=== PATIENT | female | born 1945 | race Caucasian/White ===

== ENCOUNTER 2023-10-26 21:40 | Inpatient (IN) | payer MEDICARE, OTHER, SELFPAY ==
[2023-10-26] VITALS (22 sets, daily range): BP systolic 56–150; BP diastolic 39–108; PULSE 2–122; BMI 22.6
--- NOTE | 2023-10-26 18:19 | ED.GENMED ---
Addendum entered and electronically signed by Boom Harmon, DO 10/27/23 21:51:
Error:
In the MDM, it should read 'EKG performed immediately showing NO evidence of STEMI.'
Original Note:
History of Present Illness
General
Chief Complaint: Breathing Problem
Source: patient and ambulance crew
Exam Limitations: none
Time Seen by Provider: 10/26/23 18:14
History of Present Illness
History of Present Illness:
See MDM
Past History
Past History
ED Past Medical History: COPD and Hypothyroidism
ED Past Surgical History: Negative Cardiac
Social History
Tobacco: Former smoker
Alcohol: None
Drug: None
Personal: Single
Living: alone
Employment: Retired
Family History
Family History: Other (Noncontributory)
Phy Exam
Physical Exam
Physical Exam:
See MDM
Scores
Heart Failure Risk
Heart Failure Risk Score: Not Applicable
Course
Orders/Labs/Results
Orders:
Orders
10/26/23 Dinner
NPO
Allow oral meds: No
Allow clear liquids: No
NPO with Ice Chips: No
10/26/23 18:08
Electrocardiogram (*1) Urgent
Reason for Study: Shortness of Breath
EKG- Treatment ONCE
10/26/23 18:14
BNP [NT-proBNP] Urgent
Complete Blood Count/With Diff Urgent
Comprehensive Metabolic Panel Urgent
Lactic Acid Urgent
PTT Urgent
Troponin I Urgent
Albuterol Sulfate [Ventolin Nebules] 7.5 mg INH R NOW STA
Dexamethasone Sod Phosphate [Decadron] 10 mg IV NOW STA
Ipratropium Nebs [Atrovent Nebules] 1 mg INH R NOW STA
CR Chest Portable - 1 View Urgent
Comment:
Reason For Exam: SOB
Reason Study Needs to be Portable: Patient Unstable
10/26/23 19:01
CT Chest Pe Study Urgent
Comment:
Reason For Exam: SOB, hypoxic
10/26/23 19:07
Furosemide [Lasix] 40 mg IV NOW STA
10/26/23 19:36
Propofol 1,000,000 Mcg/100 ml [Diprivan] 1,000,000 mcg in 100 ml IV NOW
Indication:: Light Sedation
Begin Infusion:: Now
Goal:: RASS 0 to -2
Maximum dose in mcg/kg/min:: 50
Initial dose based on RASS:: Yes
If RASS is:: +1 or pt hemodynamically unstable (SBP < 90mmHg), initiate at 10 mcg/kg/min
If RASS is:: +2, initiate at 20 mcg/kg/min
If RASS is:: greater than or equal to +3, initiate at 30 mcg/kg/min
Titration Instructions:: Titrate by 5-10 mcg/kg/min every 5 minutes until RASS 0 to -2 achieved.
Taper Instructions:: If RASS is at or below goal for 4 consecutive hours decrease infusion by
Taper Instructions:: 5-10 mcg/kg/min every 2 hours to off.
Over-sedation Instructions:: If CPOT 0-2 (at goal) AND RASS -3 to -5 (below goal) decrease sedative by
Over-sedation Instructions:: 50% first. If pain score remains at goal and RASS remains below goal in
Over-sedation Instructions:: 1 hour, decrease opioid infusion by 50%.
Notify provider:: immediately if patient exhibits signs/symptoms of propofol-related
Notify provider:: infusion syndrome.
Additional Instructions:: Patient MUST be mechanically ventilated and MUST receive analgesia.
CR Chest Portable - 1 View Urgent
Comment:
Reason For Exam: intubated
Reason Study Needs to be Portable: Patient Unstable
10/26/23 19:42
Ventilator Initial Settings [RESP] Urgent
Tidal Volume: 400
Rate: 14
FIO2: 100
PEEP: 5
10/26/23 19:44
COVID-19 Antigen Urgent
Source: Nasal Swab
Triglycerides Routine
Comment: baseline levels with propofol infusion
Influenza A+B Rapid Molecular Urgent
MANUEL Source: Nasal Swab
Specimen Description:
10/26/23 20:15
ABG [Arterial Blood Gas] Urgent
%Oxygen/Room Air: 100
Comment: Intubated
10/26/23 20:47
Consult Cardiology [CARDIOLOGY CONSULT] Routine
Consulting Provider: Rohith Molina
Was physician already notified: Yes
10/26/23 20:58
Heparin 3,900 units IV NOW STA
10/26/23 20:[address] Non Medication Order As Directed
Physician Order: PTT 6 hours after initial start of Heparin infusion
Above order entered?: Yes
10/26/23 21:00
Heparin 37820 Units/250 ml 25,000 units in 250 ml IV PER PROTOCOL
Weight to be used for heparin protocol in kilograms (kg):: 65
Protocol:: Cardiac Tx/Acute Coronary
PTT Goal Range to be used:: PTT 73 to 111 seconds
Order type:: Initial
INITIAL Infusion Dose (UNITS/KG/hr) & then follow protocol:: 12 units/kg/hr
Infusion Dose in UNITS/hr & then follow protocol (UNITS/hr):: 800
INFUSION RATE in mL/hr & then follow protocol (mL/hr):: 8
PTT less than or equal to 64 seconds:: Increase rate by 200 units/hr (+ 2 mL/hr)
PTT 64.1 to 72.9 seconds:: Increase rate by 100 units/hr (+ 1 mL/hr)
PTT 73 to 111 seconds:: Target Range. No change in rate.
PTT 111.1 to 130.9 seconds:: Decrease rate by 100 units/hr (- 1 mL/hr)
PTT 131 to 199.9 seconds:: HOLD for 1 hr. Then decrease rate by 200 units/hr (- 2 mL/hr)
PTT greater than or equal to 200 seconds:: HOLD for 2 hrs & Notify Provider. Then decrease by 200 units/hr (-
2 mL/hr)
Lab follow-up:: Each change, PTT q6h until 2 consecutive are therapeutic. Then PTT
daily.
10/26/23 21:12
Heparin 15858 Units/250 ml 25,000 units in 250 ml .ROUTE .STK-MED
10/26/23 21:28
Admit/Transfer Patient As Directed
Co-Sign Provider:
Level of Care: Inpatient admission
Assign to:: ICU
Physician / Group: aditi das
Diagnosis: hypercarbic resp failure,copd exac, Nstemi
Reason for Hospitalization: hypercarbic resp failure,copd exac, Nstemi
Expected length of stay greater than two midnights?: Yes
ELOS- Estimated Length of Stay in days: 5
I certify the patient meets the requirements for IP care: Yes
Code Status As Directed
Resuscitation Status: Full Code
10/26/23 21:33
Blood Culture Q30M
MANUEL Source: Blood/Venous
Specimen Description:
Blood Culture Q30M
MANUEL Source: Blood/Venous
Specimen Description:
10/26/23 21:34
Tractor Engine Assembler Consult Routine
Consulting Provider: Sunday Mina
Was physician already notified: Yes
Reason for consult: hypercarbic resp failure, ibtuation, nstemi
10/26/23 21:[address] Non Medication Order As Directed
Physician Order: place oral gastric tube to intermittent low suction
Above order entered?: Yes
10/26/23 22:19
Dextrose 50%-Water [Dextrose 50% Syringe] 12.5 grams IV [id number] PRN
Glucagon [GlucaGen] 1 mg IM PRN PRN
10/26/23 22:19
VTE Contraindication Routine
VTE Mechanical Device Contraindication: Medical Contraindication
Pharmocologic Contraindication: Medical Contraindication
Comment: pt to bestarted on heparin gtt
Heparin Protocol- PTT Orders As Directed
PTT per Heparin protocol: -Obtain CBC and baseline PTT - if not already collected.
-Obtain PTT 6 hours from start of infusion. Then, every 6 hours until 2 consecutive
PTT's are therapeutic. Then, PTT Daily.
-With each rate change, obtain PTT every 6 hours until 2 consecutive PTT's are
therapeutic. Then, PTT Daily.
Activity As Directed
Activity Level: Bedrest
Bedside Glucose Monitoring As Directed
Frequency: AC&HS
Comment: Change to q6h if pt on TPN, tube feeding or not eating
Intake/ Output As Directed
Frequency: Per unit guidelines
Notify MD As Directed
Notify physician if: PTT is greater than or equal to 200.
Vital Signs As Directed
Frequency: Per unit guidelines
Weight As Directed
Frequency: Daily
Pulse Ox/spot Check [RESP] Routine
Quantity: 1
Ot Eval And Treat Routine
Pt Eval And Treat Routine
Activity Level: As Tolerated
10/26/23 22:33
Osmolality Serum [Serum Osmolality] Routine
Urine Osmolality Random [Osmolality, Random Urine] Routine
Date Specimen was Collected: 10/26/23
Time Specimen was Collected: 22:25
Urine Sodium Routine
Date Specimen was Collected: 10/26/23
Time Specimen was Collected: 22:25
10/27/23 01:55
Troponin I Q6H
10/27/23 02:00
Dexamethasone Sod Phosphate [Decadron] 4 mg IV Q6H
10/27/23 03:19
Cardiovascular Evaluation IN AM
Complete Blood Count/With Diff IN AM
Comprehensive Metabolic Panel IN AM
Glycohemoglobin (HgbA1c) IN AM
TSH Reflex To Free T4 IN AM
10/27/23 06:00
Echo 2D MMode Color/Doppler IN AM
Reason for Study: nstemi
Cardiology Consult: Rohith Molina
10/27/23 07:30
Insulin Aspart Corrective Low [Novolog Flexpen-Low Resistance] See Protocol SC AC
10/27/23 08:00
Ipratropium/Albuterol Sulfate [Duoneb] 3 ml INH R QID
Pantoprazole [Protonix IV] 40 mg IV DAILY
10/27/23 10:36
Troponin I Q6H
10/28/23 06:00
Complete Blood Count/No Diff Q2D
Comment: notify provider: Platelet count < 130,000 or decrease by 50% from baseline
Complete Blood Count/With Diff IN AM
Comprehensive Metabolic Panel IN AM
10/29/23 06:00
Complete Blood Count/With Diff IN AM
Comprehensive Metabolic Panel IN AM
10/30/23 06:00
Complete Blood Count/No Diff Q2D
Comment: notify provider: Platelet count < 130,000 or decrease by 50% from baseline
Complete Blood Count/With Diff IN AM
Comprehensive Metabolic Panel IN AM
11/01/23 06:00
Complete Blood Count/No Diff Q2D
Comment: notify provider: Platelet count < 130,000 or decrease by 50% from baseline
11/03/23 06:00
Complete Blood Count/No Diff Q2D
Comment: notify provider: Platelet count < 130,000 or decrease by 50% from baseline
11/05/23 06:00
Complete Blood Count/No Diff Q2D
Comment: notify provider: Platelet count < 130,000 or decrease by 50% from baseline
11/07/23 06:00
Complete Blood Count/No Diff Q2D
Comment: notify provider: Platelet count < 130,000 or decrease by 50% from baseline
11/09/23 06:00
Complete Blood Count/No Diff Q2D
Comment: notify provider: Platelet count < 130,000 or decrease by 50% from baseline
11/11/23 06:00
Complete Blood Count/No Diff Q2D
Comment: notify provider: Platelet count < 130,000 or decrease by 50% from baseline
Abnormal Lab Results
10/26/23 10/26/23
18:14 20:15
WBC 15.6 H 10^3/uL
(4.8-10.8)
Abs Immat Gran (auto) 0.1 H 10^3/uL
(0-0.05)
Absolute Neuts (auto) 11.5 H 10^3/uL
(1.4-6.5)
Absolute Monos (auto) 0.8 H 10^3/uL
(0.1-0.6)
Lymphocytes % 17.5 L %
(20.5-51.1)
pH 7.20 L
(7.35-7.45)
pCO2 70 H mmHg
(32-35)
pO2 390 H mmHg
(83-108)
ABG O2 Sat (Measured) 100.0 H %
(94-98)
Sodium 129 L mmol/L
(135-145)
Creatinine 0.5 L mg/dL
(0.6-1.0)
Glucose 253 H mg/dl
(70-99)
Lactic Acid 2.7 H mmol/L
(0.7-2.0)
AST 69 H U/L
(14-36)
ALT 53 H U/L
(0-35)
Troponin I 2.500 H* ng/ml
10/26/23 18:14
10/26/23 18:14
Vital Signs
Initial and Last Documented VS:
Initial Vital Signs
Temp Pulse Resp BP Pulse Ox
97.7 F 114 26 144/108 97
10/26/23 18:08 10/26/23 18:08 10/26/23 18:08 10/26/23 18:08 10/26/23 18:08
Last Documented Vital Signs
Temp Pulse Resp BP Pulse Ox
100.1 F 96 18 118/78 95
10/27/23 12:17 10/27/23 11:30 10/27/23 11:30 10/27/23 11:00 10/27/23 12:00
Procedures
Intubations
Procedure completed by: Boom Harmon DO
Method of Intubation: glidescope
Tube size (cm): 7.5
Placement confirmed by: auscutation, CXR, capnography and direct visualization
Breath sounds after intubation: equal
Intubation complications: no complications
MDM/Problems Addressed
Differential Diagnosis Includes:
HPI and MDM Narrative:
77-year-old female presenting with shortness of breath over the past 4 days. EMS arrived and provided aspirin and nitroglycerin. They also provided DuoNeb. EKG performed by EMS was concerning for STEMI. It was transmitted. I did appreciate the
mild ST elevations anteriorly but she has a left bundle branch block and has no reciprocal changes. On arrival, patient has significant wheezing. She has a history of COPD and states she is actively smoking
EKG performed immediately showing evidence of STEMI. Patient started on IV Decadron and hour-long nebulizer treatment
Given her respiratory distress, I did have a conversation with patient in regards to intubation. Patient states she gives consent for intubation if need
Physical exam
General: Uncomfortable, tachypneic, air hungry
HEENT: protecting airway
Neck: appears supple
CV: No evidence of cyanosis. Tachycardic
Resp: accessory muscle use. Significant wheezing throughout
Abd: Non-distended
Extremities: No deformities. No leg edema
Neuro: alert
Psych: Mildly anxious
Skin: Intact
Problems Addressed including Acute and Chronic Conditions affecting care:
1. COPD exacerbation
Acuity: acute
Prognosis: unstable
Details: patient given IV steroids and hour-long treatment nebulizer
2. CANSECO
Acuity: acute
Prognosis: unstable
Details: given the elevated trop, possible ACS. Heparin drip started
Updates
7 PM patient decompensating. Respiratory at bedside to give trial of BiPAP. This time, troponin found to be elevated. Will obtain CT to rule out PE. Chest x-ray concerning for pulmonary edema. Patient given dose of IV Lasix
7:30 PM patient decompensated even more. She is becoming more tachycardic and more lethargic. Patient is asking to go to sleep. Patient intubated without complications or difficulty
Given the respiratory distress with the elevated troponin, I am concerned she had a coronary event 4 days ago causing the symptoms.
Case discussed with cardiology. Will start heparin drip. CT neg for acute PE
ABG consistent with Respiratory acidosis. Will increase respiratory rate
Differential Diagnosis (but not limited to): COPD exacerbation, ACS, pneumonia
Testing considered: D-dimer
Drug therapy (if applicable): OTC meds, please see d/c instruction regarding Rx drugs
Amount and/or Complexity of Data Reviewed
Clinical info obtained from: Patient
External data reviewed: N/A
Labs I independently reviewed (but not limited to): Elevated troponin
Radiology: X-ray independently reviewed: Chest x-ray concerning for pulmonary edema
Pulse Ox: hypoxic
EKG independently reviewed: Sinus tachycardia, left bundle branch block, left axis, no STEMI
Shank Sorter: Sinus tachycardia
Critical Care: The high probability of a clinically significant, sudden or life threatening deterioration of the cardiopulmonary system(s) required my full and direct attention, intervention and personal management. The aggregate critical care time
was 33 minutes. This time is in addition to time spent performing reported procedures but includes the following:
[x] Data Review and interpretation
[x] Patient assessment and monitoring of vital signs
[x] Documentation
[x] Medication orders and management
Risk of Complication:
Social Determinants of health: Good social support
Discussed with other providers: Hospitalist, commissioned police officer
Escalation of Care includes Admit/Obs: Given acute respiratory failure, patient intubated and will admit
Occasional wrong word or 'sound a like' substitutions may have occurred due to the inherent limitations of voice recognition software. Read the chart carefully and recognize, using context, where substitutions have occurred.
*Critical Care Note
Total Time (30-74mins, 75-104mins- exclusive of procedures): 33 min
ED Attending Note
-
Portions of this chart may have been created with voice recognition software.� Occasional wrong word or��sound alike� substitutions may have occurred due to the inherent limitations of voice recognition software.
Discharge Plan
Departure
Patient Disposition: Admit
Date of Disposition: 10/26/23
Time of Disposition: 19:43
Admit to: ICU
Presentation/result/management discussed w/ accepting MD/DO: Hospitalist
Discharge Problem:
Acute respiratory failure, COPD with acute exacerbation
Interventions
Interventions:
*Risk Screen - Suicide Last Done: 10/26/23 18:08
*General Assessment Last Done: 10/26/23 18:08
*Neglect/Abuse Screening Last Done: 10/26/23 18:08
*ED COVID-19 Vaccine History Last Done: 10/26/23 18:08
*Nursing Disposition Last Done: 10/26/23 22:23
ED- Cardiac Assessment Last Done: 10/26/23 18:37
ED- Pulmonary Assessment Last Done: 10/26/23 18:37
Discharge Date and Time
Discharge Date/Time: 10/26/23 22:23
[2023-10-26 18:22] LABS: % Basophils 0.6 % (0-2); % Eosinophils 3.1 % (0-6); % Immature Granulocytes 0.4 % (0-0.5); % Lymphocytes 17.5 % (20.5-51.1); % Monocytes 4.9 % (1.7-9.3); % Neutrophils 73.5 % (42.2-75.2); Absolute Basophils 0.1 10^3/uL (0-0.2); Absolute Eosinophils 0.5 10^3/uL (0-0.7); Absolute Immature Granulocytes 0.1 10^3/uL (0-0.05); Absolute Lymphocytes 2.7 10^3/uL (1.2-3.4); Absolute Monocytes 0.8 10^3/uL (0.1-0.6); Absolute Neutrophils 11.5 10^3/uL (1.4-6.5); Hematocrit 42.9 % (37.0-47.0); Hemoglobin 14.8 g/dL (12.0-16.0); Mean Corp Hgb Conc. 34.5 g/dL (33.0-37.0); Mean Corpuscular Hgb 29.2 pg (27.0-31.0); Mean Corpuscular Volume 84.6 fL (81.0-99.0); Mean Platelet Volume 8.4 fL (7.4-10.4); Nucleated Red Blood Cells % 0 %; Platelet Count 361 10^3/uL (130-400); Red Blood Cell Count 5.07 10^6/uL (4.20-5.40); Red Cell Dist. Width 12.8 % (11.5-14.5); White Blood Cell Count 15.6 10^3/uL (4.8-10.8)
[2023-10-26] MEDS: DECADRON 10 MG IV (18:23)
[2023-10-26] MEDS: VENTOLIN NEBULES 7.5 MG INH (18:23)
[2023-10-26] MEDS: ATROVENT NEBULES 1 MG INH (18:24)
[2023-10-26 18:33] LABS: APTT 26.8 Sec (23.4-35.0)
[2023-10-26 18:45] LABS: ALT (SGPT) 53 U/L (0-35); AST (SGOT) 69 U/L (14-36); Albumin 4.5 g/dl (3.5-5.0); Alkaline Phosphatase 106 U/L (38-126); Blood Urea Nitrogen 11 mg/dl (7-17); Calcium 10.2 mg/dl (8.4-10.2); Carbon Dioxide 23 mmol/L (22-30); Chloride 98 mmol/L (98-107); Glucose 253 mg/dl (70-99); Lactic Acid 2.7 mmol/L (0.7-2.0); Potassium 4.4 mmol/L (3.5-5.1); Sodium 129 mmol/L (135-145); Total Bilirubin 0.4 mg/dl (0.2-1.3); Total Protein 7.2 g/dl (6.3-8.2); eGFR > 60.00
[2023-10-26 18:59] LABS: NT-proBNP 447 pg/ml
[2023-10-26] MEDS: LASIX 40 MG IV (19:13)
--- NOTE | 2023-10-26 19:22 | PHANOTE ---
10/26/2023, med rec tech, pt. placed on vent at time of interview; used recent pharmacy fill data to compile a list of pt.'s meds.; was not able to reach family on the phone; pt. has no [facility] records.
--- NOTE | 2023-10-26 19:25 | EDRN ---
20mg etomidate and 10mg vecc was given at this time. Dr. Harmon intubated patient using GlideScope, 7.5 ETT measured at 20 at the lip.
Patient started on propofol for sedation.
--- NOTE | 2023-10-26 19:34 | EDRN ---
propofol started at 7.8ml/hr (20mcg)
[2023-10-26] MEDS: DIPRIVAN 100 IV (19:39)
--- NOTE | 2023-10-26 19:48 | EDRN ---
Patient swabbed for covid and flu.
Portable xray showed ET tube was a little high. Moved from 20 at the lip to 22 at the lip per Dr. Harmon.
Patient ready for CT.
[2023-10-26 20:19] LABS: COVID-19 Antigen Negative (Negative); Triglycerides 105 mg/dl (10-149)
--- NOTE | 2023-10-26 20:22 | EDRN ---
Patient showing improvement after being intubated. Patient's heart rate has come down into the 80-90's. Patient's oxygen is at 100% with no preliminary showing of any PE on the CT. ABG being obtained by respiratory at this time. Patient has purewick
in place.
2 IV sites. Right 18g with propofol infusing still at initial rate of 20, left 20g. Patient's BP 114/81.
400/14/100/5 currently.
Currently waiting for admission orders.
[2023-10-26 20:31] LABS: B.E. -2.5 mmol/L; HCO3 27.4 mmol/L (21-28); PCO2 70 mmHg (32-35); PO2 390 mmHg (83-108)
--- NOTE | 2023-10-26 20:49 | EDRN ---
Rate changed from [address] Harmon according to AB results.
--- NOTE | 2023-10-26 20:59 | HPS.HSE ---
Addendum entered and electronically signed by Amy Woods MD 10/27/23 00:15:
Hyperglycemia - Glucose 253. No prior dgx of diabetes and now on steroids.
- check a1c, start sliding scale insulin q 6 hours for now
- lipid panel
Original Note:
Family Physician
<LIZETH Solis - Last Filed: 10/26/23 21:28>
-
Family Physician: NOT KNOW UNKNOWN - PT DOES
Chief Complaint
<LIZETH Solis - Last Filed: 10/26/23 21:28>
-
resp distress chest pain
History of Present Illness
77-year-old female by ambulance from home per ER chart complaining of shortness of breath that started a few days ago she also reports chest pain. She was given nitro sublingual and 324 mg aspirin en route by EMS prior to arrival.
On arrival to the ER she had significant wheezing according to the ER was giving IV Decadron and hour-long nebulizer treatment BiPAP was attempted at bedside patient was given IV Lasix dose due to chest x-ray concerning for pulmonary edema. The
patient then started having respiratory distress becoming more lethargic, cyanotic with decreased respiratory effort and was intubated in the ER.
She has past medical history of A-fib, HLD, COPD, active smoker hypothyroidism, depression.
Medical History
<LIZETH Solis - Last Filed: 10/26/23 21:28>
Past Medical History
Past Medical History: Reports Other
Additional Past Medical History:
A-fib, HLD, COPD, active smoker hypothyroidism, depression.
Past Surgical History: Reports Appendectomy and Other
Social History
Tobacco: Smoker
Family History
Family History: Unable to Obtain
Allergies / Home Medications
Allergies reflects when Allergies were last updated in [employer].
Home Medications with original date entered in [employer]
Allergy/Medication List:
Medications on admission are unable to be verified or confirmed at this time.
Review of Systems
<LIZETH Solis - Last Filed: 10/26/23 21:28>
-
History Source: Physician and Other (ER record, bedside nurse)
A 12 point ROS was completed and negative except as noted: Yes
Constitutional: Denies Fever
EENT: Denies Runny Nose
Respiratory: Reports Trouble Breathing (Shortness of breath, hypoxia, cyanosis)
Cardiac: Reports Chest Pain and Diaphoresis
Abdomen/GI: Denies Nausea, Vomiting or Diarrhea
Musculoskeletal: Denies Joint Swelling or Edema
Skin: Denies Rash
Neurological: Denies Headache
Physical Exam
<LIZETH Solis - Last Filed: 10/26/23 21:28>
Vital Signs
Vital Signs
Temp Pulse Resp BP Pulse Ox
97.7 F 89 14 115/82 100
10/26/23 18:08 10/26/23 20:30 10/26/23 20:30 10/26/23 20:30 10/26/23 19:45
Physical Exam
General: Intubated
HEENT: PERRLA, Palomas Conjunctivae and Oxygen (Patient orally intubated)
Respiratory: Clear; No Wheezes, Rales or Rhonchi
Cardiac: S1/S2 and Tachycardia; No Murmur, Rub, Gallop or Peripheral Edema
Breast: Deferred by me
GI: Soft, Non Tender, Non Distended, Normal Bowel Sounds and No Hepatosplenomegaly
Rectal: Deferred by Provider
Genito-urinary: Deferred by me
Musculoskeletal: No Clubbing, No Cyanosis and No Edema
Skin: Warm and Dry; No Rash
Neuro: Other (Intubated and sedated with IV propofol)
Laboratory Results
<LIZETH Solis - Last Filed: 10/26/23 21:28>
-
10/26/23 18:14
10/26/23 18:14
Laboratory Results
APTT 26.8 Sec (23.4-35.0) 10/26/23 18:14
pH 7.20 (7.35-7.45) L 10/26/23 20:15
pCO2 70 mmHg (32-35) H 10/26/23 20:15
pO2 390 mmHg (83-108) H 10/26/23 20:15
HCO3 27.4 mmol/L (21-28) 10/26/23 20:15
Lactic Acid 2.7 mmol/L (0.7-2.0) H 10/26/23 18:14
Total Bilirubin 0.4 mg/dl (0.2-1.3) 10/26/23 18:14
AST 69 U/L (14-36) H 10/26/23 18:14
ALT 53 U/L (0-35) H 10/26/23 18:14
Alkaline Phosphatase 106 U/L (38-126) 10/26/23 18:14
Troponin I 2.500 ng/ml H* 10/26/23 18:14
Data Reviewed
<LIZETH Solis - Last Filed: 10/26/23 21:28>
-
Diagnostic Radiology: Report Reviewed by me
CT Scan: Report Reviewed by me
Lab Data: Labs Reviewed by me
Impression/Plan
<LIZETH Solis - Last Filed: 10/26/23 21:28>
-
Impression/plan:
Admit to ICU
#Acute hypercarbic respiratory failure 2/2 Acute pulm edema/COPD exacerbation
#Acute leukocytosis unclear etiology likely
WBC 15.3, lactic acid 2.7.
BNP 447
COVID/flu -negative
-Blood cultures x 2
-Patient currently intubated settings 400, 16, 80%, PEEP 5
- decadron 4mg q6h
-IV Lasix 40 mg given once in Er hold further doses
-DuoNebs scheduled and as needed
-IV propofol for sedation
-Consult residential field manager
CXR: Borderline pulmonary interstitial edema slightly improved interval intubation with endotracheal tube tip tube tip terminating 4.8 cm
#NStemi
Chest pain over the past 4 days
Troponin 2.5, will trend
-Consult cardiology Dr. Molina aware
-2D echo in a.m.
-Iv heparin gtt
-CT PE study negative PE
EKG sinus tach occasional PACs 125 bpm, QTc 458 MS concern for septal infarct
#HTN emergency
140/101 > 115/82 post IV Lasix, propofol
#Acute hyperglycemia concern for DM2
Blood sugar 257
Accu-Cheks with SSI, check HgbA1c
# Acute hyponatremia
NA 129
Check TSH with free T4, urine NA, urine Osmo, serum Osmo
#Mild transaminitis likely reactive
Will follow CMP
#Paroxysmal A-fib
-EKG current sinus tach PACs
Unable to clarify if patient still on outpatient diltiazem
#Hypothyroidism
-TSH with free T4 reflex
HAND ROLLER levothyroxine prior dose was 150 mcg daily
#Depression hx
-Prior medication record was on Lexapro unable to current leg clarify
DVT prophylaxis
iv heparin gtt
Full code
<Amy Woods MD - Last Filed: 10/26/23 23:55>
-
Impression/plan:
Admit to ICU
#Acute hypercarbic respiratory failure 2/2 Acute pulm edema/COPD exacerbation
#Acute leukocytosis unclear etiology likely
WBC 15.3, lactic acid 2.7.
BNP 447
COVID/flu -negative
-Blood cultures x 2
-Patient currently intubated settings 400, 16, 80%, PEEP 5
- decadron 4mg q6h
-IV Lasix 40 mg given once in Er hold further doses
-DuoNebs scheduled and as needed
-IV propofol for sedation
-Consult residential field manager
CXR: Borderline pulmonary interstitial edema slightly improved interval intubation with endotracheal tube tip tube tip terminating 4.8 cm
#NStemi
Chest pain over the past 4 days
Troponin 2.5, will trend
-Consult cardiology Dr. Molina aware
-2D echo in a.m.
-Iv heparin gtt
-CT PE study negative PE
EKG sinus tach occasional PACs 125 bpm, QTc 458 MS concern for septal infarct
#HTN emergency
140/101 > 115/82 post IV Lasix, propofol
#Acute hyperglycemia concern for DM2
Blood sugar 257
Accu-Cheks with SSI, check HgbA1c
# Acute hyponatremia
NA 129
Check TSH with free T4, urine NA, urine Osmo, serum Osmo
#Mild transaminitis likely reactive
Will follow CMP
#Paroxysmal A-fib
-EKG current sinus tach PACs
Unable to clarify if patient still on outpatient diltiazem
#Hypothyroidism
-TSH with free T4 reflex
HAND ROLLER levothyroxine prior dose was 150 mcg daily
#Depression hx
-Prior medication record was on Lexapro unable to current leg clarify
DVT prophylaxis
iv heparin gtt
Full code
Attending Addendum:
Patient seen independently and evaluated with MUSIC SPECIALIST. Agree with her findings and assessment as indicated in the note above. Briefly, patient is a very poor historian was unresponsive, intubated and sedated at the time of my evaluation. History
obtained from chart noted that the patient has been complaining of 4 days of chest pain/no shortness of breath. Called EMS today due to progression. EMS initially read ECG is concerning for acute ischemia and given patient nitroglycerin and
aspirin en route to the ED. ECG in the ED negative for ischemia. However troponin was elevated at 2.5. He arrived with normal oxygenation on room air was marked work of breathing was found to have acute respiratory acidosis. Chest x-ray was
negative for infiltrates but did showed borderline interstitial edema. Patient decompensated further and a CT PE was started which was negative for PE and showed no acute infiltrates or edema. Patient intubated for worsening work of breathing. On
my exam she had no JVD and no peripheral edema. On the vent oxygen requirement was minimal she continued to acute CO2 retention with respiratory acidosis. Patient clearly with COPD exacerbation with unclear trigger. Possibly NSTEMI triggering a
COPD exacerbation versus CVA demand ischemia in the setting of 4 days of COPD exacerbation. On the vent wheezing was limited but airflow was also diminished.
Agree with assessment and plan as above.
COPD exacerbation- Steroid nebs azithromycin (Qtc 458, will repeat ECG in am). Negative COVID/FLu.
NSTEMI, aspirin, heparin gtt, echo, cards consult
CHF? - Normal BNP and no peripheral edema. Lasix 40mg trial in ED. Boderline hypotensive on propofol. Echo in am. With 100% sat on vent and lowering FIO2, will hold off on additional lasix for now
AFIB - ECG with sinus tach and non-specific ST changes. ? h/o afib as patient on diltiazem. S/P intubation she was rate controlled in NSR. continue diltiazem as bp tolerates for now. Already on heparin gtt
Full code
--- NOTE | 2023-10-26 21:10 | EDRN ---
Vent settings changed to 16/400/80/5
[2023-10-26] MEDS: HEPARIN 3900 UNITS IV (21:15)
[2023-10-26] MEDS: HEPARIN 25000 UNITS/250 ML IV (21:16)
--- NOTE | 2023-10-26 22:30 | PTCARENOTE ---
Pt arrived from ED, transferred to bed. Pt nonverbal, intubated, attempting to pull at ET tube. Respiratory at the bedside, vent settings as ordered. Propofol gtt @35/mcg/kg/min and heparin at 8ml/hr. Goddard and OG placed. BL soft limb restraints
applied.
[2023-10-26 22:48] LABS: Venous Blood Gas B.E. -0.7 mmol/L (-4 to +4); Venous Blood Gas HCO3 30.6 mmol/L (22-27); Venous Blood Gas O2 Sat % 81.5 %; Venous Blood Gas pO2 50 mmHg (30-50)
[2023-10-26] MEDS: SUBLIMAZE 50 MCG IV (22:48)
[2023-10-26 22:52] LABS: Venous Blood Gas pCO2 82 mmHg (35-48); Venous Blood Gas pH 7.18 (7.32-7.43)
[2023-10-26 23:02] LABS: Osmolality Urine 337 mOsm/kg (300-900)
[2023-10-26 23:08] LABS: Urine Sodium 99 mmol/L (30-90)
[2023-10-27] VITALS (30 sets, daily range): BP systolic 83–141; BP diastolic 52–87; BMI 22.7
--- NOTE | 2023-10-27 00:18 | W.PN.UPDATE ---
Update Note
Progress Note Update
Procedure Note: Arterial Line�
� Right Wrist Arrow 20 (09/15)�
Diagnosis:�COPD exacerbation �
IV Line Comments: Uneventful Procedure�
Ernesto's test completed pre-procedure: Yes�
A-Line Comments: Sterile technique as per standard protocol, Ultrasound guided insertion�
Functioning A-line in situ: Yes�
A-line Insertion Start Time:�0005�
A-line in at:�0010�
[2023-10-27] MEDS: ZITHROMAX INFUSION 250 IV (00:43)
[2023-10-27] MEDS: DIPRIVAN 100 IV (00:48)
[2023-10-27 01:07] LABS: Glucose - Point of Care 128 mg/dl (70-99)
[2023-10-27] MEDS: SUBLIMAZE 25 MCG IV ×2 (01:23→06:14)
--- NOTE | 2023-10-27 01:30 | PTCARENOTE ---
Pt appears uncomfortable, restless in bed, pulling at restraints. PRN IV fentanyl given. Propofol gtt remains at 25mcg/kg/min. heparin gtt at 8ml/hr. lion draining clear yellow urine. restraints in place.
[2023-10-27 02:23] LABS: Osmolality Serum 283 mOsm/kg (275-300)
[2023-10-27] MEDS: DECADRON 4 MG IV ×3 (03:30→20:29)
[2023-10-27 03:34] LABS: % Basophils 0.2 % (0-2); % Eosinophils 0.2 % (0-6); % Immature Granulocytes 0.9 % (0-0.5); % Lymphocytes 8.6 % (20.5-51.1); % Monocytes 2.7 % (1.7-9.3); % Neutrophils 87.4 % (42.2-75.2); Absolute Immature Granulocytes 0.1 10^3/uL (0-0.05); Absolute Monocytes 0.3 10^3/uL (0.1-0.6); Absolute Neutrophils 10.4 10^3/uL (1.4-6.5); Hematocrit 39.6 % (37.0-47.0); Mean Corp Hgb Conc. 35.4 g/dL (33.0-37.0); Mean Corpuscular Hgb 29.4 pg (27.0-31.0); Mean Corpuscular Volume 83.2 fL (81.0-99.0); Mean Platelet Volume 8.5 fL (7.4-10.4); Nucleated Red Blood Cells % 0 %; Platelet Count 277 10^3/uL (130-400); Red Blood Cell Count 4.76 10^6/uL (4.20-5.40); Red Cell Dist. Width 12.6 % (11.5-14.5); White Blood Cell Count 11.9 10^3/uL (4.8-10.8)
[2023-10-27 03:44] LABS: B.E. 1.3 mmol/L; HCO3 25.9 mmol/L (21-28); Ionized Calcium 1.23 mMOL/L (1.15-1.33); O2 Saturation % 98.7 % (94-98); PCO2 40 mmHg (32-35); PO2 88 mmHg (83-108); Potassium 4.3 mMOL/L (3.5-5.1); Sodium 131 mMOL/L (136-145); pH 7.42 (7.35-7.45)
[2023-10-27 03:45] LABS: INR 1.16; PT 14.6 Sec (11.4-14.6)
[2023-10-27 03:47] LABS: APTT 90.2 Sec (23.4-35.0)
[2023-10-27 04:17] LABS: ALT (SGPT) 69 U/L (0-35); AST (SGOT) 82 U/L (14-36); Albumin 4.4 g/dl (3.5-5.0); Alkaline Phosphatase 102 U/L (38-126); Blood Urea Nitrogen 14 mg/dl (7-17); Calcium 10.1 mg/dl (8.4-10.2); Carbon Dioxide 25 mmol/L (22-30); Chloride 97 mmol/L (98-107); Estimated Creatinine Clearance 75 ml/min; Glucose 134 mg/dl (70-99); HDL Cholesterol 72 mg/dl; LDL Cholesterol, Calculated 38 mg/dl; Potassium 4.3 mmol/L (3.5-5.1); Sodium 133 mmol/L (135-145); Total Bilirubin 0.5 mg/dl (0.2-1.3); Total Cholesterol 121 mg/dl (50-199); Total Protein 6.8 g/dl (6.3-8.2); Triglyceride 59 mg/dl (10-149); Very Low Density Lipoprotein 11 mg/dl (0-30); eGFR > 60.00
[2023-10-27 04:32] LABS: TSH Reflex To Free T4 5.42 uIU/ml (0.47-4.68)
[2023-10-27 05:09] LABS: Free T4 1.53 ng/dl (0.78-2.19)
[2023-10-27 06:29] LABS: Glucose - Point of Care 119 mg/dl (70-99)
--- NOTE | 2023-10-27 07:08 | CON.INTV ---
Consultation
Consultation Request
Date/Time Consultation Requested: 10/27/23
Date/Time Consultation Performed: 10/27/23
Reason for Consultation: critical care
Medical History
-
History of Present Illness:
History obtained from the chart, as patient is intubated and sedated at this time. Patient is a 77-year-old female with history of COPD, history of tobacco use, presents to the ED 10/25 with shortness of breath by ambulance. Records suggest
shortness of breath for 4 days. Patient was given aspirin and nitroglycerin in the field along with a nebulized treatment. EKG was worrisome for STEMI. Patient had left bundle branch block upon arrival, patient given IV steroids and nebulized
therapy. Given her respiratory distress, she was intubated without difficulty. Vitals upon arrival afebrile, pulse 114, breathing at 26, blood pressure 144/108, 97%. Of note, ABG revealed pH 7.20/pCO2 70, pO2 390. blood work showed normal
creatinine, hemoglobin, white count 15.6. We are asked to help from critical care standpoint
Attempted to contact the daughter, no answer. No other history available at this time
.
PMH: COPD, hypertension
Past Medical History
Past Medical History: None (See above)
Past Surgical History: None (See above)
Social History
Tobacco: Former Smoker
Family History
Family History: Unable to Obtain
Allergies / Home Medications
Allergies
Allergy/AdvReac Type Severity Reaction Status Date / Time
codeine Allergy Unknown Verified 05/06/23 17:33
meperidine [From Demerol] Allergy Unknown Verified 05/06/23 17:33
Home Medications
�Medication �Instructions �Recorded �Confirmed �Last Taken �Type
albuterol sulfate 90 mcg/actuation 2 puff inhalation R Q4HPRN PRN 10/26/23 Unknown History
aerosol inhaler sob/wheezing
atorvastatin 40 mg tablet 40 mg PO DAILY 10/26/23 Unknown History
diltiazem HCl 180 mg capsule,24 180 mg PO DAILY 10/26/23 Unknown History
hr,extended release
donepezil 10 mg tablet 10 mg PO HS 10/26/23 Unknown History
escitalopram oxalate 20 mg tablet 20 mg PO DAILY 10/26/23 Unknown History
levothyroxine 150 mcg tablet 150 mcg PO DAILY 10/26/23 Unknown History
umeclidinium 62.5 mcg-vilanterol 1 inh inhalation R DAILY 10/26/23 Unknown History
25 mcg/actuation powdr for
inhalation (Anoro Ellipta)
Review of Systems
-
Unable to Obtain full review of systems at this time due to: Patient Intubation
Vitals / Labs / Diagnostic Testing
Vital Signs
Temp Pulse Resp BP Pulse Ox
97.7 F 91 18 122/87 98
10/26/23 18:08 10/27/23 06:00 10/27/23 06:00 10/27/23 06:00 10/27/23 06:00
Lab Data
10/27/23 03:19
10/27/23 03:19
Laboratory Results
10/26/23 10/26/23 10/27/23
18:14 20:15 03:19
PT 14.6
INR 1.16
APTT 26.8 Cancelled
pH 7.20 L
pCO2 70 H
pO2 390 H
HCO3 27.4
O2 Delivery Level
10/27/23
03:19
PT
INR
APTT 90.2 H
pH 7.42
pCO2 40 H
pO2 88
HCO3 25.9
O2 Delivery Level
Microbiology
10/26/23 19:44 Nasal Swab Influenza Types A & B (TRISTAN) - Final
Negative for Influenza A & B, NAAT
Negative results must be combined with clinical observations
and patient history.
Nucleic Acid Amplification test (NAAT)performed on the
[employer] platform.
Diagnostic Testing:
Physical Exam
-
HEENT: Normocephalic and Anicteric
Cardiovascular: S1/S2, Regular Rhythm, Murmur (n), Rub (n), Peripheral Edema (n) and Calf Tenderness (n)
Respiratory: Wheeze (n), Rales (n), Rhonchi (n) and Non-Labored Respirations
GI: Soft, Non Distended and Non Tender
Neurology: Other (Sedated, moving all extremities)
Skin: Other (No clubbing, cyanosis)
Assessment
-
77-year-old female with history of suspected COPD, former smoker per records, presented with shortness of breath for 4 days. Patient was given aspirin nitroglycerin in the field and nebulized therapy due to significant wheezing. Upon arrival,
given IV Lasix. Patient had developed increased lethargy, hypercapnia, required intubation in the ED. We are asked to help from critical care standpoint
Acute hypercapnic/hypoxic respiratory failure
Intubated 10/26/23
Suspected pulm edema, diffuse wheezing
Unremarkable CT chest, no evidence of PE
Left bundle branch block, tachycardia
Leukocytosis
Hyponatremia
Hyperglycemia
Elevated lactate
Mild acute transaminitis
Elevated troponin
Plan/recommendations
At this time, patient remains critically ill. She has not required any pressors. No wheezing on exam at this time.
Airway pressures adequate
Peak pressure 27, plateau pressure 17
Moving forward
Given presentation and discussion with cardiology, suspect coronary disease, heart failure
Wheezing likely pulmonary edema
Given rapidity of developing hypercapnia, likely component of COPD
Continue steroids for now with low threshold to discontinue once extubated depending on how she is doing
Nebulized therapy
Presently on azithromycin which is adequate. CT chest without acute infiltrate
Remains on heparin for NSTEMI
Await formal report of CT chest negative PE per my review
Received aspirin in the field.
This will continue
Repeat EKG. Initial EKG with bundle branch block
Cardiology following
Empiric [id number]-akvzy nebulized therapy, Brenden for now
Attempted to contact daughter, no answer
Will need to obtain additional information
Possible extubation later today depending on how she does
DVT prophylaxis: Remains on heparin drip
GI prophylaxis: On pantoprazole
Reviewed with critical care nursing, respiratory care
Reviewed with cardiology
TCCT 35 min
[2023-10-27] MEDS: DUONEB 3 ML INH ×4 (07:25→19:28)
[2023-10-27] MEDS: PROTONIX IV 40 MG IV (08:21)
[2023-10-27] MEDS: NSS (PRESERVATIVE FREE) 10 ML IV (08:21)
[2023-10-27] MEDS: FLUSH (NSS) 2 FLUSH IV (08:21)
--- NOTE | 2023-10-27 08:30 | PTCARENOTE ---
Rec'd pt at 0730 resting in bed sedated on Diprivan at 30 mcg. Does open eyes to verbal and tactile stimuli but then drifts back off. RASS is a -2, CPOT a 2. LFOYD at 2mm. KIRAN. Bilateral soft wrist restraints in place as pt will reach up toward ETT.
Skin is pink and dry. Hand and feet are cool to the touch- however nailbeds while sl dusky have refill <2 seconds. Respirs are intact on the vent. #7.5 ETT at the 22 cm chadd -retaped in the center of the mouth. Vent settings AC 18, tv 400, peep 5,
Fio2 40%. BS are decreased and sl coarse throughout. Adds a little additional volume and occasional extra breath. Sats are 99%. Monitor SR. VS as documented. R radial a line in place. Site wnl. Zeroed and recalibrated-within 10-15 mm/hg higher than
cuff bp. Waveform as documented. + pulses. DP's are weak. No edema. Abd is soft with + Sl hypoactive BS. Orogastric [place] to low int suction. Placement checked. Draining brownish drainage. Thermistor lion intact for yellow urine. IV Diprivan
infusing via RAC IV site. Pt also on Heparin gtt at 800 units/hr via LAC IV site. Repositioned. CHG bath given. Lion and mouth care given. Dr. Mina in and plan is to wean pt for possible extubation. Diprivan decreased for SBT to 20 mcg at 0820.
Will monitor closely.
[2023-10-27 09:00] LABS: Glycohemoglobin (HgbA1c) 5.9 % (4.0-5.6)
--- NOTE | 2023-10-27 09:20 | PTCARENOTE ---
Ottoniel currently at 10 mcg. ECG done. Pt placed at 0915 on CPAP 5/PS 8 40% fio2 wean with sats of 98%. RR 16-22, tv 330-450. Pt is drowsy but easily wakeful and nodding head appropriately and following basic commands. Dr. Mina in to see pt and
updated.
--- NOTE | 2023-10-27 09:30 | PTCARENOTE ---
Rec'd pt at 0730 resting in bed sedated on Diprivan at 30 mcg. Does open eyes to verbal and tactile stimuli but then drifts back off. RASS is a -2, CPOT a 2. FLOYD at 2mm. KIRAN. Bilateral soft wrist restraints in place as pt will reach up toward ETT.
Skin is pink and dry. Hand and feet are cool to the touch- however nailbeds while sl dusky have refill <2 seconds. Respirs are intact on the vent. #7.5 ETT at the 22 cm chadd -retaped in the center of the mouth. Vent settings AC 18, tv 400, peep 5,
Fio2 40%. BS are decreased and sl coarse throughout. Adds a little additional volume and occasional extra breath. Sats are 99%. Monitor SR. VS as documented. R radial a line in place. Site wnl. Zeroed and recalibrated-within 10-15 mm/hg higher than
cuff bp. Waveform as documented. + pulses. DP's are weak. No edema. Abd is soft with + Sl hypoactive BS. Orogastric salem to low int suction. Placement checked. Draining brownish drainage. Thermistor lion intact for yellow urine. IV Diprivan
infusing via RAC IV site. Pt also on Heparin gtt at 800 units/hr via LAC IV site. Repositioned. Dr. Mina in and plan is to wean pt for possible extubation. Diprivan decreased for SBT to 20 mcg at 0820. Will monitor closely.
--- NOTE | 2023-10-27 09:35 | CON.CAR ---
Consultation
Consultation Request
Date/Time Consultation Requested: October 27, 2023
Date/Time Consultation Performed: October 27, 2023
Requesting Provider: Faustino
Performing Provider: Jesse
Reason for Consultation: Elevated troponin
Medical History
-
Chief Complaint: Elevated troponin
History of Present Illness:
77-year-old female with history of suspected COPD, former smoker per records, presented with shortness of breath for 4 days. History is provided from the chart, discussions with the ER physician, review of records, as she is intubated currently.
Patient was given aspirin nitroglycerin in the field and nebulized therapy due to significant wheezing. Upon arrival, given IV Lasix. Patient had developed increased lethargy, hypercapnia, required intubation in the ED. she was also noted to have
a left bundle branch block on resting ECG and troponin of 2.5 upon presentation in the setting of 4 days of dyspnea on exertion. Despite the bundle-branch block there was no findings on the ECG supportive of significant cardiac ischemia.
Past medical history notable for:
Acute hypercapnic/hypoxic respiratory failure
Suspected pulm edema, diffuse wheezing
Unremarkable CT chest, no evidence of PE
Left bundle branch block
Leukocytosis
Hyponatremia
Hyperglycemia
Elevated lactate
Mild acute transaminitis
Elevated troponin
Past Medical History
Past Medical History: COPD
Social History
Tobacco: Smoker
Alcohol: None
Drug: None
Personal: Other
Living: Other
Employment: Not Employed
Family History
Family History: Reviewed & Not Pertinent
Allergies / Home Medications
Allergy/AdvReac Type Severity Reaction Status Date / Time
codeine Allergy Unknown Verified 05/06/23 17:33
meperidine [From Demerol] Allergy Unknown Verified 05/06/23 17:33
�Medication �Instructions �Recorded �Confirmed �Type
albuterol sulfate 90 mcg/actuation 2 puff inhalation R Q4HPRN PRN 10/26/23 History
aerosol inhaler sob/wheezing
atorvastatin 40 mg tablet 40 mg PO DAILY 10/26/23 History
diltiazem HCl 180 mg capsule,24 180 mg PO DAILY 10/26/23 History
hr,extended release
donepezil 10 mg tablet 10 mg PO HS 10/26/23 History
escitalopram oxalate 20 mg tablet 20 mg PO DAILY 10/26/23 History
levothyroxine 150 mcg tablet 150 mcg PO DAILY 10/26/23 History
umeclidinium 62.5 mcg-vilanterol 1 inh inhalation R DAILY 10/26/23 History
25 mcg/actuation powdr for
inhalation (Anoro Ellipta)
Review of Systems
-
Unable to obtain full review of systems at this time due to: Patient Intubation
All other systems: Negative unless noted
Physical Exam
Vital Signs
Temp Pulse Resp BP Pulse Ox
99.9 F 79 18 122/87 98
10/27/23 07:51 10/27/23 07:33 10/27/23 07:33 10/27/23 06:00 10/27/23 07:33
Lab Results
10/27/23 03:19
10/27/23 03:19
Troponin I 2.610 ng/ml H* 10/27/23 01:55
Kqq-Q-Pwafgstbdys Pept 447 pg/ml 10/26/23 18:14
Physical Exam
General: Well Developed, Comfortable and Intubated
HEENT: Normocephalic and Anicteric
Respiratory: Wheezes and Rhonchi
Cardiac: Regular Rhythm
Breast: Deferred by me
GI: Soft, Non Tender, Non Distended and Flat
Rectal: Deferred by Provider
Genito-urinary: Clear Urine
Musculoskeletal: No Clubbing, No Cyanosis and No Edema
Skin: Warm and Dry
Neuro: Sedated
Hematologic/Lymphatic: No Lymphadenopathy
Psych: Calm
Impression / Plan
-
Impression:
Acute congestive heart failure, unspecified
Acute hypercapnic/hypoxic respiratory failure
COPD exacerbation
Unremarkable CT chest, no evidence of PE
Left bundle branch block
Leukocytosis
Hyponatremia
Hyperglycemia
Elevated lactate
Mild acute transaminitis
Elevated troponin-mechanism of her elevated troponin is likely due to demand ischemia and potentially acute congestive heart failure
Recommendations:
Agree with IV diuresis as you are
Appreciate pulmonary critical care input managing COPD and intubation
Trend troponin
Check echo Saturday
I have no objection to attempts at extubation
We will need old records
At some point she will require an ischemia evaluation but will defer until her other medical issues are stable
Daily aspirin
Can utilize diltiazem for rate control 180 mg p.o. daily once taking p.o.'s which is listed in her outpatient medications
Will follow with you
Data Reviewed
-
EKG: Tracing Personally Visualized and interpreted
Radiology: Image Personally Visualized and interpreted and Report Reviewed by me
Medical Tests (Nuc Med, Echo etc): Image Personally Visualized and interpreted and Report Reviewed by me
Labs: Labs Reviewed by me
Old Records: Requested
--- NOTE | 2023-10-27 10:40 | PTCARENOTE ---
Labs sent- abg sent. Pt tolerating CPAP/PSV remains on DIprivan at 10 mcg but pt is easiily wakeful, calm, following commands. Denies pain. RR 18-22. Tv [id number]. Sats 98%.
--- NOTE | 2023-10-27 10:45 | PTCARENOTE ---
Tolerating CPAP 5/PS 8 Fio2 40% sats are 98% and RR 16-20. ABG and Labs sent. Pt is awake but overall relaxed and following commands. Propphol on at 10 mcg and will dc if plan is to extubate. No other changes
[2023-10-27 10:54] LABS: HCO3 26.5 mmol/L (21-28); O2 Saturation % 99.4 % (94-98); PCO2 40 mmHg (32-35); PO2 121 mmHg (83-108); pH 7.43 (7.35-7.45)
[2023-10-27 11:01] LABS: APTT 64.2 Sec (23.4-35.0)
--- NOTE | 2023-10-27 11:23 | W.PN.UPDATE ---
Update Note
Progress Note Update
Patient underwent SBT
Airway pressures adequate
Chest exam is clear. Patient following commands
ABG reviewed, adequate oxygenation/ventilation
Extubated to nasal cannula without difficulty. Patient vocalizing
She is on nebulizer and inhaler as outpatient.
Sees pulmonary at [facility]
Moving forward
Nebulizer (DuoNeb 4 times daily)
Continue steroids for now
Depending on how she does in the next 24 to 48 hours, transition to inhaler regimen and off steroids
Lasix therapy per cardiology
Restart oral meds when able, calcium channel mily.
Daily aspirin
Ischemic evaluation, echocardiogram per cardiology
Reviewed with primary service and cardiology
--- NOTE | 2023-10-27 11:25 | PTCARENOTE ---
Dr. Mina aware of ABG results and at 1120 pt extubated to 4l nc with sats of 98%. Able to speak and just asking what had happened last night to her. Explanations given. Pt does have a tremor- not seen when sedated. She says always has a tremor.
PTT resulted as 64.2- Per protocol Heparin gtt increased to 900 units/hr. Denies pain or discomfort. Dr. Mina updated on limited urine output of only about 10-20 mls/hr. Restraints removed.
--- NOTE | 2023-10-27 11:30 | PTCARENOTE ---
Additional assessment- OG tube removed with extubation
[2023-10-27 12:06] LABS: Glucose - Point of Care 100 mg/dl (70-99)
--- NOTE | 2023-10-27 13:21 | W.PN.HOSP.TC ---
Addendum entered and electronically signed by Evan Snyder MD 10/27/23 15:36:
Acute hypoxic and hypercapnic respiratory failure*
Original Note:
Today's Communication/Plan
-
extubated today
wean steroids - most likely rapidly
iv lasix as per cards
ischemic work up as per cards
duonebs for now
Assessment / Plan
Assessment / Plan
Physical Exam
General: Intubated
HEENT: PERRLA, [place] Conjunctivae and Oxygen (Patient orally intubated) - awake and following commands
Respiratory: Clear; No Wheezes, Rales or Rhonchi
Cardiac: S1/S2 and Tachycardia; No Murmur, Rub, Gallop or Peripheral Edema
Breast: Deferred by me
GI: Soft, Non Tender, Non Distended, Normal Bowel Sounds and No Hepatosplenomegaly
Rectal: Deferred by Provider
Genito-urinary: Deferred by me
Musculoskeletal: No Clubbing, No Cyanosis and No Edema
Skin: Warm and Dry; No Rash
Acute hypoxic and hypercapnic respite failure
� Most likely secondary to acute pulmonary edema, mild as well as possible exacerbating COPD
� SBT today, extubated this afternoon to nasal cannula
� Continue IV Lasix as per cardiology
� Chronic steroid taper, defer to pulmonary
� Continue DuoNebs as scheduled
�Azithromycin for inflammatory control ok for now
#Troponin elevation,
� Continue IV Lasix
� Management per cardiology for possible ischemic evaluation
� Daily aspirin
� 2D echo
� Follow cardiology recommendations
#Hyponatremia
� Mostly hypervolemic hyponatremia
Monitor with diuresis
#Hypertensive emergency
� Continue IV Lasix
� Added back Cardizem
Persistent atrial fibrillation
� Start back on Cardizem
Hypothyroidism
� Continue Synthroid
#Depression
� Continue Lexapro once okay to tolerate diet
Anticipated Discharge: 24 - 48 hours
Subjective/Interval History
-
Date of Service: October 27, 2023
SBT this am - extubated this afternoon
Objective Data
-
Labs:
Laboratory Results
10/27/23 10/27/23 10/27/23
03:19 03:19 10:36
WBC 11.9 H
Hgb 14.0
Hct 39.6
Plt Count 277 D
PT 14.6
INR 1.16
APTT Cancelled 90.2 H 64.2 H
HCO3 25.9 26.5
Sodium 133 L
Potassium 4.3
Chloride 97 L
Carbon Dioxide 25
BUN 14
Creatinine 0.5 L
Glucose 134 H
Calcium 10.1
Total Bilirubin 0.5
AST 82 H
ALT 69 H
Alkaline Phosphatase 102
10/27/23
16:15
WBC
Hgb
Hct
Plt Count
PT
INR
APTT Pending
HCO3
Sodium
Potassium
Chloride
Carbon Dioxide
BUN
Creatinine
Glucose
Calcium
Total Bilirubin
AST
ALT
Alkaline Phosphatase
Vital Signs:
Vital Signs
Temp Pulse Resp BP Pulse Ox
100.1 F 96 18 118/78 100
10/27/23 12:17 10/27/23 11:30 10/27/23 11:30 10/27/23 11:00 10/27/23 11:30
I&O
10/26/23 10/27/23 10/28/23
06:59 06:59 06:59
Intake Total 399.6 / 419.3 123.1 / 123.1
Output Total 774 / 774 105 / 105
Balance -374.4 / -354.7 18.1 / 18.1
Review of Systems
-
History Source: Patient
All other systems: Not reviewed unless documented
Data Reviewed
-
Diagnostic Radiology: Image personally visualized and interpreted and Report Reviewed by me
CT Scan: Image personally visualized and interpreted and Report Reviewed by me
Labs: Labs Reviewed by me
--- NOTE | 2023-10-27 13:51 | PTCARENOTE ---
Pt awake resting. Updated Dr. Mina. OK given to Bandar lion and amisha del cid. Purewick placed. Currently on 3l nc with sats of 94%. Diet ordered. Remains overall alert and oriented- just needs reminding of things at times.
--- NOTE | 2023-10-27 13:52 | PTCARENOTE ---
Goddard catheter removed as ordered. Coreen care given. Moist non-productive cough. Breath sounds diminished posteriorly. She was informed of the plan of care regarding the use of the purwick and coughing and deep breathing.
--- NOTE | 2023-10-27 14:25 | PTCARENOTE ---
Assumed care of patient from prior RN. PAtient is AAOx3, eating first meal since being extubated this morning. She is tremulous, does state she has essential tremor.denies any complaints of swallowing. 95% on 3L Nasal cannula, SInus rhythm on
monitor. in 80s. no edema noted. Heparin gtt infusing into left AC at 900 units/hr. Patient is ordered a regular diet. Goddard was discontinued at 1330. Due to void. Skin is intact, some scattered bruises on upper extremities. Patient is able
to make needs known, call reece in reach, bed alarm on.
[2023-10-27 17:35] LABS: APTT 60.6 Sec (23.4-35.0)
[2023-10-27 17:39] LABS: Glucose - Point of Care 141 mg/dl (70-99)
--- NOTE | 2023-10-27 21:38 | PTCARENOTE ---
Pt aaox3, forgetful, tremulous. Pt states 'I have always had these tremors. You should see my handwriting.' Pt brushed her teeth and washed her face at the bedside. Nsr on monitor. Heparin gtt infusing at 11ml/hr. Pt forgetful, asks the same
questions frequently. pox 96% on 2L NC, frequent moist NPC. Pt states 'I feel stuff coming up when I cough but it just goes back down.' Pt due to void. Bladder scanned for 145ml. Pt states 'I feel like I could go.' OOB to br x1 assist, unsteady
gait. C/o mild sob with activity, HR:110s. Pt voided small amount and had a bm. Pt back into bed without issues, states 'I feel tired after that but it was good.' Call reece within reach.
[2023-10-28] VITALS (17 sets, daily range): BP systolic 68–109; BP diastolic 49–73; PULSE 80–86; O2SAT 96; BMI 23.6
[2023-10-28 00:11] LABS: Glucose - Point of Care 147 mg/dl (70-99)
[2023-10-28] MEDS: HEPARIN 25000 UNITS/250 ML IV ×2 (00:36→21:27)
[2023-10-28] MEDS: ZITHROMAX INFUSION 250 IV (00:37)
[2023-10-28 00:38] LABS: APTT 94.4 Sec (23.4-35.0)
--- NOTE | 2023-10-28 02:30 | PTCARENOTE ---
Pt sleeping, appears comfortable. nsr on monitor. pox 97% on 2L NC. Heparin at 11ml/hr. Call reece within reach.
[2023-10-28 03:49] LABS: Hematocrit 37.3 % (37.0-47.0); Mean Corp Hgb Conc. 34.9 g/dL (33.0-37.0); Mean Corpuscular Volume 83.3 fL (81.0-99.0); Mean Platelet Volume 8.8 fL (7.4-10.4); Platelet Count 264 10^3/uL (130-400); Red Blood Cell Count 4.48 10^6/uL (4.20-5.40); White Blood Cell Count 18.5 10^3/uL (4.8-10.8)
[2023-10-28 04:27] LABS: ALT (SGPT) 44 U/L (0-35); AST (SGOT) 51 U/L (14-36); Alkaline Phosphatase 86 U/L (38-126); Blood Urea Nitrogen 21 mg/dl (7-17); Calcium 9.5 mg/dl (8.4-10.2); Carbon Dioxide 25 mmol/L (22-30); Chloride 95 mmol/L (98-107); Estimated Creatinine Clearance 75 ml/min; Glucose 115 mg/dl (70-99); Potassium 4.2 mmol/L (3.5-5.1); Sodium 126 mmol/L (135-145); Total Bilirubin 0.4 mg/dl (0.2-1.3); Total Protein 6.5 g/dl (6.3-8.2); eGFR > 60.00
[2023-10-28] MEDS: SYNTHROID 150 MCG PO (06:26)
[2023-10-28 06:45] LABS: Glucose - Point of Care 112 mg/dl (70-99)
[2023-10-28 06:57] LABS: APTT 95.4 Sec (23.4-35.0)
[2023-10-28] MEDS: DUONEB 3 ML INH ×4 (07:29→19:46)
[2023-10-28] MEDS: CARDIZEM CD 180 MG PO (07:44)
[2023-10-28] MEDS: NSS (PRESERVATIVE FREE) 10 ML IV (07:45)
[2023-10-28] MEDS: PROTONIX IV 40 MG IV (07:45)
[2023-10-28] MEDS: DECADRON 4 MG IV (07:45)
--- NOTE | 2023-10-28 09:49 | W.PN.CARDCBS ---
Addendum entered and electronically signed by Leslie Reyes MD 10/28/23 10:53:
Echocardiogram performed today reviewed with normal left ventricular chamber size. Normal left ventricular wall thickness. Moderately reduced left ventricular systolic function. Mid-distal, septal, inferior, anterior wall hypokinesis and Apical
akinesis. Left ventricular ejection fraction is 43 % by biplane Corley's method of discs.
Normal right ventricular size and function.
Mild mitral regurgitation.
Mild tricuspid regurgitation. Estimated pulmonary artery pressure 34 mmHg assuming a right atrial pressure of 8 mmHg.
We will continue to try to obtain records. Patient does not recall details of cardiac issues. Given segmental wall motion abnormality once stabilizes during hospital stay will need to discuss ischemic assessment such as cardiac catheterization if
patient a candidate at that time.
Original Note:
Today's Communication / Plan
-
Treat as non-Q wave myocardial infarction. Aspirin and statin (on statin as an outpatient) added.
Await echocardiogram
Will eventually need ischemic assessment invasive versus noninvasive pending course and echo.
QT interval quite increased on azithromycin. Avoid QT prolonging medications.
Reassess EKG in the morning.
Impression / Plan
-
Impression:
Acute hypercapnic/hypoxic respiratory failure
Acute congestive heart failure, unspecified
COPD exacerbation
Unremarkable CT chest, no evidence of PE
Left bundle branch block
Leukocytosis
Hyponatremia
Hyperglycemia
Elevated lactate
Mild acute transaminitis
Elevated [id number] wave myocardial infarction mechanism of her elevated troponin is likely due to demand ischemia and potentially acute congestive heart failure
Increased QT interval.
Recommendations:
Presented with acute hypoxemic respiratory failure and was intubated now extubated. Volume status appears stable. proBNP was never elevated. Left bundle branch block Present since at least 2020.
Patient is in chair. Denies chest discomfort. Patient follows at [facility] cardiology and pulmonary. Will try to obtain cardiology records. She does not know what she sees them for or her cardiac history.
Left bundle branch block now with T wave inversions. She denies new symptoms. Significantly increased QT interval noted.
Treat as non-Q wave myocardial infarction. Aspirin and statin (on statin as an outpatient) added.
Transaminitis noted and improving. Follow with the addition of statin
Await echocardiogram
Will need ischemic assessment invasive versus noninvasive pending course and echo.
QT interval quite increased on azithromycin. Discussed with skill labor and will be discontinued/changed. Reassess EKG in the morning.
Avoid QT prolonging medications.
Appreciate pulmonary critical care input managing COPD and intubation. Likely longstanding lung disease.
Can utilize diltiazem for rate control 180 mg p.o. daily once taking p.o.'s which is listed in her outpatient medications. No atrial arrhythmias on telemetry stable overnight. Suspect this is being used secondary to sinus tachycardia. May end up
discontinuing diltiazem given heart rate has not improved pending echo results.
I spent 30 minutes critical care time
Progress Note - Drink Waiter
Subjective
Date of Service: October 28, 2023
Denies chest discomfort cannot relate much of the history. Denies palpitations.
Objective
Labs:
10/28/23 03:22
10/28/23 03:22
Labs
Hgb 13.0 g/dL (12.0-16.0) 10/28/23 03:22
Hct 37.3 % (37.0-47.0) 10/28/23 03:22
Plt Count 264 10^3/uL (130-400) 10/28/23 03:22
PT 14.6 Sec (11.4-14.6) 10/27/23 03:19
INR 1.16 10/27/23 03:19
APTT 95.4 Sec (23.4-35.0) H 10/28/23 06:28
Sodium 126 mmol/L (135-145) L 10/28/23 03:22
Potassium 4.2 mmol/L (3.5-5.1) 10/28/23 03:22
BUN 21 mg/dl (7-17) H 10/28/23 03:22
Creatinine 0.6 mg/dL (0.6-1.0) 10/28/23 03:22
Glucose 115 mg/dl (70-99) H 10/28/23 03:22
Troponins
10/26/23 10/27/23 10/27/23
18:14 01:55 10:36
Troponin I 2.500 H* 2.610 H* 2.560 H*
Vital Signs and I&O:
Vital Signs
Temp Pulse Resp BP Pulse Ox
97.9 F 77 16 98/69 98
10/28/23 07:22 10/28/23 07:31 10/28/23 07:31 10/28/23 07:00 10/28/23 08:25
Vital Signs
Temp Pulse Resp BP Pulse Ox
97.9 F 77 16 98/69 98
10/28/23 07:22 10/28/23 07:31 10/28/23 07:31 10/28/23 07:00 10/28/23 08:25
Intake & Output
10/26/23 10/27/23 10/28/23 10/29/23
06:59 06:59 06:59 06:59
Intake Total 399.6 / 419.3 1512.1 / 1523.1 513 / 513
Output Total 774 / 774 285 / 285
Balance -374.4 / -354.7 1227.1 / 1238.1 513 / 513
Physical Exam
Physical Exam
General: Tremulous frail womaNeck: Supple, no JVD, HJR, carotids +2 B/L, no bruits bilaterally.
Heart: Distant heart sounds regular,
Lungs: Increased expiratory phase wheezy
Extremities: No clubbing, cyanosis or edema bilaterally.
Neuro: Grossly nonfocal, awake, alert and oriented x3.
--- NOTE | 2023-10-28 09:50 | CARDSERVLU ---
Echocardiogram with Lumason completed after protocol screening completed. Allergies verified.
Patent IV site: _rt FA____
IV site flushed with 0.9% NaCl pre and post administration.
Diluted bolus method utilized to enhance visualization of ventricular gamez.
Total volume given: __1.0__ mL
Patient tolerated all procedures well without complications.
[2023-10-28 10:35] LABS: Magnesium 1.9 mg/dl (1.6-2.3)
--- NOTE | 2023-10-28 11:11 | PTCARENOTE ---
Pt received in bed @ 0700. AAOx3 but forgetful. Essential tremors. Pt states that they are her baseline. Assisted OOB X1 to chair for breakfast. SaO2 98% on 2L NC. Expiratory wheeze throughout. Pt states she is 1/2 PPD smoker. Harsh nonproductive
cough. Sinus rhythm on quality assurance monitor chassis with prolonged QT. Trace LE edema. Palpable pulses. Pt with ECHO completed in room. Bowel movement last night. Continent of urine. (L) AC with Heparin gtt infusing @ 1100 units/hr. PTT therapeutic, next PTT
draw in AM. (R) AC #20 flushed and capped. Pt downgraded to telemetry. Report given to Mary ZELAYA on and pt transferred from ICU.
--- NOTE | 2023-10-28 11:30 | W.PN.INTV ---
Documented by User: Darryl Vu MD, Resident 10/28/23 13:06
Today's Communication / Plan
Recommendations
Patient extubated to 2 L nasal cannula and tolerating.
Stop Zithromax due to QT prolongation, start doxycycline p.o. for 5 days for leukocytosis.
Start prednisolone 40 mg for 5 days
Patient downgraded to floor on telemetry.
Assessment
-
77-year-old female with history of suspected COPD, former smoker per records, presented with shortness of breath for 4 days. Patient was given aspirin nitroglycerin in the field and nebulized therapy due to significant wheezing. Upon arrival,
given IV Lasix. Patient had developed increased lethargy, hypercapnia, required intubation in the ED. We are asked to help from critical care standpoint
Acute hypercapnic/hypoxic respiratory failure
Intubated 10/26/23
Extubated 10/27/23 to 2 L nasal cannula
Suspected pulm edema, diffuse wheezing
Unremarkable CT chest, no evidence of PE
Elevated troponin with left bundle branch block, tachycardia
Leukocytosis
Hyponatremia
Hyperglycemia
Elevated lactate
Mild acute transaminitis
Elevated troponin
Assessment and plan
Acute hypercapnic/hypoxic respiratory failure
Intubated 10/26/23 in ER
Extubated 10/27/23 to 2 L nasal cannula in ICU.
-Chest x-ray 10/26/2023 with mild interstitial edema, repeat chest x-ray 10/27/2023 which resolved pulmonary edema and no acute mediastinal or cardiopulmonary abnormalities.
-Chest CT 10/26/2023 with no cardiopulmonary disease or pulmonary embolism.
-Echocardiogram 10/28/2023 unremarkable.
-Hypercapnia probably due to COPD exacerbation vs pulmonary edema.
-Continue DuoNebs as scheduled.
-Starts prednisolone taper 40 mg for 5 days
-Stop azithromycin due to QT prolongation.
-Start doxycycline p.o. for 5 days.
-Continue IV Lasix per cardiology.
Elevated troponin with left bundle branch block, tachycardia
-Echocardiogram 10/28/2023 unremarkable with EF 43%.
-Suspects NSTEMI although echocardiogram unremarkable. Patient may need cardiac catheterization moving forward for ischemic assessment per cardiology.
-Continue heparin.
-Stop azithromycin given QT prolongation.
-Continue IV Lasix.
-Continue aspirin and atorvastatin.
-Cardiology following
Leukocytosis.
-Patient with worsening white counts currently 18.5 however he is afebrile.
-Blood cxs 10-25 NTD
-Chest CT unremarkable for infiltrates.
-Discontinue azithromycin due to QT prolongation and starts doxycycline p.o. for 5 days.
-Monitor white count.
Hyponatremia.
-Most likely due to hypervolemia.
-Continue IV Lasix
-Monitor sodium levels while on diuresis.
DVT prophylaxis: Remains on heparin drip
GI prophylaxis: On pantoprazole
Pulmonology will continue to follow.
Subjective Dataa
Subjective Data
Date of Service:
Date of Service: October 28, 2023
Chief Complaint: Tray Server Follow Up
Subjective:
Patient is a 77-year-old female with history of COPD, A-fib, and active tobacco use who presented to the ED 10/26/2023 with shortness of breath for 4 days. Workup in the ED including troponin and EKG were consistent with STEMI and a left bundle
branch block. Patient was treated with aspirin, heparin, nitroglycerin IV steroids and nebulizer therapy. She was subsequently intubated due to respiratory distress and admitted to ICU for further management. She was extubated to nasal cannula on
10/27/2023 and is tolerating. Patient is seen this morning awake, alert and oriented x 3 but forgetful, with mild essential tremor. SaO2 98% on 2 L nasal cannula, expiratory wheezes and nonproductive cough, in no acute respiratory distress.Patient
denies headache, shortness of breath, chest pain, trouble swallowing, palpitations, or abdominal pains. Patient has been transferred to the floor.
Objective Data
Data Reviewed
Vital Signs / I&O / Oxygen:
Vital Signs
Temp Pulse Resp BP Pulse Ox
97.5 F 84 17 96/70 94
10/28/23 11:03 10/28/23 11:03 10/28/23 11:03 10/28/23 11:03 10/28/23 11:03
Intake and Output
10/27/23 10/28/23 10/29/23
06:59 06:59 06:59
Intake Total 399.6 / 419.3 1512.1 / 1523.1 51 / 513
Output Total 774 / 774 285 / 285
Balance -374.4 / -354.7 1227.1 / 1238.1 51 / 513
SaO2 [CPAP/PSV] 98
SaO2 [A/C] 99
SaO2 94
Nasal Cannula flow liters per 2
minute
Physical Exam
HEENT: Normocephalic
Cardiovascular: S1-S2, Murmur (n), Rub (n) and Other (Tachycardia)
Respiratory: Wheeze (Expiratory wheezing)
GI: Soft, Non Distended and Normal Bowel Sounds
Neurology: Awake, Oriented and Other (Mildly forgetful)
Labs/Micro/Reports
Lab Data
10/28/23 03:22
10/28/23 03:22
Laboratory Results
10/27/23 10/27/23 10/27/23
14:00 17:17 23:58
APTT Cancelled 60.6 H 94.4 H
10/28/23
06:28
APTT 95.4 H
Microbiology
10/26/23 21:33 Blood/Venous Blood Culture - Preliminary
No Growth in 24 hours- Final report to follow
10/26/23 21:33 Blood/Venous Blood Culture - Preliminary
No Growth in 24 hours- Final report to follow
10/26/23 19:44 Nasal Swab Influenza Types A & B (TRISTAN) - Final
Negative for Influenza A & B, NAAT
Negative results must be combined with clinical observations
and patient history.
Nucleic Acid Amplification test (NAAT)performed on the
[employer] platform.

Documented by User: Joseph Cruz MD 10/28/23 16:42
Today's Communication / Plan
Recommendations
Patient extubated 10-26 to 2 L nasal cannula and tolerating.
Stop Zithromax due to QT prolongation, start doxycycline
Start prednisone 40 mg qd
Patient downgraded to floor on telemetry.
Assessment
-
77-year-old female with history of suspected COPD, former smoker per records, presented with shortness of breath for 4 days. Patient was given aspirin nitroglycerin in the field and nebulized therapy due to significant wheezing. Upon arrival,
given IV Lasix. Patient had developed increased lethargy, hypercapnia, required intubation in the ED. We are asked to help from critical care standpoint
Acute hypercapnic/hypoxic respiratory failure
Intubated 10/26/23
Extubated 10/27/23 to 2 L nasal cannula
Suspected pulm edema, diffuse wheezing
Unremarkable CT chest, no evidence of PE
Elevated troponin with left bundle branch block, tachycardia
Leukocytosis
Hyponatremia
Hyperglycemia
Elevated lactate
Mild acute transaminitis
Elevated troponin
Assessment and plan
Acute hypercapnic/hypoxic respiratory failure
Intubated 10/26/23 in ER
Extubated 10/27/23 to 2 L nasal cannula in ICU.
-Chest x-ray 10/26/2023 with mild interstitial edema, repeat chest x-ray 10/27/2023 which resolved pulmonary edema and no acute mediastinal or cardiopulmonary abnormalities.
-Chest CT 10/26/2023 with no cardiopulmonary disease or pulmonary embolism.
-Echocardiogram 10/28/2023 unremarkable.
-Hypercapnia probably due to COPD exacerbation vs pulmonary edema.
-Continue DuoNebs as scheduled.
-Start prednisone taper 40 mg, to complete 5 days of systemic CS
-Stop azithromycin due to QT prolongation.
-Start doxycycline 100 mg p.o. qd, to complete 5 day of atb regimen
-Continue IV Lasix per cardiology.
Elevated troponin with left bundle branch block, tachycardia
-Echocardiogram 10/28/2023: remarkable for EF 43% with WMAs
-Suspects NSTEMI although echocardiogram unremarkable. Patient may need cardiac catheterization moving forward for ischemic assessment per cardiology.
-Continue heparin.
-Stop azithromycin given QT prolongation.
-Continue IV Lasix.
-Continue aspirin and atorvastatin.
-Cardiology following, considering ischemic w/u
Leukocytosis.
-Patient with worsening white counts currently 18.5, likely due to systemic CS. Afebrile.
-Blood cxs 10-25 NTD
-Chest CT unremarkable for infiltrates.
-Discontinue azithromycin due to QT prolongation and starts doxycycline p.o. for 5 days.
-Monitor white count.
Hyponatremia.
-Most likely due to hypervolemia.
-Continue IV Lasix
-Monitor sodium levels while on diuresis.
DVT prophylaxis: Remains on heparin drip
GI prophylaxis: On pantoprazole
Stable for transfer to telemetry today
Pulmonology will continue to follow
No critical care time today
ATTENDING PHYSICIAN ATTESTATION:
(Follow-up Visit:)
I personally saw and evaluated the patient along with the Resident Dr Vu.
Discussed with Resident and discussed in rounds with MDT.
I agree with Resident�s findings and plan as documented in the resident�s note, which was edited by myself.
Subjective Dataa
Review of Systems
Cardiopulmonary: Dyspnea and Cough
Neuro: Weakness
Objective Data
Physical Exam
HEENT: Moist Mucous Membranes and Thrush (n)
Cardiovascular: JVD (n), Peripheral Edema (n) and Calf Tenderness (n)
Respiratory: Accessory Resp Muscle Use (n) and Stridor (n)
GI: Non Tender
Neurology: No Motor Deficits
Skin: Warm
--- NOTE | 2023-10-28 11:35 | W.PN.PUL3 ---
Assessment
-
77-year-old female with history of suspected COPD, former smoker per records, presented with shortness of breath for 4 days. Patient was given aspirin nitroglycerin in the field and nebulized therapy due to significant wheezing. Upon arrival,
given IV Lasix. Patient had developed increased lethargy, hypercapnia, required intubation in the ED. We are asked to help from critical care standpoint
Acute hypercapnic/hypoxic respiratory failure likely due to acute COPD exacerbation in setting of acute HFmrEF
Intubated 10/25--> extubated 10/27/2023
Suspected pulm edema, diffuse wheezing
Acute HFmrEF
Left bundle branch block, tachycardia
Leukocytosis
Hyponatremia
Hyperglycemia
Elevated lactate
Mild acute transaminitis
Elevated troponin due to ACS (NSTEMI)
Plan/recommendations
Given initial presentation and discussion with cardiology, suspect coronary disease, heart failure
Wheezing likely pulmonary edema
Given rapidity of developing hypercapnia, likely component of COPD in setting of ADHF
Continue steroids with decadron 4mg IV q12hr and wean as tolerated
Nebulized therapy
Presently on azithromycin which is adequate. CT chest without acute infiltrate
Remains on heparin for NSTEMI (trop peaked at 2.610 on 10/27/2023)
Received aspirin MARITIME GUARD
Initial EKG with bundle branch block
Cardiology following and recommendations appreciated
Continue DuoNebs QID (on Anoro at home, reportedly)
DVT prophylaxis: heparin drip
GI prophylaxis: On pantoprazole
Pulmonary service will continue to follow.
Data:
TTE 10-28-2023:
Normal left ventricular chamber size. Normal left ventricular wall thickness.
Moderately reduced left ventricular systolic function. Mid-distal, septal,
inferior, anterior wall hypokinesis and Apical akinesis. Left ventricular
ejection fraction is 43 % by biplane Corley's method of discs. Normal
diastolic function.
Normal right ventricular size and function.
Thickened mitral valve leaflets. Mitral annular calcification. Mitral valve
opens normally. Mild mitral regurgitation.
Thickened trileaflet aortic valve. The aortic valve is structurally and
functionally normal.
Structurally normal tricuspid valve. Tricuspid valve opens normally. Mild
tricuspid regurgitation. Estimated pulmonary artery pressure 34 mmHg assuming
a right atrial pressure of 8 mmHg.
Subjective Data
-
Date of Service:
Date of Service: October 28, 2023
Objective Data
Data Reviewed
Vital Signs / I&O / Oxygen:
Vital Signs
Temp Pulse Resp BP Pulse Ox
97.5 F 84 17 96/70 94
10/28/23 11:03 10/28/23 11:03 10/28/23 11:03 10/28/23 11:03 10/28/23 11:03
Intake and Output
10/27/23 10/28/23 10/29/23
06:59 06:59 06:59
Intake Total 399.6 / 419.3 1512.1 / 1523.1 513 / 513
Output Total 774 / 774 285 / 285
Balance -374.4 / -354.7 1227.1 / 1238.1 513 / 513
SaO2 [CPAP/PSV] 98
SaO2 [A/C] 99
SaO2 94
Nasal Cannula flow liters per 2
minute
Labs/Micro/Reports
Lab Data
10/28/23 03:22
10/28/23 03:22
Laboratory Results
10/27/23 10/27/23 10/27/23
14:00 17:17 23:58
APTT Cancelled 60.6 H 94.4 H
10/28/23
06:28
APTT 95.4 H
Microbiology
10/26/23 21:33 Blood/Venous Blood Culture - Preliminary
No Growth in 24 hours- Final report to follow
10/26/23 21:33 Blood/Venous Blood Culture - Preliminary
No Growth in 24 hours- Final report to follow
10/26/23 19:44 Nasal Swab Influenza Types A & B (TRISTAN) - Final
Negative for Influenza A & B, NAAT
Negative results must be combined with clinical observations
and patient history.
Nucleic Acid Amplification test (NAAT)performed on the
[employer] platform.
[2023-10-28] MEDS: ASPIR LOW (ENTERIC COATED) 81 MG PO (11:45)
[2023-10-28 11:49] LABS: Glucose - Point of Care 111 mg/dl (70-99)
--- NOTE | 2023-10-28 15:03 | W.PN.HOSP.TC ---
Today's Communication/Plan
-
Azithromycin changed to doxycycline
Transition to oral prednisone
Wean off oxygen as possible
Heparin drip/ischemic evaluation per cardiology
Assessment / Plan
Assessment / Plan
Acute hypoxic and hypercapnic respite failure
Vent dependent resp failure - extubated on 10/26
-Currently extubated on oxygen through nasal cannula.
COPD flare up
-Follows up with pulmonology on outpatient basis
-CT chest 10/25 showing no active cardiopulmonary disease/no PE.
-Was on IV steroid, transition to oral prednisone 40 mg daily
-Azithromycin changed to doxycycline due to QTc prolongation
Troponin elevation
-No reported chest pain overnight
-Cardiology to plan for possible ischemic evaluation.
-TTE showed EF 43% and mid distal/septal/inferior/anterior wall hypokinesis and apical akinesis
-currently on heparin drip
Hyponatremia
-Urine Na of 99 and Uosm 337
-Suspected euvolemic hyponatremia
-maintain on fluid restriction
-hold SSRI
Hypertensive emergency
-back on Cardizem
Persistent atrial fibrillation
� Start back on Cardizem
Hypothyroidism
� Continue Synthroid
Depression
-hold escitalopram with hyponatremia
DVT PPX - heparin drip
Full code
Transfer to telemetry
Anticipated Discharge: 24 - 48 hours
Subjective/Interval History
-
Date of Service: October 28, 2023
Resting comfortably in chair
On oxygen through nasal cannula 2L/m
Objective Data
-
Labs:
Laboratory Results
10/28/23 10/28/23
03:22 06:28
WBC 18.5 H
Hgb 13.0
Hct 37.3
Plt Count 264
APTT 95.4 H
Sodium 126 L
Potassium 4.2
Chloride 95 L
Carbon Dioxide 25
BUN 21 H
Creatinine 0.6
Glucose 115 H
Calcium 9.5
Total Bilirubin 0.4
AST 51 H
ALT 44 H
Alkaline Phosphatase 86
Vital Signs:
Vital Signs
Temp Pulse Resp BP Pulse Ox
97.5 F 78 16 96/70 98
10/28/23 11:03 10/28/23 11:54 10/28/23 11:54 10/28/23 11:03 10/28/23 11:54
I&O
10/27/23 10/28/23 10/29/23
06:59 06:59 06:59
Intake Total 399.6 / 419.3 1512.1 / 1523.1 513 / 513
Output Total 774 / 774 285 / 285
Balance -374.4 / -354.7 1227.1 / 1238.1 51 / 513
Review of Systems
-
Respiratory: Denies Cough or Trouble Breathing
Cardiac: Reports No Symptoms
Abdomen/GI: Reports No Symptoms
Physical Exam
-
General: Comfortable and Cachectic
HEENT: Oxygen (2 L NC)
Respiratory: Clear to Auscultation
Cardiac: Regular Rhythm and S1/S2; Negative Murmur or Rub
GI: Soft, Nontender and Nondistended
Musculoskeletal: No Edema
Neuro: Awake, Alert, Oriented, No Motor Deficits and Nonfocal/Grossly Intact
Psych: Calm
--- NOTE | 2023-10-28 16:23 | CM ---
Patient seen doing breathing treatment, CM reviewed chart. Per PT note, patient resides alone in a first floor condo at the [place], patient drives and is independent with ADLS and IADLS, denies DME. Pharmacy documented [facility]. Per PT
evaluations, recommendation home health vs no PT need. CM will continue to follow for discharge planning needs.
Plan; home with VN vs no needs.
[2023-10-28 17:58] LABS: Glucose - Point of Care 160 mg/dl (70-99)
[2023-10-28] MEDS: LIPITOR 40 MG PO (18:45)
[2023-10-28] MEDS: NOVOLOG FLEXPEN-LOW RESISTANCE 1 UNITS SC (18:45)
[2023-10-28 21:54] LABS: Glucose - Point of Care 129 mg/dl (70-99)
[2023-10-29] VITALS (7 sets, daily range): BP systolic 103–130; BP diastolic 56–70
[2023-10-29] MEDS: NITROSTAT (SUBLINGUAL) 0.400000000000000022 MG SL (03:22)
--- NOTE | 2023-10-29 03:29 | PTCARENOTE ---
Pt complained of shortness of breathe and chest tightness. Pt tremulous. ECG and vital signs obtained. LIFE INSURANCE SALES AGENT made aware, new orders provided, see SEP, dose nitro provided. LIFE INSURANCE SALES AGENT at bedside. Will reassess BP. CXR and labs ordered.
--- NOTE | 2023-10-29 03:30 | PTCARENOTE ---
2L O2 placed. Respiratory tiger texted to administer treatment.
--- NOTE | 2023-10-29 03:40 | W.PN.UPDATE ---
Update Note
Progress Note Update
-Patient complained of chest pain, at the sternum area rated 10/10 of pain scale, non radiating, associated with SOB. BP 130/70, hr in 130s, spo2 96% RA. Diminished lung sounds on exam.
-Patient was placed on 2 L of o2, Ekg, Stat labs (cbc, bmp, trop, mag, BNP), and chest x-ray. Nitroglycerin SL given and was effective after one dose. breathing treatment was provided.
After treatment was provided patient was comfortably in bed and mentioned that her chest pain relieved and SOB improved.
[2023-10-29] MEDS: XOPENEX 0.63 MG INHALANT SOLUTION 0.630000000000000004 MG INH (03:42)
[2023-10-29 04:07] LABS: % Basophils 0.2 % (0-2); % Eosinophils 1.3 % (0-6); % Immature Granulocytes 0.6 % (0-0.5); % Lymphocytes 21.2 % (20.5-51.1); % Monocytes 7.5 % (1.7-9.3); % Neutrophils 69.2 % (42.2-75.2); Absolute Eosinophils 0.1 10^3/uL (0-0.7); Absolute Immature Granulocytes 0.1 10^3/uL (0-0.05); Absolute Lymphocytes 2.4 10^3/uL (1.2-3.4); Absolute Monocytes 0.8 10^3/uL (0.1-0.6); Absolute Neutrophils 7.7 10^3/uL (1.4-6.5); Hematocrit 34.5 % (37.0-47.0); Hemoglobin 12.3 g/dL (12.0-16.0); Mean Corp Hgb Conc. 35.7 g/dL (33.0-37.0); Mean Corpuscular Hgb 29.4 pg (27.0-31.0); Mean Corpuscular Volume 82.3 fL (81.0-99.0); Mean Platelet Volume 8.9 fL (7.4-10.4); Nucleated Red Blood Cells % 0 %; Platelet Count 242 10^3/uL (130-400); Red Blood Cell Count 4.19 10^6/uL (4.20-5.40); Red Cell Dist. Width 13.1 % (11.5-14.5); White Blood Cell Count 11.2 10^3/uL (4.8-10.8)
[2023-10-29 04:32] LABS: NT-proBNP 4650 pg/ml; Troponin I 0.721 ng/ml
--- NOTE | 2023-10-29 04:34 | PTCARENOTE ---
Trop result=0.721. Pt resting comfortably in bed. VEHICLE CALIBRATION ENGINEER made aware. Will continue to monitor.
[2023-10-29 04:42] LABS: ALT (SGPT) 36 U/L (0-35); AST (SGOT) 37 U/L (14-36); Albumin 3.7 g/dl (3.5-5.0); Alkaline Phosphatase 76 U/L (38-126); Blood Urea Nitrogen 16 mg/dl (7-17); Calcium 9.7 mg/dl (8.4-10.2); Carbon Dioxide 27 mmol/L (22-30); Chloride 100 mmol/L (98-107); Estimated Creatinine Clearance 75 ml/min; Glucose 96 mg/dl (70-99); Magnesium 2.2 mg/dl (1.6-2.3); Sodium 131 mmol/L (135-145); Total Bilirubin 0.4 mg/dl (0.2-1.3); Total Protein 6.2 g/dl (6.3-8.2); eGFR > 60.00
[2023-10-29] MEDS: SYNTHROID 150 MCG PO (05:15)
[2023-10-29 06:41] LABS: % Basophils 0.1 % (0-2); % Immature Granulocytes 0.6 % (0-0.5); % Lymphocytes 20.2 % (20.5-51.1); % Monocytes 8.7 % (1.7-9.3); % Neutrophils 68.4 % (42.2-75.2); Absolute Eosinophils 0.2 10^3/uL (0-0.7); Absolute Immature Granulocytes 0.1 10^3/uL (0-0.05); Absolute Lymphocytes 2.1 10^3/uL (1.2-3.4); Absolute Monocytes 0.9 10^3/uL (0.1-0.6); Absolute Neutrophils 7.1 10^3/uL (1.4-6.5); Hematocrit 35.3 % (37.0-47.0); Mean Corpuscular Hgb 29.1 pg (27.0-31.0); Mean Corpuscular Volume 85.7 fL (81.0-99.0); Mean Platelet Volume 8.7 fL (7.4-10.4); Nucleated Red Blood Cells % 0 %; Platelet Count 216 10^3/uL (130-400); Red Blood Cell Count 4.12 10^6/uL (4.20-5.40); White Blood Cell Count 10.4 10^3/uL (4.8-10.8)
[2023-10-29] MEDS: DUONEB 3 ML INH (07:20)
[2023-10-29 07:50] LABS: Glucose - Point of Care 110 mg/dl (70-99)
[2023-10-29] MEDS: VIBRAMYCIN 100 MG PO (08:15)
[2023-10-29] MEDS: PROTONIX 40 MG PO (08:15)
[2023-10-29] MEDS: DELTASONE 40 MG PO (08:15)
[2023-10-29] MEDS: ASPIR LOW (ENTERIC COATED) 81 MG PO (08:15)
[2023-10-29] MEDS: NOVOLOG FLEXPEN-LOW RESISTANCE SC ×2 (08:19→11:53)
[2023-10-29] MEDS: CARDIZEM CD PO (08:50)
--- NOTE | 2023-10-29 09:08 | W.PN.PUL3 ---
Addendum entered and electronically signed by Naren Hewitt MD 10/29/23 18:05:
Of note, she says she follows with a bean picker at [facility] (?Dr. Nelson). She will follow-up with her once she is discharged. She is more than welcome to see us at [facility] post discharge if she wishes. Of note, she is a former
smoker of 0.5 PPD X 50 years. This qualifies her for LDCT chest imaging for lung cancer screening purposes. This should be discussed with her as an outpatient. Also considering she is on 2 L/min she should obtain a walking pulse ox prior to
discharge.
Original Note:
Today's Communication / Plan
-
NPO for [facility] tomorrow AM
Step up inhaler therapy by starting pulmicort
Start mucolytics with mucinex and start flutter valve
IS ordered and encouraged
Replete K>4, Mg>2
Trend WBC
5 days prednisone + doxy
Pulmonary will continue to follow.
Assessment
-
77-year-old female with history of suspected COPD, former smoker per records, presented with shortness of breath for 4 days. Patient was given aspirin nitroglycerin in the field and nebulized therapy due to significant wheezing. Upon arrival,
given IV Lasix. Patient had developed increased lethargy, hypercapnia, required intubation in the ED. We were asked to help from critical care standpoint. Patient now extubated, downgraded to floor and pulmonary is continuing to follow.
Impression:
Acute hypercapnic/hypoxic respiratory failure due to AECOPD in setting of ADHF w/ ACS
Intubated 10/26/23 + extubated 10/27/23 to 2 L nasal cannula
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
Centrilobular emphysema/?COPD (no PFTs on file) with mucoid impaction seen in smaller airways/bronchioles
Left bundle branch block
Leukocytosis - resolved
Hyponatremia - improved
Hyperglycemia - resolved
Elevated lactate - normalized
Mild acute transaminitis - improving
Elevated troponin due to ACS (NSTEMI) - troponin peaked at 2.61 on 10/27/2023
Assessment and plan
Acute hypercapnic/hypoxic respiratory failure
Intubated 10/26/23 in ER
Extubated 10/27/23 to 2 L nasal cannula in ICU.
-Chest x-ray 10/26/2023 with mild interstitial edema, repeat chest x-ray 10/27/2023 which resolved pulmonary edema and no acute mediastinal or cardiopulmonary abnormalities.
-Chest CT 10/26/2023 with no cardiopulmonary disease or pulmonary embolism.
-Echocardiogram 10/28/2023 unremarkable.
-Hypercapnia probably due to COPD exacerbation vs pulmonary edema
-TRX from Decadron to PO prednisone today --> continue 40 mg for 5 days
-Takes Anoro at home --> will start Spiriva and Striverdi
- She still feels SOB, albeit not currently wheezing --> I will add pulmicort to her regimen and she should be DC'd home on triple inhaler therapy (i.e., Breztri vs Trelegy).
- Start mucolytics with Mucinex, and will start flutter valve
-Azithromycin was stopped due to QT prolongation (552ms today)
-Doxycycline started for 5 days.
-Diuresis as per cardiology
Elevated troponin with left bundle branch block, tachycardia
-Echocardiogram 10/28/2023 unremarkable with EF 43%.
-Suspected NSTEMI although echocardiogram unremarkable. Patient awaiting [facility] tomorrow --> NPO p MN
-Continue heparin gtt in meantime
-azithromycin DC'd given QT prolongation.
-Continue aspirin and high intensity statin with atorvastatin 40mg qPM
-Cardiology following
Leukocytosis.
-WBC now normal
-Blood cxs 10-25 NTD
-Chest CT unremarkable for infiltrates.
-azithromycin DC'd due to QT prolongation and starts doxycycline p.o. for 5 days.
-Trend white count
Hyponatremia.
-Most likely due to hypervolemia.
- IV lasix now DC'd
-trend sNa levels
DVT prophylaxis: Heparin drip
GI prophylaxis: On pantoprazole 40mg PO daily
Incentive spirometer discussed with the patient and she is amenable to using
Pulmonary service will continue to follow along.
Total time spent today was 35 minutes for this encounter. Time includes reviewing laboratory test/imaging results, reviewing pertinent medical records, obtaining and reviewing medical history, performing an appropriate exam, ordering medications,
tests and procedures. Time also includes documentation of this encounter, coordinating patient care and communicating with other healthcare professionals. Total time does not include separately billed tests performed on this date of service.
Data:
CXR 10-29-2023: No acute cardiopulmonary process.
TTE 10-28-2023:
Normal left ventricular chamber size. Normal left ventricular wall thickness.
Moderately reduced left ventricular systolic function. Mid-distal, septal,
inferior, anterior wall hypokinesis and Apical akinesis. Left ventricular
ejection fraction is 43 % by biplane Corley's method of discs. Normal
diastolic function.
Normal right ventricular size and function.
Thickened mitral valve leaflets. Mitral annular calcification. Mitral valve
opens normally. Mild mitral regurgitation.
Thickened trileaflet aortic valve. The aortic valve is structurally and
functionally normal.
Structurally normal tricuspid valve. Tricuspid valve opens normally. Mild
tricuspid regurgitation. Estimated pulmonary artery pressure 34 mmHg assuming
a right atrial pressure of 8 mmHg.
Subjective Data
-
Date of Service:
Date of Service: October 29, 2023
Chief Complaint: Pulmonary Follow Up
Subjective:
Pt seen this morning. Sitting in bed in NAD on 2L/min NC. Still endorsing SOB, donovan with movement. Has phlegm in chest that she says is worse. No chest pain currently. [facility] pending for tomorrow. She denies FERNANDEZ, abd pain, N/V/f/c.
Review of Systems
General: Other (Negative less mentioned above)
Objective Data
Data Reviewed
Vital Signs / I&O / Oxygen:
Vital Signs
Temp Pulse Resp BP Pulse Ox
97.8 F 78 16 103/65 95
10/29/23 07:00 10/29/23 08:50 10/29/23 07:25 10/29/23 08:50 10/29/23 07:25
Intake and Output
10/28/23 10/29/23 10/30/23
06:59 06:59 06:59
Intake Total 1512.1 / 1523.1 1472
Output Total 285 / 285
Balance 1227.1 / 1238.1 1472
SaO2 [CPAP/PSV] 98
SaO2 [A/C] 99
SaO2 95
Nasal Cannula flow liters per 2
minute
Physical Exam
General: Comfortable and Chills (negative)
HEENT: Normocephalic and Anicteric
Cardiovascular: S1-S2, Peripheral Edema (negative) and Other (distant heart sounds)
Respiratory: Wheeze (negative), Crackles (bilaterally), Rhonchi (negative) and Accessory Resp Muscle Use (negative)
GI: Soft, Non Distended, Non Tender and Normal Bowel Sounds
Neurology: AO x 3
Skin: Warm and Dry
Labs/Micro/Reports
Lab Data
10/29/23 06:26
10/29/23 06:00
Laboratory Results
10/29/23
06:26
APTT 83.0 H
Microbiology
10/26/23 21:33 Blood/Venous Blood Culture - Preliminary
No Growth in 48 hours- Final report to follow
10/26/23 21:33 Blood/Venous Blood Culture - Preliminary
No Growth in 48 hours- Final report to follow
10/26/23 19:44 Nasal Swab Influenza Types A & B (TRISTAN) - Final
Negative for Influenza A & B, NAAT
Negative results must be combined with clinical observations
and patient history.
Nucleic Acid Amplification test (NAAT)performed on the
[employer] platform.
--- NOTE | 2023-10-29 10:13 | W.PN.CARDCBS ---
Addendum entered and electronically signed by Cheryl Calloway PA-C 10/29/23 16:31:
Called patient's daughter and left a message asking for a call back.
Original Note:
Today's Communication / Plan
-
Cardiac catheterization tomorrow pending discussion with her daughter.
Continue heparin, aspirin and statin.
Pending catheterization consider SGLT2 inhibitor
Discontinue diltiazem in the setting of heart failure with mildly reduced EF
Impression / Plan
-
Impression:
Acute hypercapnic/hypoxic respiratory failure
Acute congestive heart failure, heart failure with mildly reduced ejection fraction.
Elevated kebqlvsk-[id number]-O wave myocardial infarction
COPD exacerbation
Unremarkable CT chest, no evidence of PE
Left bundle branch block
Leukocytosis
Hyponatremia
Hyperglycemia
Elevated lactate
Mild acute transaminitis
Increased QT interval.
Memory loss
Echocardiogram 10/28/2023: Normal LV size. Normal RV. Mid-distal, septal, inferior, anterior wall hypokinesis and Apical akinesis. LVEF is 43 %. Mild mitral regurgitation. Mild tricuspid regurgitation. Estimated pulmonary artery pressure 34
mmHg assuming a right atrial pressure of 8 mmHg.
Recommendations:
She presented with acute hypoxemic respiratory failure and was intubated now extubated. Volume status appears stable. proBNP was never elevated. Left bundle branch block Present since at least 2020.
Episode of chest discomfort last night. Was treated like it was cardiac in nature with improvement. Patient could not give a clear history of the chest pain incident but talked about coughing up phlegm.
Has been unable to obtain records from [facility] and she is still not sure who her doctor is. She seems to have some degree of memory difficulty. She however was able to have a conversation regarding likelihood of coronary artery
disease as the etiology of symptoms given positive troponin and wall motion abnormality with mildly reduced ejection fraction by echo. Currently she is without symptoms.
Plan at this time:
Treat as non-Q wave myocardial infarction. Aspirin and statin (on statin as an outpatient) added.
Continue IV heparin
EKG remains abnormal with T wave inversions
Telemetry stable.
We discussed the risks and benefits of proceeding with cardiac catheterization along with potential outcomes. She is agreeable to proceed. We will contact her daughter Dary Carpenter who she identifies as her power of filling machine operator. Her daughter is
currently in [place] [phone]. She also has a son who she identifies as power of filling machine operator in addition who lives in [place].
Heart failure with mildly reduced ejection fraction. Volume status likely euvolemic. Follow. Could consider SGLT2 inhibitor in the future. Await cardiac catheterization.
Transaminitis noted and improving. Follow with the addition of statin
QT interval quite increased on azithromycin which has been discontinued in favor of doxycycline. EKG still abnormal with long QT but improving.
Avoid QT prolonging medications.
Appreciate pulmonary critical care input managing COPD and intubation during this hospital stay. Likely longstanding lung disease.
Previously she had been on diltiazem for rate control of sinus tachycardia, 180 mg p.o. This was also listed in her outpatient medications. No atrial arrhythmias on telemetry stable overnight.
Given mildly reduced left ventricular ejection fraction will discontinue.
Progress Note - Retread Builder
Subjective
Date of Service: October 29, 2023
No chest pain currently. Episode overnight for which she cannot give clear description.
Objective
Labs:
10/29/23 06:26
10/29/23 06:00
Labs
Hgb 12.0 g/dL (12.0-16.0) 10/29/23 06:26
Hct 35.3 % (37.0-47.0) L 10/29/23 06:26
Plt Count 216 10^3/uL (130-400) 10/29/23 06:26
PT 14.6 Sec (11.4-14.6) 10/27/23 03:19
INR 1.16 10/27/23 03:19
APTT 83.0 Sec (23.4-35.0) H 04/16/24 06:26
Sodium Cancelled 10/29/23 06:00
Potassium Cancelled 10/29/23 06:00
BUN Cancelled 10/29/23 06:00
Creatinine Cancelled 10/29/23 06:00
Glucose Cancelled 10/29/23 06:00
Troponins
10/26/23 10/27/23 10/27/23
18:14 01:55 10:36
Troponin I 2.500 H* 2.610 H* 2.560 H*
10/29/23
03:50
Troponin I 0.721 H*
Vital Signs and I&O:
Vital Signs
Temp Pulse Resp BP Pulse Ox
97.8 F 78 16 103/65 95
10/29/23 07:00 10/29/23 08:50 10/29/23 07:25 10/29/23 08:50 10/29/23 07:25
Vital Signs
Temp Pulse Resp BP Pulse Ox
97.8 F 78 16 103/65 95
10/29/23 07:00 10/29/23 08:50 10/29/23 07:25 10/29/23 08:50 10/29/23 07:25
Intake & Output
10/27/23 10/28/23 10/29/23 10/30/23
06:59 06:59 06:59 06:59
Intake Total 399.6 / 419.3 1512.1 / 1523.1 1471472
Output Total 774 / 774 285 / 285
Balance -374.4 / -354.7 1227.1 / 1238.1 1472
Physical Exam
Physical Exam
General: Well developed, well nourished in NAD.
Heart: Distant heart sounds regular
Lungs: Decreased at the bases with increased expiratory phase.
Extremities: No clubbing, cyanosis or edema bilaterally.
Neuro: Grossly nonfocal, awake, alert and oriented x3. Some mild memory loss.
[2023-10-29] MEDS: STRIVERDI RESPIMAT 2 PUFF INH (11:10)
[2023-10-29] MEDS: SPIRIVA RESPIMAT 2.5 MCG 2 PUFF INH (11:10)
[2023-10-29 11:46] LABS: Glucose - Point of Care 125 mg/dl (70-99)
--- NOTE | 2023-10-29 14:14 | W.PN.HOSP.TC ---
Today's Communication/Plan
-
for [facility] tomorrow
Assessment / Plan
Assessment / Plan
Acute hypoxic and hypercapnic respite failure
Vent dependent resp failure - extubated on 10/26
-Currently extubated on oxygen through nasal cannula.
COPD flare up
-Follows up with pulmonology on outpatient basis
-CT chest 10/25 showing no active cardiopulmonary disease/no PE.
-Was on IV steroid, transition to oral prednisone 40 mg daily
-Azithromycin changed to doxycycline due to QTc prolongation
Troponin elevation
-No reported chest pain overnight
-Cardiology to plan for possible ischemic evaluation.
-TTE showed EF 43% and mid distal/septal/inferior/anterior wall hypokinesis and apical akinesis
-currently on heparin drip
-Chest pain episode in night , cardio planning to do [facility] tomorrow.
Hyponatremia - Improving
-Urine Na of 99 and Uosm 337
-Suspected euvolemic hyponatremia
-maintain on fluid restriction
-hold SSRI
Hypertensive emergency
-back on Cardizem
Persistent atrial fibrillation
� Start back on Cardizem
Hypothyroidism
� Continue Synthroid
Depression
-hold escitalopram with hyponatremia
DVT PPX - heparin drip
Full code
Transfer to telemetry
Anticipated Discharge: Within 24 hours
Subjective/Interval History
-
Date of Service: October 29, 2023
chest pain in night
o2 requirement stable
Objective Data
-
Labs:
Laboratory Results
10/29/23 10/29/23 10/29/23
03:50 06:00 06:26
WBC 11.2 H 10.4
Hgb 12.3 12.0
Hct 34.5 L 35.3 L
Plt Count 242 216
APTT 83.0 H
Sodium 131 L Cancelled
Potassium 4.0 Cancelled
Chloride 100 Cancelled
Carbon Dioxide 27 Cancelled
BUN 16 Cancelled
Creatinine 0.6 Cancelled
Glucose 96 Cancelled
Calcium 9.7 Cancelled
Total Bilirubin 0.4 Cancelled
AST 37 H Cancelled
ALT 36 H Cancelled
Alkaline Phosphatase 76 Cancelled
Vital Signs:
Vital Signs
Temp Pulse Resp BP Pulse Ox
98.3 F 72 16 120/56 96
10/29/23 11:20 10/29/23 11:32 10/29/23 11:32 10/29/23 11:20 10/29/23 11:32
I&O
10/28/23 10/29/23 10/30/23
06:59 06:59 06:59
Intake Total 1512.1 / 1523.1 1473 / 1473
Output Total 285 / 285
Balance 1227.1 / 1238.1 1473 / 1473
Review of Systems
-
Respiratory: Reports No Symptoms
Cardiac: Reports No Symptoms
Abdomen/GI: Reports No Symptoms
Physical Exam
-
General: Comfortable and Cachectic
HEENT: Oxygen (2 L NC)
Respiratory: Clear to Auscultation
Cardiac: Regular Rhythm and S1/S2; Negative Murmur or Rub
GI: Soft, Nontender and Nondistended
Musculoskeletal: No Edema
Neuro: Awake, Alert, Oriented, No Motor Deficits and Nonfocal/Grossly Intact
Psych: Calm
[2023-10-29 16:23] LABS: Glucose - Point of Care 171 mg/dl (70-99)
[2023-10-29] MEDS: NOVOLOG FLEXPEN-LOW RESISTANCE 1 UNITS SC (17:33)
[2023-10-29] MEDS: LIPITOR 40 MG PO (17:34)
[2023-10-29] MEDS: MUCINEX 1200 MG PO (20:16)
[2023-10-29] MEDS: PULMICORT 0.5 MG INH (20:54)
[2023-10-29] MEDS: VENTOLIN NEBULES 2.5 MG INH (20:55)
[2023-10-29 21:59] LABS: Glucose - Point of Care 109 mg/dl (70-99)
[2023-10-29] MEDS: HEPARIN 25000 UNITS/250 ML IV (22:56)
[2023-10-30] VITALS (11 sets, daily range): BP systolic 104–125; BP diastolic 57–89
--- NOTE | 2023-10-30 04:53 | DOWNTIME ---
There was a [employer] Client Sap Senior Developer Downtime on 10/30/2023 from 0100 to 10/30/2023 at 0439. Downtime documentation of patient's care, including medication administrations, has been reconciled in the electronic record per guidelines. Refer to the
patient's paper chart under the miscellaneous tab to see printed paper medication records and downtime forms.
[2023-10-30 05:48] LABS: Glucose - Point of Care 91 mg/dl (70-99)
[2023-10-30] MEDS: SYNTHROID 150 MCG PO (05:54)
[2023-10-30] MEDS: NOVOLOG FLEXPEN-LOW RESISTANCE SC ×2 (06:31→12:14)
[2023-10-30 06:48] LABS: % Basophils 0.2 % (0-2); % Eosinophils 2.5 % (0-6); % Immature Granulocytes 0.7 % (0-0.5); % Lymphocytes 26.9 % (20.5-51.1); % Neutrophils 62.7 % (42.2-75.2); Absolute Eosinophils 0.3 10^3/uL (0-0.7); Absolute Immature Granulocytes 0.1 10^3/uL (0-0.05); Absolute Lymphocytes 3.1 10^3/uL (1.2-3.4); Absolute Monocytes 0.8 10^3/uL (0.1-0.6); Absolute Neutrophils 7.1 10^3/uL (1.4-6.5); Hematocrit 36.9 % (37.0-47.0); Hemoglobin 12.3 g/dL (12.0-16.0); Mean Corp Hgb Conc. 33.3 g/dL (33.0-37.0); Mean Corpuscular Hgb 28.9 pg (27.0-31.0); Mean Corpuscular Volume 86.6 fL (81.0-99.0); Nucleated Red Blood Cells % 0 %; Platelet Count 215 10^3/uL (130-400); Red Blood Cell Count 4.26 10^6/uL (4.20-5.40); White Blood Cell Count 11.4 10^3/uL (4.8-10.8)
[2023-10-30 06:52] LABS: APTT 120.4 Sec (23.4-35.0)
[2023-10-30] MEDS: PULMICORT 0.5 MG INH ×2 (07:38→19:56)
[2023-10-30] MEDS: SPIRIVA RESPIMAT 2.5 MCG 2 PUFF INH (07:38)
[2023-10-30] MEDS: STRIVERDI RESPIMAT 2 PUFF INH (07:39)
[2023-10-30 07:40] LABS: ALT (SGPT) 29 U/L (0-35); AST (SGOT) 32 U/L (14-36); Albumin 3.6 g/dl (3.5-5.0); Alkaline Phosphatase 71 U/L (38-126); Blood Urea Nitrogen 16 mg/dl (7-17); Carbon Dioxide 28 mmol/L (22-30); Chloride 99 mmol/L (98-107); Estimated Creatinine Clearance 75 ml/min; Glucose 81 mg/dl (70-99); Potassium 3.9 mmol/L (3.5-5.1); Sodium 133 mmol/L (135-145); Total Bilirubin 0.4 mg/dl (0.2-1.3); Total Protein 5.9 g/dl (6.3-8.2); eGFR > 60.00
--- NOTE | 2023-10-30 07:49 | W.PN.PUL3 ---
Today's Communication / Plan
-
Start diuresis given elevated LVEDP today on [facility]
Continue triple inhaler therapy
Mucolytics with mucinex and start flutter valve
IS ordered and encouraged
Replete K>4, Mg>2
Trend WBC
5 days prednisone + doxy
Pulmonary will continue to follow -she will follow-up with her own fire control technician g, Dr. Salmeron at [place]
Assessment
-
77-year-old female with history of suspected COPD, former smoker per records, presented with shortness of breath for 4 days. Patient was given aspirin nitroglycerin in the field and nebulized therapy due to significant wheezing. Upon arrival,
given IV Lasix. Patient had developed increased lethargy, hypercapnia, required intubation in the ED. We were asked to help from critical care standpoint. Patient now extubated, downgraded to floor and pulmonary is continuing to follow.
Impression:
Acute hypercapnic/hypoxic respiratory failure due to AECOPD in setting of ADHF w/ ACS
Intubated 10/26/23 + extubated 10/27/23 to 2 L nasal cannula
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
Centrilobular emphysema/?COPD (no PFTs on file) with mucoid impaction seen in smaller airways/bronchioles
Left bundle branch block
Leukocytosis
Hyponatremia - improved
Hyperglycemia - resolved
Elevated lactate - normalized
Mild acute transaminitis - resolved
Elevated troponin due to ACS (NSTEMI) - troponin peaked at 2.61 on 10/27/2023
Assessment and plan
Acute hypercapnic/hypoxic respiratory failure
Intubated 10/26/23 in ER
Extubated 10/27/23 to 2 L nasal cannula in ICU.
-Chest x-ray 10/26/2023 with mild interstitial edema, repeat chest x-ray 10/27/2023 which resolved pulmonary edema and no acute mediastinal or cardiopulmonary abnormalities.
-Chest CT 10/26/2023 with no cardiopulmonary disease or pulmonary embolism.
-Echocardiogram 10/28/2023 unremarkable.
-Hypercapnia probably due to COPD exacerbation vs pulmonary edema
-TRX from Decadron to PO prednisone today --> continue 40 mg for 5 days
-Takes Anoro at home --> will continue Spiriva and Striverdi
-Yesterday she was still feeling short of breath, and Pulmicort was added. She feels improved with this regimen. She should be DC'd home on triple inhaler therapy (i.e., Breztri vs Trelegy).
- Continue mucolytics with Mucinex + flutter valve
-Azithromycin was stopped due to QT prolongation (552ms today)
-Doxycycline started for 5 days.
-Diuresis as per cardiology
Elevated troponin with left bundle branch block, tachycardia
-Echocardiogram 10/28/2023 unremarkable with EF 43%.
-Suspected NSTEMI although echocardiogram unremarkable. Patient underwent left heart cath today showing nonobstructive CAD and elevated LVEDP
- Hep gtt DC'd
-azithromycin DC'd given QT prolongation.
-Continue aspirin and high intensity statin with atorvastatin 40mg qPM
-Cardiology following
Leukocytosis.
-WBC now normal
-Blood cxs 10-25 NTD
-Chest CT unremarkable for infiltrates.
-azithromycin DC'd due to QT prolongation and started doxycycline p.o. for 5 days.
-Trend white count
Hyponatremia.
-Most likely due to hypervolemia.
-IV Lasix resumed today at 20 mg daily
-trend sNa levels
DVT prophylaxis: Now that she is off hep gtt, would start HSQ vs LMWH
GI prophylaxis: On pantoprazole 40mg PO daily
Incentive spirometer discussed with the patient and she is amenable to using
Pulmonary service will continue to follow along.
Total time spent today was 35 minutes for this encounter. Time includes reviewing laboratory test/imaging results, reviewing pertinent medical records, obtaining and reviewing medical history, performing an appropriate exam, ordering medications,
tests and procedures. Time also includes documentation of this encounter, coordinating patient care and communicating with other healthcare professionals. Total time does not include separately billed tests performed on this date of service.
Data:
CXR 10-29-2023: No acute cardiopulmonary process.
TTE 10-28-2023:
Normal left ventricular chamber size. Normal left ventricular wall thickness.
Moderately reduced left ventricular systolic function. Mid-distal, septal,
inferior, anterior wall hypokinesis and Apical akinesis. Left ventricular
ejection fraction is 43 % by biplane Corley's method of discs. Normal
diastolic function.
Normal right ventricular size and function.
Thickened mitral valve leaflets. Mitral annular calcification. Mitral valve
opens normally. Mild mitral regurgitation.
Thickened trileaflet aortic valve. The aortic valve is structurally and
functionally normal.
Structurally normal tricuspid valve. Tricuspid valve opens normally. Mild
tricuspid regurgitation. Estimated pulmonary artery pressure 34 mmHg assuming
a right atrial pressure of 8 mmHg.
Subjective Data
-
Date of Service:
Date of Service: October 30, 2023
Chief Complaint: Pulmonary Follow Up
Subjective:
Patient seen at bedside. Daughter at bedside and all questions were answered. Left heart cath performed today showing elevated LVEDP at 24 mmHg. Patient feels and looks much better today. Patient denies chest pain, headache, shortness of breath,
fevers or chills.
Review of Systems
General: Other (Negative unless mentioned above)
Objective Data
Data Reviewed
Vital Signs / I&O / Oxygen:
Vital Signs
Temp Pulse Resp BP Pulse Ox
98 F 78 16 122/70 94
10/30/23 03:55 10/30/23 07:43 10/30/23 07:43 10/30/23 03:55 10/30/23 07:43
Intake and Output
10/29/23 10/30/23 10/31/23
06:59 06:59 06:59
Intake Total 1473 / 1473 360 / 360
Balance 1472 360 / 360
SaO2 [CPAP/PSV] 98
SaO2 [A/C] 99
SaO2 94
Nasal Cannula flow liters per 2
minute
Physical Exam
General: Comfortable and Chills (negative)
HEENT: Normocephalic and Anicteric
Cardiovascular: S1-S2, Peripheral Edema (negative) and Other (distant heart sounds)
Respiratory: Wheeze (negative), Crackles (bilaterally), Rhonchi (negative) and Accessory Resp Muscle Use (negative)
GI: Soft, Non Distended, Non Tender and Normal Bowel Sounds
Neurology: AO x 3
Skin: Warm and Dry
Labs/Micro/Reports
Lab Data
10/30/23 06:29
10/30/23 06:29
Laboratory Results
10/30/23
06:29
APTT 120.4 H
Microbiology
10/26/23 21:33 Blood/Venous Blood Culture - Preliminary
No Growth in 72 hours- Final report to follow
10/26/23 21:33 Blood/Venous Blood Culture - Preliminary
No Growth in 72 hours- Final report to follow
--- NOTE | 2023-10-30 07:52 | ITS.CL.CATH ---
[facility] - Catheterization
Cardiac Catheterization
Procedure Report:
LEFT HEART CATHETERIZATION
Date of Procedure: October 30, 2023
Referring: Leslie Reyes
PROCEDURES:
1. Left heart catheterization, coronary angiogram.
2. Ultrasound-guided access
INDICATION: Ms Benoit is a 77-year-old female with past medical history of chronic left bundle branch block, COPD, early dementia/memory loss, hypertension who presents this admission with acute hypercapnic/hypoxic respiratory failure needing
mechanical ventilation now extubated and in this interim was found to have an elevated troponin level with some complaints of chest discomfort and peak troponin of 2 an echocardiogram on October 28, 2023 showing mid to distal, septal, inferior,
anterior wall hypokinesis and Apical akinesis, LVEF is 43% she is now being referred for a left heart catheterization to rule out obstructive CAD.
ACCESS: Right radial artery, 5 Vietnamese sheath, under ultrasound guidance
HEMODYNAMICS : (mmHg)
AO (s/d) : 124/73
LV (s/d) : 128/11
LVEDP : 24
CORONARY FINDINGS
DOMINANCE: Right
LEFT MAIN: The left main artery is a large-caliber vessel which gives rise to the left anterior descending artery and the left circumflex artery. There is minimal luminal irregularities.
LEFT ANTERIOR DESCENDING: The left anterior descending artery is a large-caliber vessel which gives rise to 1 major diagonal branch as it courses through the anterior interventricular groove and wraps around the apex. There is 20 to 30% ostial to
proximal LAD stenosis. Otherwise there is mild diffuse atherosclerotic plaque.
CIRCUMFLEX: The circumflex artery is a small to medium caliber vessel which gives rise to 2 major obtuse marginal branches. There is mild diffuse atherosclerotic plaque.
RIGHT CORONARY ARTERY: The right coronary artery is a large-caliber, dominant vessel which gives rise to the right posterior descending artery and the right posterolateral system. There is moderate to severe degree of tortuosity. There is mild
diffuse atherosclerotic plaque in the proximal to mid RCA and otherwise luminal irregularities are present
SEDATION: 30 minutes of procedural sedation was utilized. An independent medical physicist was present to assist with and help manage the patient's level of consciousness and physiologic status.
RADIATION SUMMARY: Fluoro Time (min): 1.9, Dose (mGy): 181.25, DAP (Gy.cm2) : 15.86
Closure Device: Vascular band over right radial artery, 11 cc of air.
CONCLUSIONS
1. Non-obstructive coronary artery disease.
2. Elevated LVEDP
RECOMMENDATIONS
1. Goal-directed medical therapy for nonischemic cardiomyopathy and optimization of filling pressures.
2. Aggressive management of cardiovascular risk factors.
3. Wean radial band per protocol.
4. Referral for outpatient cardiac rehab.
Copy to: Leslie Reyes
Grisel Noyola MD, FACC, [facility]
[2023-10-30] MEDS: ASPIR LOW (ENTERIC COATED) 81 MG PO (07:54)
[2023-10-30] MEDS: MUCINEX 1200 MG PO ×2 (07:54→20:18)
[2023-10-30] MEDS: VIBRAMYCIN 100 MG PO (07:54)
[2023-10-30] MEDS: PROTONIX 40 MG PO (07:55)
[2023-10-30] MEDS: DELTASONE 40 MG PO (07:55)
[2023-10-30 12:12] LABS: Glucose - Point of Care 118 mg/dl (70-99)
[2023-10-30 13:20] LABS: APTT 86.5 Sec (23.4-35.0)
--- NOTE | 2023-10-30 13:30 | CM ---
Reviewed chart, patient progressing well in Pt/Ot, per notes on previous level of functioning she is close to baseline.
Plan: Case management will continue to follow and assist with discharge planning. Home when stable. Will watch for VN needs.
--- NOTE | 2023-10-30 13:42 | W.PN.HOSP.TC ---
Today's Communication/Plan
-
for LHC today
continue heparin drip
on oral steroids
Assessment / Plan
Assessment / Plan
Acute hypoxic and hypercapnic respite failure - improved
Vent dependent resp failure - extubated on 10/26
-Currently extubated on oxygen through nasal cannula.
COPD flare up
-Follows up with pulmonology on outpatient basis
-CT chest 10/25 showing no active cardiopulmonary disease/no PE.
-Was on IV steroid, transition to oral prednisone 40 mg daily
-Azithromycin changed to doxycycline due to QTc prolongation
Troponin elevation
-No reported chest pain overnight
-Cardiology to plan for possible ischemic evaluation.
-TTE showed EF 43% and mid distal/septal/inferior/anterior wall hypokinesis and apical akinesis
-currently on heparin drip
-Planning to undergo LHC today.
Hyponatremia - Improving
-Urine Na of 99 and Uosm 337
-Suspected euvolemic hyponatremia
-maintain on fluid restriction
-hold SSRI
Hypertensive emergency
-back on Cardizem
Persistent atrial fibrillation
� Start back on Cardizem
Hypothyroidism
� Continue Synthroid
Depression
-hold escitalopram with hyponatremia
DVT PPX - heparin drip
Full code
Anticipated Discharge: Within 24 hours
Subjective/Interval History
-
Date of Service: October 30, 2023
Resting comfortably in bed
Off of oxygen
Objective Data
-
Labs:
Laboratory Results
10/30/23 10/30/23
06:29 12:55
WBC 11.4 H
Hgb 12.3
Hct 36.9 L
Plt Count 215
APTT 120.4 H 86.5 H
Sodium 133 L
Potassium 3.9
Chloride 99
Carbon Dioxide 28
BUN 16
Creatinine 0.6
Glucose 81
Calcium 10.0
Total Bilirubin 0.4
AST 32
ALT 29
Alkaline Phosphatase 71
Vital Signs:
Vital Signs
Temp Pulse Resp BP Pulse Ox
98.2 F 67 18 116/67 96
10/30/23 11:00 10/30/23 11:00 10/30/23 11:00 10/30/23 11:00 10/30/23 11:00
I&O
10/29/23 10/30/23 10/31/23
06:59 06:59 06:59
Intake Total 1473 / 1473 360 / 360
Balance 1473 / 1473 360 / 360
Review of Systems
-
Respiratory: Reports No Symptoms
Cardiac: Reports No Symptoms
Abdomen/GI: Reports No Symptoms
Physical Exam
-
General: Comfortable and Cachectic
HEENT: Oxygen (2 L NC)
Respiratory: Clear to Auscultation
Cardiac: Regular Rhythm and S1/S2; Negative Murmur or Rub
GI: Soft, Nontender and Nondistended
Musculoskeletal: No Edema
Neuro: Awake, Alert, Oriented, No Motor Deficits and Nonfocal/Grossly Intact
Psych: Calm
[2023-10-30] MEDS: LIPITOR 40 MG PO (17:29)
[2023-10-30] MEDS: LASIX 20 MG IV (17:29)
[2023-10-30] MEDS: TOPROL XL 25 MG PO (17:31)
[2023-10-30 17:55] LABS: Glucose - Point of Care 154 mg/dl (70-99)
[2023-10-30] MEDS: NOVOLOG FLEXPEN-LOW RESISTANCE 1 UNITS SC (17:57)
[2023-10-30] MEDS: TYLENOL 650 MG PO (20:18)
[2023-10-31 03:35] VITALS: BP 106/74
[2023-10-31] MEDS: SYNTHROID 150 MCG PO (05:33)
[2023-10-31 07:00] VITALS: BP 113/73
[2023-10-31] MEDS: PULMICORT 0.5 MG INH ×2 (07:45→19:22)
[2023-10-31] MEDS: STRIVERDI RESPIMAT 2 PUFF INH (07:45)
[2023-10-31] MEDS: SPIRIVA RESPIMAT 2.5 MCG 2 PUFF INH (07:45)
[2023-10-31 08:23] LABS: Glucose - Point of Care 97 mg/dl (70-99)
[2023-10-31] MEDS: TOPROL XL 25 MG PO (08:55)
[2023-10-31] MEDS: PROTONIX 40 MG PO (08:55)
[2023-10-31] MEDS: MUCINEX 1200 MG PO ×2 (08:55→21:09)
[2023-10-31] MEDS: ASPIR LOW (ENTERIC COATED) 81 MG PO (08:55)
[2023-10-31] MEDS: VIBRAMYCIN 100 MG PO (08:55)
[2023-10-31] MEDS: DELTASONE 40 MG PO (08:55)
[2023-10-31] MEDS: LASIX 20 MG IV (08:56)
--- NOTE | 2023-10-31 09:33 | W.PN.CARDCBS ---
Today's Communication / Plan
-
Reviewed her cath which did not show obstructive disease. LVEDP was 24.
Continue IV lasix and transition off lasix October 31. .
Given CM, cont Toprol. Add low dose ACEI, Lisinopril 2.5 mg daily. Cardizem stopped given CM.
Cont ASA
Cont statin. LFTs improved.
Monitor QTc which was increased on Azithromycin which has been discontinued in favor of doxycycline. Avoid QT prolonging medications.
Appreciate pulmonary input managing COPD, likely longstanding lung disease. Pt on steroids
Impression / Plan
-
.
Impression:
Acute hypercapnic/hypoxic respiratory failure
Acute congestive heart failure, heart failure with mildly reduced ejection fraction.
Elevated troponin peak 2.6, -non-Q wave myocardial infarction
COPD exacerbation
Unremarkable CT chest, no evidence of PE
Left bundle branch block
Leukocytosis
Hyponatremia
Hyperglycemia
Elevated lactate
Mild acute transaminitis
Increased QT interval.
Memory loss
Echo 10/28/2023: Normal LV size. Normal RV. Mid-distal, septal, inferior, anterior wall hypokinesis and Apical akinesis. LVEF is 43 %. Mild mitral regurgitation. Mild tricuspid regurgitation. Estimated pulmonary artery pressure 34 mmHg assuming
a right atrial pressure of 8 mmHg.
Cath October 30 2023
LEDP : 24
CORONARY FINDINGS
DOMINANCE: Right
LEFT MAIN: The left main artery is a large-caliber vessel which gives rise to the left anterior descending artery and the left circumflex artery. There is minimal luminal irregularities.
LEFT ANTERIOR DESCENDING: The left anterior descending artery is a large-caliber vessel which gives rise to 1 major diagonal branch as it courses through the anterior interventricular groove and wraps around the apex. There is 20 to 30% ostial to
proximal LAD stenosis. Otherwise there is mild diffuse atherosclerotic plaque.
CIRCUMFLEX: The circumflex artery is a small to medium caliber vessel which gives rise to 2 major obtuse marginal branches. There is mild diffuse atherosclerotic plaque.
RIGHT CORONARY ARTERY: The right coronary artery is a large-caliber, dominant vessel which gives rise to the right posterior descending artery and the right posterolateral system. There is moderate to severe degree of tortuosity. There is mild
diffuse atherosclerotic plaque in the proximal to mid RCA and otherwise luminal irregularities are present
CONCLUSIONS
1. Non-obstructive coronary artery disease.
2. Elevated LVEDP
Plan:
Reviewed her cath which did not show obstructive disease. LVEDP was 24.
Continue IV lasix and transition off lasix October 31. .
Given CM, cont Toprol. Add low dose ACEI, Lisinopril 2.5 mg daily. Cardizem stopped given CM.
Cont ASA
Cont statin. LFTs improved.
Monitor QTc which was increased on Azithromycin which has been discontinued in favor of doxycycline. Avoid QT prolonging medications.
Appreciate pulmonary input managing COPD , likely longstanding lung disease. Pt on steroids
Progress Note - Sketch Liner
Subjective
Date of Service: October 31, 2023
Pt seen and examined. No complaints. No chest pain or shortness of breath.
Objective
Labs:
10/30/23 06:29
10/30/23 06:29
Labs
Hgb 12.3 g/dL (12.0-16.0) 10/30/23 06:29
Hct 36.9 % (37.0-47.0) L 10/30/23 06:29
Plt Count 215 10^3/uL (130-400) 10/30/23 06:29
PT 14.6 Sec (11.4-14.6) 10/27/23 03:19
INR 1.16 10/27/23 03:19
APTT 86.5 Sec (23.4-35.0) H 10/30/23 12:55
Sodium 133 mmol/L (135-145) L 10/30/23 06:29
Potassium 3.9 mmol/L (3.5-5.1) 10/30/23 06:29
BUN 16 mg/dl (7-17) 10/30/23 06:29
Creatinine 0.6 mg/dL (0.6-1.0) 10/30/23 06:29
Glucose 81 mg/dl (70-99) 10/30/23 06:29
Troponins
10/29/23
03:50
Troponin I 0.721 H*
Vital Signs and I&O:
Vital Signs
Temp Pulse Resp BP Pulse Ox
98.1 F 88 16 113/73 96
10/31/23 07:00 10/31/23 08:55 10/31/23 07:51 10/31/23 08:55 10/31/23 07:51
Vital Signs
Temp Pulse Resp BP Pulse Ox
98.1 F 88 16 113/73 96
10/31/23 07:00 10/31/23 08:55 10/31/23 07:51 10/31/23 08:55 10/31/23 07:51
Intake & Output
10/29/23 10/30/23 10/31/23 11/01/23
06:59 06:59 06:59 06:59
Intake Total 1473 / 1473 360 / 360 720 / 720
Balance 1473 / 1473 360 / 360 720 / 720
Physical Exam
Physical Exam
General: No acute distress, AAOX3
Neck: Negative JVD
Heart: Regular, Negative S3 positive S1/S2, Negative S4, No murmur
Lungs: Mild rhonchi b/l, negative wheezes/rales
Abd: Positive BS, NT/ND, neg rebound/rigidity/guarding
Ext: Negative cyanosis/clubbing/edema
Neuro: nonfocal
--- NOTE | 2023-10-31 09:38 | W.PN.PUL3 ---
Today's Communication / Plan
-
Diuresis given elevated LVEDP on [facility] from 10/29
Continue triple inhaler therapy --> DC home on Breztri or Trelegy
Mucolytics with mucinex and flutter valve
IS encouraged
Replete K>4, Mg>2
Trend WBC
5 days prednisone + doxy
Pulmonary will continue to follow -she will follow-up with her own business management consultant, Dr. Salmeron at [place]
Assessment
-
77-year-old female with history of suspected COPD, former smoker per records, presented with shortness of breath for 4 days. Patient was given aspirin nitroglycerin in the field and nebulized therapy due to significant wheezing. Upon arrival,
given IV Lasix. Patient had developed increased lethargy, hypercapnia, required intubation in the ED. We were asked to help from critical care standpoint. Patient now extubated, downgraded to floor and pulmonary is continuing to follow.
Impression:
Acute hypercapnic/hypoxic respiratory failure due to AECOPD in setting of ADHF w/ ACS
Intubated 10/26/23 + extubated 10/27/23 to 2 L nasal cannula
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
Centrilobular emphysema/?COPD (no PFTs on file) with mucoid impaction seen in smaller airways/bronchioles
Left bundle branch block
Leukocytosis
Hyponatremia - improved
Hyperglycemia - resolved
Elevated lactate - normalized
Mild acute transaminitis - resolved
Elevated troponin due to ACS (NSTEMI) - troponin peaked at 2.61 on 10/27/2023
Assessment and plan
Acute hypercapnic/hypoxic respiratory failure
Intubated 10/26/23 in ER
Extubated 10/27/23 to 2 L nasal cannula in ICU.
-Chest x-ray 10/26/2023 with mild interstitial edema, repeat chest x-ray 10/27/2023 which resolved pulmonary edema and no acute mediastinal or cardiopulmonary abnormalities.
-Chest CT 10/26/2023 with no cardiopulmonary disease or pulmonary embolism.
-Echocardiogram 10/28/2023 unremarkable.
-Hypercapnia probably due to COPD exacerbation vs pulmonary edema
-TRX from Decadron to PO prednisone on 10/28--> continue 40 mg for 5 days
-Takes Anoro at home --> will continue Spiriva and Striverdi
- on 10/28 she was still feeling short of breath, and Pulmicort was added. She feels improved with this regimen. She should be DC'd home on triple inhaler therapy (i.e., Breztri vs Trelegy).
- Continue mucolytics with Mucinex + flutter valve
-Azithromycin was stopped due to QT prolongation (552ms today)
-Doxycycline started for 5 days.
-Diuresis as per cardiology
Elevated troponin with left bundle branch block, tachycardia
-Echocardiogram 10/28/2023 unremarkable with EF 43%.
-Suspected NSTEMI although echocardiogram unremarkable. Patient underwent left heart cath today showing nonobstructive CAD and elevated LVEDP
- Hep gtt DC'd
-azithromycin DC'd given QT prolongation.
-Continue aspirin and high intensity statin with atorvastatin 40mg qPM
-Cardiology following
Leukocytosis.
-WBC now normal
-Blood cxs 10-25 NTD
-Chest CT unremarkable for infiltrates.
-azithromycin DC'd due to QT prolongation and started doxycycline p.o. for 5 days.
-Trend white count
Hyponatremia.
-Most likely due to hypervolemia.
-IV Lasix resumed today at 20 mg daily
-trend sNa levels
DVT prophylaxis: start LMWH
GI prophylaxis: On pantoprazole 40mg PO daily
Incentive spirometer discussed with the patient and she is amenable to using
Pulmonary service will continue to briefly follow along. She likely can be discharged home tomorrow.
Total time spent today was 35 minutes for this encounter. Time includes reviewing laboratory test/imaging results, reviewing pertinent medical records, obtaining and reviewing medical history, performing an appropriate exam, ordering medications,
tests and procedures. Time also includes documentation of this encounter, coordinating patient care and communicating with other healthcare professionals. Total time does not include separately billed tests performed on this date of service.
Data:
CXR 10-29-2023: No acute cardiopulmonary process.
TTE 10-28-2023:
Normal left ventricular chamber size. Normal left ventricular wall thickness.
Moderately reduced left ventricular systolic function. Mid-distal, septal,
inferior, anterior wall hypokinesis and Apical akinesis. Left ventricular
ejection fraction is 43 % by biplane Corley's method of discs. Normal
diastolic function.
Normal right ventricular size and function.
Thickened mitral valve leaflets. Mitral annular calcification. Mitral valve
opens normally. Mild mitral regurgitation.
Thickened trileaflet aortic valve. The aortic valve is structurally and
functionally normal.
Structurally normal tricuspid valve. Tricuspid valve opens normally. Mild
tricuspid regurgitation. Estimated pulmonary artery pressure 34 mmHg assuming
a right atrial pressure of 8 mmHg.
Subjective Data
-
Date of Service:
Date of Service: October 31, 2023
Chief Complaint: Pulmonary Follow Up
Subjective:
Patient seen this morning. She feels better overall. On room air breathing comfortably. Pulling about 1.5 L from incentive spirometer. Still coughing but bringing up clear phlegm. Denies chest pain, headache, abdominal pain, fevers or chills.
Review of Systems
General: Other (Negative unless mentioned above)
Objective Data
Data Reviewed
Vital Signs / I&O / Oxygen:
Vital Signs
Temp Pulse Resp BP Pulse Ox
98.1 F 88 16 113/73 96
10/31/23 07:00 10/31/23 08:55 10/31/23 07:51 10/31/23 08:55 10/31/23 07:51
Intake and Output
10/30/23 10/31/23 11/01/23
06:59 06:59 06:59
Intake Total 360 / 360 720 / 720
Balance 360 / 360 720 / 720
SaO2 [CPAP/PSV] 98
SaO2 [A/C] 99
SaO2 96
Nasal Cannula flow liters per 2
minute
Physical Exam
General: Comfortable and Chills (negative)
HEENT: Normocephalic and Anicteric
Cardiovascular: S1-S2, Peripheral Edema (negative) and Other (distant heart sounds)
Respiratory: Clear, Wheeze (negative), Crackles (negative), Rhonchi (negative) and Accessory Resp Muscle Use (negative)
GI: Soft, Non Distended, Non Tender and Normal Bowel Sounds
Neurology: AO x 3
Skin: Warm and Dry
Labs/Micro/Reports
Lab Data
10/30/23 06:29
10/30/23 06:29
Laboratory Results
10/30/23
12:55
APTT 86.5 H
Microbiology
10/26/23 21:33 Blood/Venous Blood Culture - Preliminary
No Growth in 4 days- Final report to follow
10/26/23 21:33 Blood/Venous Blood Culture - Preliminary
No Growth in 4 days- Final report to follow
--- NOTE | 2023-10-31 09:43 | PN.CDI ---
CDI
- -
CDI:
Physician Documentation Request
Admit Date: 10/26/23 21:40
Dear Doctor Heladio,
Please review the following and provide your response in the progress notes.
Due to conflicting documentation, please clarify the etiology of the elevated troponins
Clinical Indicators:
H+P, 10/25
#NStemi
#...Troponin 2.5, will trend
#HTN emergency
#...140/101 > 115/82 post IV Lasix, propofol
#NSTEMI, aspirin, heparin gtt, echo, cards consult
Cardiology consult, 10/26
#Elevated troponin-mechanism of her elevated troponin is
#...likely due to demand ischemia and potentially acute congestive heart failure
PN, 10/26
#Troponin elevation,
#...� Daily aspirin
Cardiology PN, 10/27
#Treat as non-Q wave myocardial infarction.
#...Aspirin and statin (on statin as an outpatient) added.
Cardiology PN, 10/28
#Elevated clgpevud-rte-M wave myocardial infarction
#EKG remains abnormal with T wave inversions
Coronary Catheterization, 10/29
#CONCLUSIONS
#...1. Non-obstructive coronary artery disease.
#RECOMMENDATIONS
#...1. Goal-directed medical therapy for nonischemic cardiomyopathy and ...
Laboratory Tests
10/26/23 10/27/23 10/27/23
18:14 01:55 10:36
Troponin I 2.500 H* 2.610 H* 2.560 H*
10/29/23
03:50
Troponin I 0.721 H*
Please clarify the following regarding the elevated troponins...:
NSTEMI
Non Q wave myocardial infarction
Type II (due to demand ischemia)
Nonischemic cardiomyopathy
Other (please specify)
Extent of NM
STEMI - indicate the location and vessel involved
NSTEMI - subendocardial, nontransmural
Type of NM
Type I
Type II (due to demand ischemia)
Use of terms such as suspected, likely, concern for, or probable (associated with a specific diagnosis that is being evaluated, monitored, or treated as if it exists) are acceptable and can be coded in the inpatient setting, when documented at the
time of discharge.
Thank you,
Lilly Diego RN BSN CCDS
CDI Specialist
please contact via tiger text
Please use your independent medical judgment in providing your response.
[2023-10-31 11:00] VITALS: BP 101/61
[2023-10-31 12:19] LABS: Glucose - Point of Care 120 mg/dl (70-99)
[2023-10-31] MEDS: ZESTRIL PO (13:12)
[2023-10-31 13:16] LABS: Blood Urea Nitrogen 23 mg/dl (7-17); Calcium 10.2 mg/dl (8.4-10.2); Carbon Dioxide 29 mmol/L (22-30); Chloride 95 mmol/L (98-107); Estimated Creatinine Clearance 64 ml/min; Glucose 106 mg/dl (70-99); Potassium 4.1 mmol/L (3.5-5.1); Sodium 130 mmol/L (135-145); eGFR > 60.00
--- NOTE | 2023-10-31 14:53 | W.PN.HOSP.TC ---
Today's Communication/Plan
-
possible discharge tomorrow
continue lasix
Assessment / Plan
Assessment / Plan
Acute hypoxic and hypercapnic respite failure - improved
Vent dependent resp failure - extubated on 10/26
-Currently extubated on oxygen through nasal cannula.
COPD flare up
-Follows up with pulmonology on outpatient basis
-CT chest 10/25 showing no active cardiopulmonary disease/no PE.
-Was on IV steroid, transition to oral prednisone 40 mg daily
-Azithromycin changed to doxycycline due to QTc prolongation
Troponin elevation
Nonobstructive coronary artery disease
-No reported chest pain overnight
-Cardiology to plan for possible ischemic evaluation.
-TTE showed EF 43% and mid distal/septal/inferior/anterior wall hypokinesis and apical akinesis
-currently on heparin drip
-Left heart catheterization on 10/29 showing nonobstructive coronary disease. Recommended medical management with aspirin/statin/luana
Euvolemic Hyponatremia
-Urine Na of 99 and Uosm 337
-Suspected euvolemic hyponatremia
-maintain on fluid restriction
-hold SSRI
Hypertensive emergency
-back on Cardizem
Persistent atrial fibrillation
� Start back on Cardizem
Hypothyroidism
� Continue Synthroid
Depression
-hold escitalopram with hyponatremia
DVT PPX - heparin drip
Full code
Anticipated Discharge: Within 24 hours
Subjective/Interval History
-
Date of Service: October 31, 2023
Resting comfortably in bed
Having some left knee pain
no other issues reported
Objective Data
-
Labs:
Laboratory Results
10/31/23
12:37
Sodium 130 L
Potassium 4.1
Chloride 95 L
Carbon Dioxide 29
BUN 23 H
Creatinine 0.7
Glucose 106 H
Calcium 10.2
Vital Signs:
Vital Signs
Temp Pulse Resp BP Pulse Ox
97.8 F 63 18 101/61 96
10/31/23 11:00 10/31/23 13:12 10/31/23 11:00 10/31/23 13:12 10/31/23 11:00
I&O
10/30/23 10/31/23 11/01/23
06:59 06:59 06:59
Intake Total 360 / 360 720 / 720
Balance 360 / 360 720 / 720
Review of Systems
-
Respiratory: Reports No Symptoms
Cardiac: Reports No Symptoms
Abdomen/GI: Reports No Symptoms
Physical Exam
-
General: Comfortable and Cachectic
HEENT: Oxygen (2 L NC)
Respiratory: Clear to Auscultation
Cardiac: Regular Rhythm and S1/S2; Negative Murmur or Rub
GI: Soft, Nontender and Nondistended
Musculoskeletal: No Edema
Neuro: Awake, Alert, Oriented, No Motor Deficits and Nonfocal/Grossly Intact
Psych: Calm
[2023-10-31 15:00] VITALS: BP 95/57
[2023-10-31 16:51] LABS: Glucose - Point of Care 136 mg/dl (70-99)
[2023-10-31] MEDS: LIPITOR 40 MG PO (17:23)
[2023-10-31 19:25] VITALS: BP 113/63
[2023-10-31 20:56] LABS: Glucose - Point of Care 124 mg/dl (70-99)
[2023-10-31] MEDS: LOVENOX 40 MG SC (21:19)
[2023-10-31 23:25] VITALS: BP 100/55
[2023-11-01 03:25] VITALS: BP 117/70
[2023-11-01] MEDS: SYNTHROID 150 MCG PO (05:38)
[2023-11-01 06:58] LABS: Blood Urea Nitrogen 21 mg/dl (7-17); Calcium 10.3 mg/dl (8.4-10.2); Carbon Dioxide 31 mmol/L (22-30); Chloride 96 mmol/L (98-107); Estimated Creatinine Clearance 64 ml/min; Glucose 77 mg/dl (70-99); Potassium 3.7 mmol/L (3.5-5.1); Sodium 130 mmol/L (135-145); eGFR > 60.00
[2023-11-01 07:00] VITALS: BP 169/75
[2023-11-01 07:05] LABS: NT-proBNP 3460 pg/ml
[2023-11-01] MEDS: PULMICORT 0.5 MG INH (07:29)
[2023-11-01] MEDS: SPIRIVA RESPIMAT 2.5 MCG 2 PUFF INH (07:30)
[2023-11-01] MEDS: STRIVERDI RESPIMAT 2 PUFF INH (07:30)
[2023-11-01] MEDS: MUCINEX 1200 MG PO (07:44)
[2023-11-01] MEDS: LASIX 20 MG IV (07:45)
[2023-11-01] MEDS: ASPIR LOW (ENTERIC COATED) 81 MG PO (07:45)
[2023-11-01] MEDS: DELTASONE 40 MG PO (07:45)
[2023-11-01] MEDS: TOPROL XL 25 MG PO (07:45)
[2023-11-01] MEDS: PROTONIX 40 MG PO (07:45)
[2023-11-01 07:47] LABS: Glucose - Point of Care 64 mg/dl (70-99)
[2023-11-01 08:29] LABS: Glucose - Point of Care 162 mg/dl (70-99)
[2023-11-01] MEDS: ZESTRIL 2.5 MG PO (09:04)
--- NOTE | 2023-11-01 09:20 | W.PN.PUL3 ---
Today's Communication / Plan
-
Diuresis given elevated LVEDP on [facility] from 10/29
Continue triple inhaler therapy --> DC home on Breztri or Trelegy
Mucolytics with mucinex and flutter valve
IS encouraged
Replete K>4, Mg>2
Trend WBC
5 days prednisone + doxy
Patient being prepared for DC home today. Pulmonary service will now sign off. Patient will follow up with her private [employer] indian policy specialist at [employer], Dr. Salmeron. Please reconsult if respiratory issues worsen/develop.
Assessment
-
77-year-old female with history of suspected COPD, former smoker per records, presented with shortness of breath for 4 days. Patient was given aspirin nitroglycerin in the field and nebulized therapy due to significant wheezing. Upon arrival,
given IV Lasix. Patient had developed increased lethargy, hypercapnia, required intubation in the ED. We were asked to help from critical care standpoint. Patient now extubated, downgraded to floor and pulmonary is continuing to follow.
Impression:
Acute hypercapnic/hypoxic respiratory failure due to AECOPD in setting of ADHF w/ ACS
Intubated 10/26/23 + extubated 10/27/23 to 2 L nasal cannula
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
Centrilobular emphysema/?COPD (no PFTs on file) with mucoid impaction seen in smaller airways/bronchioles
Left bundle branch block
Leukocytosis
Hyponatremia - stable
Hyperglycemia - resolved
Elevated lactate - normalized
Mild acute transaminitis - resolved
Elevated troponin due to ACS (NSTEMI) - troponin peaked at 2.61 on 10/27/2023
Assessment and plan
Acute hypercapnic/hypoxic respiratory failure
Intubated 10/26/23 in ER
Extubated 10/27/23 to 2 L nasal cannula in ICU.
-Chest x-ray 10/26/2023 with mild interstitial edema, repeat chest x-ray 10/27/2023 which resolved pulmonary edema and no acute mediastinal or cardiopulmonary abnormalities.
-Chest CT 10/26/2023 with no cardiopulmonary disease or pulmonary embolism.
-Echocardiogram 10/28/2023 unremarkable.
-Hypercapnia probably due to COPD exacerbation vs pulmonary edema
-TRX from Decadron to PO prednisone on 10/28--> continue 40 mg for 5 days
-Takes Anoro at home --> will continue Spiriva and Striverdi while she remains inpatient
- on 10/28 she was still feeling short of breath, and Pulmicort was added. She feels improved with this regimen. She should be DC'd home on triple inhaler therapy (i.e., Breztri vs Trelegy).
- Continue mucolytics with Mucinex + flutter valve
-Azithromycin was stopped due to QT prolongation (552ms today)
-Doxycycline started for 5 days.
-Diuresis as per cardiology
Elevated troponin with left bundle branch block, tachycardia
-Echocardiogram 10/28/2023 unremarkable with EF 43%.
-Suspected NSTEMI although echocardiogram unremarkable. Patient underwent left heart cath today showing nonobstructive CAD and elevated LVEDP
- Hep gtt DC'd
-azithromycin DC'd given QT prolongation.
-Continue aspirin and high intensity statin with atorvastatin 40mg qPM
-Cardiology following
Leukocytosis.
-Blood cxs 10-25 NTD
-Chest CT unremarkable for infiltrates.
-azithromycin DC'd due to QT prolongation and started doxycycline p.o. for 5 days.
-Trend white count
Hyponatremia.
-Most likely due to hypervolemia.
-IV Lasix resumed at 20 mg daily
-trend sNa levels
DVT prophylaxis: LMWH
GI prophylaxis: On pantoprazole 40mg PO daily
Incentive spirometer discussed with the patient and she is amenable to using
Patient being prepared for DC home today. Pulmonary service will now sign off. Patient will follow up with her private americ[employer] indian policy specialist at [employer]. Please reconsult if respiratory issues worsen/develop.
Total time spent today was 35 minutes for this encounter. Time includes reviewing laboratory test/imaging results, reviewing pertinent medical records, obtaining and reviewing medical history, performing an appropriate exam, ordering medications,
tests and procedures. Time also includes documentation of this encounter, coordinating patient care and communicating with other healthcare professionals. Total time does not include separately billed tests performed on this date of service.
Data:
CXR 10-29-2023: No acute cardiopulmonary process.
TTE 10-28-2023:
Normal left ventricular chamber size. Normal left ventricular wall thickness.
Moderately reduced left ventricular systolic function. Mid-distal, septal,
inferior, anterior wall hypokinesis and Apical akinesis. Left ventricular
ejection fraction is 43 % by biplane Corley's method of discs. Normal
diastolic function.
Normal right ventricular size and function.
Thickened mitral valve leaflets. Mitral annular calcification. Mitral valve
opens normally. Mild mitral regurgitation.
Thickened trileaflet aortic valve. The aortic valve is structurally and
functionally normal.
Structurally normal tricuspid valve. Tricuspid valve opens normally. Mild
tricuspid regurgitation. Estimated pulmonary artery pressure 34 mmHg assuming
a right atrial pressure of 8 mmHg.
Subjective Data
-
Date of Service:
Date of Service: November 01, 2023
Chief Complaint: Pulmonary Follow Up
Subjective:
Pt seen today. No events reported from overnight. Going home today. Feels similar to yesterday. No chest pain, FERNANDEZ, SOB at rest, abd pain, N/V/f/c.
Review of Systems
General: Other (neg unless mentioned above)
Objective Data
Data Reviewed
Vital Signs / I&O / Oxygen:
Vital Signs
Temp Pulse Resp BP Pulse Ox
97.9 F 72 16 117/70 99
11/01/23 03:25 11/01/23 09:04 11/01/23 07:34 11/01/23 09:04 11/01/23 07:34
Intake and Output
10/31/23 11/01/23 11/02/23
06:59 06:59 06:59
Intake Total 720 / 720 480 / 480
Balance 720 / 720 480 / 480
SaO2 [CPAP/PSV] 98
SaO2 [A/C] 99
SaO2 99
Nasal Cannula flow liters per 2
minute
Physical Exam
General: Comfortable and Chills (negative)
HEENT: Normocephalic and Anicteric
Cardiovascular: S1-S2, Peripheral Edema (negative) and Other (distant heart sounds)
Respiratory: Clear, Wheeze (negative), Crackles (negative), Rhonchi (negative) and Accessory Resp Muscle Use (negative)
GI: Soft, Non Distended, Non Tender and Normal Bowel Sounds
Neurology: AO x 3
Skin: Warm and Dry
Labs/Micro/Reports
Lab Data
10/30/23 06:29
11/01/23 06:01
Microbiology
10/26/23 21:33 Blood/Venous Blood Culture - Final
No Growth - Final Report
10/26/23 21:33 Blood/Venous Blood Culture - Final
No Growth - Final Report
[2023-11-01 11:00] VITALS: BP 109/67
[2023-11-01 12:17] LABS: Glucose - Point of Care 130 mg/dl (70-99)
--- NOTE | 2023-11-01 12:32 | W.PN.CARDCBS ---
Addendum entered and electronically signed by Elizabeth Chow DO 11/01/23 18:03:
Patient was discharged without being personally seen or examined.
The Executive Kitchen Manager's note was reviewed and I agree with the note.
EKG is stable; continue to monitor QTc on antibiotics
Transition to oral Lasix starting tomorrow
Patient will follow-up with her usual counter intelligence agent at time of discharge
Original Note:
Today's Communication / Plan
-
EKG stable with QTc 486 ms
Transition to oral Lasix on 11/02/2023
Continue Toprol, lisinopril, aspirin and statin
Call made to Dr. Rosmery Holguin outpatient counter intelligence agent to schedule follow-up at discharge. Awaiting callback
Impression / Plan
-
.
PCP: Dr. Usha Alicia
Staff Toxicologist: Dr. Rosmery Holguin, [facility],
Impression:
Presented w/ SOB 10/26/23
Acute hypercapnic/hypoxic respiratory failure
Acute congestive heart failure, heart failure with mildly reduced ejection fraction, proBNP 4650 .
Elevated troponin peak 2.6,Type 2 SC
COPD exacerbation
Unremarkable CT chest, no evidence of PE
Left bundle branch block
Leukocytosis
Hyponatremia
Hyperglycemia
Elevated lactate
Mild acute transaminitis
Increased QT interval.
Memory loss
Echo 10/28/2023: Normal LV size. Normal RV. Mid-distal, septal, inferior, anterior wall hypokinesis and Apical akinesis. LVEF is 43 %. Mild mitral regurgitation. Mild tricuspid regurgitation. Estimated pulmonary artery pressure 34 mmHg assuming
a right atrial pressure of 8 mmHg.
Cath October 30 2023
LEDP : 24
CORONARY FINDINGS
DOMINANCE: Right
LEFT MAIN: The left main artery is a large-caliber vessel which gives rise to the left anterior descending artery and the left circumflex artery. There is minimal luminal irregularities.
LEFT ANTERIOR DESCENDING: The left anterior descending artery is a large-caliber vessel which gives rise to 1 major diagonal branch as it courses through the anterior interventricular groove and wraps around the apex. There is 20 to 30% ostial to
proximal LAD stenosis. Otherwise there is mild diffuse atherosclerotic plaque.
CIRCUMFLEX: The circumflex artery is a small to medium caliber vessel which gives rise to 2 major obtuse marginal branches. There is mild diffuse atherosclerotic plaque.
RIGHT CORONARY ARTERY: The right coronary artery is a large-caliber, dominant vessel which gives rise to the right posterior descending artery and the right posterolateral system. There is moderate to severe degree of tortuosity. There is mild
diffuse atherosclerotic plaque in the proximal to mid RCA and otherwise luminal irregularities are present
CONCLUSIONS
1. Non-obstructive coronary artery disease.
2. Elevated LVEDP
Plan:
Abnormal troponin
-Type II SC likely secondary to acute hypoxic respiratory failure
-reviewed her cath which did not show obstructive disease. LVEDP was 24.
Heart failure w/ mildly reduced ejection fraction, proBNP peaked at 4650
-Repeat proBNP 10/31/2022 3460
-Transition to oral Lasix 20 mg 11/02/2023
-Call placed to outpatient counter intelligence agent to arrange follow-up. Awaiting callback
Nonischemic cardiomyopathy
-cont Toprol and Lisinopril 2.5 mg daily.
-Blood pressure labile but tends to run more on the low side preventing initiation of Aldactone. Consider up titration of medications as outpatient
-Consider SGLT2 inhibitor. Patient refers to wait untils he see's her outpatient counter intelligence agent to discuss
-Cardizem stopped given CM.
-Cont ASA, statin. LFTs improved.
Acute hypoxic respiratory failure
-Likely from COPD flareup.
-Symptoms improved with IV steroids which have then been transition to oral steroids.
-Treated with azithromycin which was changed to doxycycline due to prolonged QTc
Prolonged QTc, occurred on azithromycin. Now on doxycycline
-Remains in sinus rhythm w
-EKG 11/01/2023 sinus bradycardia with IVCD, QTc 486 ms
-Avoid QT prolonging medications.
Progress Note - Staff Toxicologist
Subjective
Date of Service: November 01, 2023
Patient seen and examined. Patient's daughter at bedside. Patient reports that she is feeling well. She has been able to ambulate around the room without chest pain, shortness of breath, dizziness, lightheadedness or palpitations.
Patient's daughter reports her outpatient counter intelligence agent is Dr. Rosmery Holguin at [facility].
Objective
Labs:
10/30/23 06:29
11/01/23 06:01
Labs
Hgb 12.3 g/dL (12.0-16.0) 10/30/23 06:29
Hct 36.9 % (37.0-47.0) L 10/30/23 06:29
Plt Count 215 10^3/uL (130-400) 10/30/23 06:29
PT 14.6 Sec (11.4-14.6) 10/27/23 03:19
INR 1.16 10/27/23 03:19
APTT 86.5 Sec (23.4-35.0) H 10/30/23 12:55
Sodium 130 mmol/L (135-145) L 11/01/23 06:01
Potassium 3.7 mmol/L (3.5-5.1) 11/01/23 06:01
BUN 21 mg/dl (7-17) H 11/01/23 06:01
Creatinine 0.7 mg/dL (0.6-1.0) 11/01/23 06:01
Glucose 77 mg/dl (70-99) 11/01/23 06:01
Vital Signs and I&O:
Vital Signs
Temp Pulse Resp BP Pulse Ox
97.2 F 60 16 109/67 98
11/01/23 11:00 11/01/23 11:00 11/01/23 11:00 11/01/23 11:00 11/01/23 11:00
Vital Signs
Temp Pulse Resp BP Pulse Ox
97.2 F 60 16 109/67 98
11/01/23 11:00 11/01/23 11:00 11/01/23 11:00 11/01/23 11:00 11/01/23 11:00
Intake & Output
10/30/23 10/31/23 11/01/23 11/02/23
06:59 06:59 06:59 06:59
Intake Total 360 / 360 720 / 720 480 / 480
Balance 360 / 360 720 / 720 480 / 480
Physical Exam
Physical Exam
GEN: No distress, awake, Ox3, sitting up in bed
HEENT: supple, anicteric, mmm
LUNGS: CTA, no wheezes/rales
CV: Reg, S1/S2, no murmur, rub or gallop
ABD: soft, BS+, NT/ND
EXT: No edema, clubbing or cyanosis; right radial access site with ecchymosis however no hematoma or signs of infection
NEURO: Gross non-focal
SKIN: No rash warm, dry, pink
--- NOTE | 2023-11-01 12:54 | W.PN.HOSP.TC ---
Addendum entered and electronically signed by Donny Leija MD 11/02/23 18:48:
Adjust diagnosis
Non [place] troponin elevation
Original Note:
Today's Communication/Plan
-
d.c home
Assessment / Plan
Assessment / Plan
Acute hypoxic and hypercapnic respite failure - improved
Vent dependent resp failure - extubated on 10/26
-Currently extubated on oxygen through nasal cannula.
COPD flare up
-Follows up with pulmonology on outpatient basis
-CT chest 10/25 showing no active cardiopulmonary disease/no PE.
-Was on IV steroid, transition to oral prednisone 40 mg daily - provided tapering course of steroids
-Azithromycin changed to doxycycline due to QTc prolongation
Troponin elevation
Nonobstructive coronary artery disease
-No reported chest pain overnight
-Cardiology to plan for possible ischemic evaluation.
-TTE showed EF 43% and mid distal/septal/inferior/anterior wall hypokinesis and apical akinesis
-Left heart catheterization on 10/29 showing nonobstructive coronary disease. Recommended medical management with aspirin/statin/luana
Euvolemic Hyponatremia
-Urine Na of 99 and Uosm 337
-Suspected euvolemic hyponatremia
-maintain on fluid restriction
-hold SSRI
Hypertensive emergency
-back on Cardizem
Persistent atrial fibrillation
� Start back on Cardizem
Hypothyroidism
� Continue Synthroid
Depression
-hold escitalopram with hyponatremia
DVT PPX - heparin drip
Full code
More than 30 minutes spent in discharge including
Final examination of the patient
Summarizing hospital stay
Instructions for continuing care to all relevant caregivers
Preparation of discharge records, prescriptions, and referral forms
Total time spent (in minutes): 40 mins
Anticipated Discharge: Today
Subjective/Interval History
-
Date of Service: November 01, 2023
Resting comfortably in bed
No acute issues overnight
Off of oxygen
Objective Data
-
Labs:
Laboratory Results
11/01/23
06:01
Sodium 130 L
Potassium 3.7
Chloride 96 L
Carbon Dioxide 31 H
BUN 21 H
Creatinine 0.7
Glucose 77
Calcium 10.3 H
Vital Signs:
Vital Signs
Temp Pulse Resp BP Pulse Ox
97.2 F 60 16 109/67 98
11/01/23 11:00 11/01/23 11:00 11/01/23 11:00 11/01/23 11:00 11/01/23 11:00
I&O
10/31/23 11/01/23 11/02/23
06:59 06:59 06:59
Intake Total 720 / 720 480 / 480
Balance 720 / 720 480 / 480
Review of Systems
-
Respiratory: Reports No Symptoms
Cardiac: Reports No Symptoms
Abdomen/GI: Reports No Symptoms
Physical Exam
-
General: Comfortable and Cachectic
HEENT: Oxygen (2 L NC)
Respiratory: Clear to Auscultation
Cardiac: Regular Rhythm and S1/S2; Negative Murmur or Rub
GI: Soft, Nontender and Nondistended
Musculoskeletal: No Edema
Neuro: Awake, Alert, Oriented, No Motor Deficits and Nonfocal/Grossly Intact
Psych: Calm
[2023-11-01 15:37] VITALS: BP 111/72
--- NOTE | 2023-11-02 07:49 | W.DCSUMMARY ---
Discharge Summary
Discharge Data
Date of Admission: 10/26/23
Date of Discharge: 11/01/23
-
Pending Results: No
Hospital Course
Discharging Physician : Dr Donny Leija
Disposition : Home with home care
Primary care physician : Unknown
Principal Discharge diagnosis :
Acute hypoxic/hypercapnic respiratory failure
Ventilator dependent respiratory failure
Chronic obstructive pulmonary disease flareup
Troponin elevation
Nonobstructive coronary artery disease
Euvolemic hyponatremia
Hypertensive emergency
Chronic Discharge diagnosis :
Permanent atrial fibrillation
Hypothyroidism
Depression
Hospital Course :
Patient is a 77-year-old female with mentioned past medical history was brought in by EMS after having new onset shortness of breath for few days. Patient was provided nitro and full-strength aspirin by EMS staff. Patient was noted to having
significant wheezing in ER needing IV Decadron/inhaler and BiPAP therapy. Chest x-ray showing pulmonary edema. Patient had worsening respiratory distress in ER and was electively intubated. Patient had a follow-up CT chest which showed no PE and
significant pulmonary infiltrate. Patient was felt to having COPD flareup and resultant respiratory distress. After 48 hours of vent support patient was able to be extubated. Post extubation patient was maintained on IV steroids which were
tapered off after improvement in hypoxia/hypercapnia. At discharge patient provided short course of tapered steroid and follow-up in pulmonology office.
For patient complaint of initial chest pain serial troponin was done and noted to having new elevation. Echocardiogram showing midrange EF of 43% with ventricular wall hypokinesis and upper ankle akinesis. Postextubation cardiology discussed plan
for diagnostic heart cath. Patient had an uneventful left heart cath on 10/29 showing nonobstructive coronary disease. Cardiology recommended medical management with aspirin/statin therapy.
Patient also had euvolemic hyponatremia. Improved with fluid restriction and discontinuation of SSRI. Follow-up prescription for BMP has been provided and patient will require follow-up with nephrology if not improved.
Patient discharged home post medical improvement.
Important imaging findings :
None
Procedure findings :
None
Discharge Plan
-
Patient Disposition: Home (Routine Discharge)
Discharge Diagnosis/Procedures: Hypoxic/hypercapnic respiratory failure, COPD flare up, Nonobstructive CAD, Euvolemic hyponatremia
Condition: Fair
Diet: 2 Gram Sodium and Restrict fluids to 48 oz
Activity: As tolerated
Driving Restrictions: No driving for 1 week
Bathing Restrictions: OK to Shower
Blood Work: BMP in 1 week
Other Services: VN and PT
Stand Alone Forms: DC Instructions- Cath/EP Lab
Referrals:
Sunday Mina MD [Active] - (Local pulmonary visit in 6 weeks post discharge at patient discretion)
UNKNOWN - PT DOES,NOT KNOW [Family Provider] -
Additional Discharge Medication Instructions: STOP taking Diltiazem - changed to Metoprolol. STOP taking Lexapro (Escitalopram) duet low sodium level.
Prescriptions:
New
aspirin 81 mg Tablet,Delayed Release (Dr/Ec)
81 mg PO DAILY Qty: 30 0RF
acetaminophen 325 mg Tablet
650 mg PO Q4HPRN PRN (Reason: mild pain) Qty: 30 0RF
metoprolol succinate 25 mg Tablet Extended Release 24 Hr
25 mg PO DAILY Qty: 30 1RF
lisinopril 2.5 mg Tablet
2.5 mg PO DAILY Qty: 30 1RF
ipratropium-albuterol 0.5 mg-3 mg(2.5 mg base)/3 mL solution for nebulization
3 ml inhalation Q8H PRN (Reason: shortness of breath) Qty: 90 0RF
prednisone 10 mg Tablet
See Rx Instructions .ROUTE .COMPLEX Qty: 12 0RF
Rx Instructions:
Take By Mouth:
30 mg daily x2 days,
20 mg daily x2 days, 10 mg daily x2 days.
Continued
atorvastatin 40 mg Tablet
40 mg PO DAILY
donepezil 10 mg Tablet
10 mg PO HS
levothyroxine 150 mcg Tablet
150 mcg PO DAILY
albuterol sulfate 90 mcg/actuation Hfa Aerosol Inhaler
2 puff INHALATION R Q4HPRN PRN (Reason: sob/wheezing)
Anoro Ellipta 62.5-25 mcg/actuation Blister With Device
1 inh INHALATION R DAILY
Discontinued
diltiazem HCl 180 mg Capsule,Extended Release 24 Hr
180 mg PO DAILY
escitalopram oxalate 20 mg Tablet
20 mg PO DAILY
Discharge Orders:
Discharge Patient (As Directed); Ordered 11/01/23
Ordered By: Donny Leija
Discharge Date and Time
Discharge Date/Time: 11/01/23 17:41
Print Language: PORTUGUESE
== END 2023-11-01 17:41 | disposition home or self-care (01) | DRG 208 ==
LOC: 3 WEST ACU 21:40
PROVIDERS: Clinical Nurse Specialist Family Health; Internal Medicine Critical Care Medicine; Internal Medicine Interventional Cardiology; Nurse Practitioner Family; Nurse Practitioner Primary Care; ADMITTING PHYSICIAN Internal Medicine; ATTENDING PHYSICIAN Hospitalist; CONSULT PHYSICIAN Internal Medicine Cardiovascular Disease; CONSULT PHYSICIAN Internal Medicine Critical Care Medicine; EMERGENCY PHYSICIAN Student in an Organized Health Care Education/Training Program
PROC: 5A09357 Assistance with Respiratory Ventilation, Less than 24 Consecutive Hours, Continuous Positive Airway Pressure (ICD-10-PCS; 2023-10-26)
PROC: 5A1935Z Respiratory Ventilation, Less than 24 Consecutive Hours (ICD-10-PCS; 2023-10-26)
PROC: 0BH17EZ Insertion of Endotracheal Airway into Trachea, Via Natural or Artificial Opening (ICD-10-PCS; 2023-10-26)
PROC: 4A023N7 Measurement of Cardiac Sampling and Pressure, Left Heart, Percutaneous Approach (ICD-10-PCS; 2023-10-30)
PROC: B2111ZZ Fluoroscopy of Multiple Coronary Arteries using Low Osmolar Contrast (ICD-10-PCS; 2023-10-30)
DX: J96.01 Acute respiratory failure with hypoxia (principal); I50.21 Acute systolic (congestive) heart failure; I21.A1 Myocardial infarction type 2; E87.29 Other acidosis; I16.1 Hypertensive emergency; E87.1 Hypo-osmolality and hyponatremia; I42.8 Other cardiomyopathies; J96.02 Acute respiratory failure with hypercapnia; I11.0 Hypertensive heart disease with heart failure; I44.7 Left bundle-branch block, unspecified; J43.2 Centrilobular emphysema; R73.9 Hyperglycemia, unspecified; D72.829 Elevated white blood cell count, unspecified; E78.5 Hyperlipidemia, unspecified; E03.9 Hypothyroidism, unspecified; F32.A Depression, unspecified; R74.01 Elevation of levels of liver transaminase levels; R78.89 Finding of other specified substances, not normally found in blood; I48.0 Paroxysmal atrial fibrillation; I25.10 Atherosclerotic heart disease of native coronary artery without angina pectoris; F17.200 Nicotine dependence, unspecified, uncomplicated; Z11.52 Encounter for screening for COVID-19; Z88.5 Allergy status to narcotic agent; Z88.8 Allergy status to other drugs, medicaments and biological substances; Z79.890 Hormone replacement therapy
CPT/HCPCS: 31500; 36600; 71045; 71275; 76937; 80048; 80053; 80061; 82330; 82805; 82962; 83036; 83605; 83735; 83880; 83930; 83935; 84132; 84300; 84302; 84439; 84443; 84478; 84484; 85025; 85027; 85610; 85730; 87040; 87502; 87811; 93005; 93306; 93458; 94002; 94003; 94640; 94644; 94660; 96365; 96366; 96367; 96375; 97163; 97166; 97530; 99152; 99153; 99291; C1894; Q9967

== ENCOUNTER 2023-11-15 06:22 | Inpatient (IN) | payer MEDICARE, OTHER, SELFPAY ==
[2023-11-14] VITALS (7 sets, daily range): BP systolic 108–158; BP diastolic 59–88; BMI 23.4
--- NOTE | 2023-11-14 17:48 | ED.GENMED ---
History of Present Illness
General
Chief Complaint: Breathing Problem
Source: patient
Exam Limitations: none
Time Seen by Provider: 11/14/23 17:34
Nursing documentation reviewed up to this point in time: agreed with
Travel History
Have you had any contact with someone who has COVID-19?: Unable to Answer
Do you have any symptoms of coronavirus? Fever > 100 degrees, chills, cough, shortness of breath, sore throat, loss of taste or smell, muscle aches, or headache?: Unable to Answer
History of Present Illness
History of Present Illness:
Patient with history of COPD, presents to ED secondary to recurrent shortness of breath with cough over the past 24 hours. Patient was admitted and treated for similar symptoms 2 weeks ago. Since being discharged home, patient unfortunately admits
to having resumed smoking, which has been her trigger in the past. Denies chest pain. Denies nausea, vomiting, or diarrhea. Denies leg pain or swelling. Denies back pain.
Past History
Past History
ED Past Medical History: COPD and Hypothyroidism
ED Past Surgical History: Negative Cardiac
Social History
Tobacco: Former smoker
Alcohol: None
Drug: None
Personal: Single
Living: alone
Employment: Retired
Family History
Family History: Other (Noncontributory)
Review of Systems
Review of Systems
Allergies reviewed?: Yes
All Other Systems: ROS reviewed and negative except as documented in HPI and ROS
Constitutional: Reports no symptoms
EENT: Reports no symptoms
Respiratory: Reports cough and trouble breathing
Cardiac: Reports no symptoms; Denies chest pain
ABD/GI: Reports no symptoms; Denies nausea or vomiting
Musculoskeletal: Reports no symptoms
Skin: Reports no symptoms
Neurological: Reports no symptoms
Phy Exam
Physical Exam
Physical Exam:
Physical Exam
General: mild respiratory distress, not acutely ill. afebrile
Head: nc/at. eomi
Neck: supple. no meningeal signs.
Heart: s1/s2 regular rate and rhythm, no murmur. equal radial pulses.
Lungs: mild respiratory distress. diffuse expiratory wheezing bilaterally
Abdomen: normal bowel sounds. not tender.
Neuro: alert and oriented. no focal neurological deficits
Skin: no rash
Psychiatric: well kept. interactive and cooperative
Extremities: no edema. no calf tenderness.
Scores
Heart Failure Risk
Heart Failure Risk Score: Not Applicable
Course
Orders/Labs/Results
Orders:
Orders
11/14/23 Dinner
Regular
At Your Request: Full Participation
Does patient need a safe tray?: No
11/14/23 17:45
Albuterol Sulfate [Ventolin Nebules] 7.5 mg INH R NOW STA
Dexamethasone Sod Phosphate [Decadron] 10 mg IV NOW STA
Ipratropium Nebs [Atrovent Nebules] 0.5 mg INH R NOW STA
CR Chest Portable - 1 View Urgent
Comment:
Reason For Exam: sob
Reason Study Needs to be Portable: Patient Unstable
11/14/23 17:57
Complete Blood Count/With Diff Urgent
Comprehensive Metabolic Panel Urgent
Magnesium Urgent
11/14/23 20:06
Admit/Transfer Patient As Directed
Co-Sign Provider:
Level of Care: Observation services
Assign to:: Medical/Surgical
Physician / Group: ligia
Diagnosis: copd exacerbation
Code Status As Directed
Resuscitation Status: Full Code
11/14/23 22:39
Acetaminophen [Tylenol] 650 mg PO Q4HPRN PRN
Donepezil HCl [Aricept] 10 mg PO HS
Ipratropium/Albuterol Sulfate [Duoneb] 3 ml INH R Q4HPRN PRN
Mirtazapine [Remeron] 7.5 mg PO HS
11/14/23 22:39
Activity As Directed
Activity Level: As Tolerated
Vital Signs As Directed
Frequency: Per unit guidelines
DX Deep Vein Thrombosis Video Routine
11/14/23 23:00
Flush (0.9% Sodium Chloride) [Flush (Nss)] See Dose Instructions IV PER PROTOCOL
11/15/23 00:00
Doxycycline Hyclate [Vibramycin] 100 mg 0.9% Sodium Chloride 250 ml [Nss] 250 ml IV Q12H
11/15/23 02:00
Dexamethasone Sod Phosphate [Decadron] 4 mg IV Q8H
11/15/23 05:14
Albuterol Nebs [Ventolin Nebules] 2.5 mg INH R Q4HPRN PRN
11/15/23 06:00
Levothyroxine [Synthroid] 150 mcg PO DAILY @ 0600
11/15/23 08:00
Albuterol Nebs [Ventolin Nebules] 2.5 mg INH R QID
Aspirin Low Dose EC [Aspir Low (Enteric Coated)] 81 mg PO DAILY
Atorvastatin [Lipitor] 40 mg PO DAILY
Guaifenesin [Mucinex] 600 mg PO Q12
Heparin 5,000 units SC Q12
Ipratropium/Albuterol Sulfate [Duoneb] 3 ml INH R QID
Lisinopril [Zestril] 2.5 mg PO DAILY
Metoprolol Xl [Toprol Xl] 25 mg PO DAILY
Olodaterol HCl [Striverdi Respimat] 2 puff INH R DAILY
Tiotropium Ruth 2.5 Mcg [Spiriva Respimat 2.5 Mcg] 2 puff INH R DAILY
11/15/23 17:57
NT-proBNP Urgent
Abnormal Lab Results
11/14/23
17:57
WBC 16.6 H 10^3/uL
(4.8-10.8)
MCHC 32.8 L g/dL
(33.0-37.0)
Abs Immat Gran (auto) 0.1 H 10^3/uL
(0-0.05)
Absolute Neuts (auto) 11.1 H 10^3/uL
(1.4-6.5)
Absolute Monos (auto) 1.1 H 10^3/uL
(0.1-0.6)
Absolute Eos (auto) 1.4 H 10^3/uL
(0-0.7)
Lymphocytes % 17.4 L %
(20.5-51.1)
Eosinophils % 8.2 H %
(0-6)
BUN 19 H mg/dl
(7-17)
Glucose 125 H mg/dl
(70-99)
AST 43 H U/L
(14-36)
ALT 36 H U/L
(0-35)
11/14/23 17:57
11/14/23 17:57
Vital Signs
Initial and Last Documented VS:
Initial Vital Signs
Temp Pulse Resp BP Pulse Ox
97.8 F 95 27 158/88 100
11/14/23 17:31 11/14/23 17:31 11/14/23 17:31 11/14/23 17:31 11/14/23 17:31
Last Documented Vital Signs
Temp Pulse Resp BP Pulse Ox
98.0 F 75 16 96/50 96
11/15/23 15:04 11/15/23 15:04 11/15/23 15:04 11/15/23 15:04 11/15/23 15:04
MDM/Problems Addressed
MDM/Problems Addressed:
Patient evaluated immediately upon arrival, secondary to hypoxia along with respiratory distress. History and exam consistent with likely recurrent COPD exacerbation, secondary to continual smoking. Patient started on 1 hour continuous nebulizer
treatment, with improvement symptoms. Patient still requiring 3 L of oxygen via nasal cannula. As such, patient will be admitted for further evaluation and treatment.
Critical care statement: A total of 40 minutes of critical care time was provided for this patient. This includes management of unstable vital signs, evaluation of the patient at bedside, reviewing the patient's pertinent medical records, review of
old EKGs and review of pertinent medical records. This time with separate from time utilized to perform the aforementioned documented procedures
*Critical Care Note
Total Time (30-74mins, 75-104mins- exclusive of procedures): 40 min
ED Attending Note
-
Portions of this chart may have been created with voice recognition software.� Occasional wrong word or��sound alike� substitutions may have occurred due to the inherent limitations of voice recognition software.
Discharge Plan
Departure
Patient Disposition: Admit
Date of Disposition: 11/14/23
Time of Disposition: 19:37
Admit to: Telemetry
Presentation/result/management discussed w/ accepting MD/DO: Hospitalist
Discharge Problem:
COPD exacerbation
Interventions
Interventions:
*Risk Screen - Suicide Last Done: 11/14/23 17:31
*General Assessment Last Done: 11/14/23 17:31
*Neglect/Abuse Screening Last Done: 11/14/23 17:31
ED- Fall Risk Assessment Last Done: 11/15/23 02:56
*ED COVID-19 Vaccine History Last Done: 11/14/23 17:31
*Nursing Disposition Last Done: 11/15/23 13:09
ED- Cardiac Assessment Last Done: 11/15/23 03:26
ED- Pulmonary Assessment Last Done: 11/15/23 03:26
Discharge Date and Time
Discharge Date/Time: 11/15/23 13:10
[2023-11-14] MEDS: ATROVENT NEBULES 0.5 MG INH (17:53)
[2023-11-14] MEDS: DECADRON 10 MG IV (17:53)
[2023-11-14] MEDS: VENTOLIN NEBULES 7.5 MG INH (17:53)
[2023-11-14 18:10] LABS: % Basophils 0.5 % (0-2); % Eosinophils 8.2 % (0-6); % Immature Granulocytes 0.5 % (0-0.5); % Lymphocytes 17.4 % (20.5-51.1); % Monocytes 6.8 % (1.7-9.3); % Neutrophils 66.6 % (42.2-75.2); Absolute Basophils 0.1 10^3/uL (0-0.2); Absolute Eosinophils 1.4 10^3/uL (0-0.7); Absolute Immature Granulocytes 0.1 10^3/uL (0-0.05); Absolute Lymphocytes 2.9 10^3/uL (1.2-3.4); Absolute Monocytes 1.1 10^3/uL (0.1-0.6); Absolute Neutrophils 11.1 10^3/uL (1.4-6.5); Hematocrit 41.1 % (37.0-47.0); Hemoglobin 13.5 g/dL (12.0-16.0); Mean Corp Hgb Conc. 32.8 g/dL (33.0-37.0); Mean Corpuscular Volume 88.2 fL (81.0-99.0); Mean Platelet Volume 9.1 fL (7.4-10.4); Nucleated Red Blood Cells % 0 %; Platelet Count 277 10^3/uL (130-400); Red Blood Cell Count 4.66 10^6/uL (4.20-5.40); Red Cell Dist. Width 14.1 % (11.5-14.5); White Blood Cell Count 16.6 10^3/uL (4.8-10.8)
[2023-11-14 18:30] LABS: ALT (SGPT) 36 U/L (0-35); AST (SGOT) 43 U/L (14-36); Albumin 4.5 g/dl (3.5-5.0); Alkaline Phosphatase 79 U/L (38-126); Blood Urea Nitrogen 19 mg/dl (7-17); Calcium 10.2 mg/dl (8.4-10.2); Carbon Dioxide 28 mmol/L (22-30); Chloride 106 mmol/L (98-107); Estimated Creatinine Clearance 72 ml/min; Glucose 125 mg/dl (70-99); Magnesium 2.2 mg/dl (1.6-2.3); Potassium 4.2 mmol/L (3.5-5.1); Sodium 141 mmol/L (135-145); Total Bilirubin 0.5 mg/dl (0.2-1.3); Total Protein 7.1 g/dl (6.3-8.2); eGFR > 60.00
--- NOTE | 2023-11-14 20:09 | HPS.HSE ---
Family Physician
-
Family Physician: NOT KNOW UNKNOWN - PT DOES
Chief Complaint
-
shortness of breath
History of Present Illness
77-year-old female past medical history of COPD, coronary artery disease, hyponatremia, persistent atrial fibrillation, hypertension, hypothyroidism, depression, presenting with shortness of breath since this afternoon. No significant amount of
cough. No chest pain. No fevers or chills. No lower extremity edema. No nausea vomiting or diarrhea.
Patient recently admitted a few weeks ago for COPD exacerbation quit smoking but restarted again after discharge. She smokes 2 to 3 cigarettes a day. She denies alcohol use.
Medical History
Past Medical History
Past Medical History: Reports Other (COPD, coronary artery disease, hyponatremia, persistent atrial fibrillation, hypertension, hypothyroidism, depression)
Past Surgical History: Reports None
Social History
Tobacco: Smoker
Alcohol: None
Drug: None
Family History
Family History: Not pertinent
Allergies / Home Medications
Allergies reflects when Allergies were last updated in [facility].
Home Medications with original date entered in [facility]
Allergy/Medication List:
Allergies
Allergy/AdvReac Type Severity Reaction Status Date / Time
codeine Allergy Unknown Verified 05/06/23 17:33
meperidine [From Demerol] Allergy Unknown Verified 05/06/23 17:33
Home Medications
albuterol sulfate 90 mcg/actuation aerosol inhaler 2 puff inhalation R Q4HPRN PRN sob/wheezing 10/26/23
atorvastatin 40 mg tablet 40 mg PO DAILY High Cholesterol 10/26/23
donepezil 10 mg tablet 10 mg PO HS Memory 10/26/23
levothyroxine 150 mcg tablet 150 mcg PO DAILY Thyroid 10/26/23
umeclidinium 62.5 mcg-vilanterol 25 mcg/actuation powdr for inhalation (Anoro Ellipta) 1 inh inhalation R DAILY COPD 10/26/23
acetaminophen 325 mg tablet 650 mg (2 x 325 mg) PO Q4HPRN PRN mild pain #30 tabs 11/01/23
aspirin 81 mg tablet,delayed release 81 mg PO DAILY #30 tabs 11/01/23
lisinopril 2.5 mg tablet 2.5 mg PO DAILY #30 tabs 11/01/23
metoprolol succinate 25 mg tablet,extended release 24 hr 25 mg PO DAILY #30 tabs 11/01/23
ipratropium 0.5 mg-albuterol 3 mg (2.5 mg base)/3 mL nebulization soln 3 ml inhalation R Q8HPRN PRN shortness of breath 11/14/23
mirtazapine 15 mg tablet 7.5 mg PO HS 11/14/23
omega-3 fatty acids-fish oil 684 mg-1,200 mg capsule,delayed release 1 cap PO DAILY 11/14/23
Review of Systems
-
History Source: Patient
A 12 point ROS was completed and negative except as noted: Yes
Constitutional: Reports No Symptoms
EENT: Reports No Symptoms
Respiratory: Reports See HPI
Cardiac: Reports No Symptoms
Abdomen/GI: Reports No Symptoms
: Reports No Symptoms
Musculoskeletal: Reports No Symptoms
Skin: Reports No Symptoms
Neurological: Reports No Symptoms
Endocrine: Reports No Symptoms
Hematologic/Lymphatic: Reports No Symptoms
Psych: Reports No Symptoms
Physical Exam
Vital Signs
Vital Signs
Temp Pulse Resp BP Pulse Ox
97.8 F 93 23 113/60 94
11/14/23 17:31 11/14/23 19:36 11/14/23 19:36 11/14/23 19:36 11/14/23 19:36
Physical Exam
General: Well Developed, Well Nourished and No Apparent Distress
HEENT: NormoCephalic, Moist mucous membranes and Atraumatic
Respiratory: Wheezes
Cardiac: S1/S2 and Regular Rhythm; No Murmur or Rub
GI: Soft, Non Tender, Non Distended and Normal Bowel Sounds; No Organomegaly
Rectal: Deferred by Provider
Musculoskeletal: No Clubbing, No Cyanosis and No Edema
Skin: No Rash
Neuro: Nonfocal/grossly intact
Laboratory Results
-
11/14/23 17:57
11/14/23 17:57
Laboratory Results
Total Bilirubin 0.5 mg/dl (0.2-1.3) 11/14/23 17:57
AST 43 U/L (14-36) H 11/14/23 17:57
ALT 36 U/L (0-35) H 11/14/23 17:57
Alkaline Phosphatase 79 U/L (38-126) 11/14/23 17:57
Data Reviewed
-
Lab Data: Labs Reviewed by me
Old Records: Reviewed
Impression/Plan
-
IMPRESSION:
PLAN:
# COPD exacerbation
# Active smoker
-Significant wheezing on examination
-Chest x-ray unremarkable
-Requiring 3 L oxygen
-DuoNebs every 6 hours
-Dexamethasone 4 mg every 8
-Continue Anoro Ellipta
-Doxycycline
Nonobstructive coronary artery disease
-Continue aspirin, statin
Possible history of atrial fibrillation
-Continue metoprolol
-Not on anticoagulation
Essential hypertension
-Continue lisinopril
Hypothyroidism
-Continue levothyroxine
Anxiety/depression
-Continue mirtazapine
Dementia
-Continue donepezil
Full code
DVT prophylaxis�heparin
Regular diet
[2023-11-15] VITALS (11 sets, daily range): BP systolic 96–127; BP diastolic 50–82; PULSE 85; O2SAT 94; BMI 22.7; BMI 24.0
[2023-11-15] MEDS: ARICEPT 10 MG PO ×2 (00:06→22:06)
[2023-11-15] MEDS: VIBRAMYCIN 260 MG IV ×2 (00:06→12:31)
[2023-11-15] MEDS: REMERON 7.5 MG PO ×2 (00:06→22:06)
[2023-11-15] MEDS: DECADRON 4 MG IV ×2 (02:07→14:07)
--- NOTE | 2023-11-15 06:04 | EDRN ---
Called pharmacy for synthroid
[2023-11-15] MEDS: SPIRIVA RESPIMAT 2.5 MCG 2 PUFF INH (07:52)
[2023-11-15] MEDS: STRIVERDI RESPIMAT 2 PUFF INH (07:52)
[2023-11-15] MEDS: VENTOLIN NEBULES 2.5 MG INH ×4 (07:52→19:46)
[2023-11-15] MEDS: SYNTHROID 150 MCG PO (09:56)
[2023-11-15] MEDS: MUCINEX 600 MG PO ×2 (09:57→20:15)
[2023-11-15] MEDS: TOPROL XL 25 MG PO (09:57)
[2023-11-15] MEDS: HEPARIN 5000 UNITS SC ×2 (09:57→20:15)
[2023-11-15] MEDS: ASPIR LOW (ENTERIC COATED) 81 MG PO (09:57)
[2023-11-15] MEDS: ZESTRIL 2.5 MG PO (09:59)
--- NOTE | 2023-11-15 10:24 | W.PN.HOSP.TC ---
Today's Communication/Plan
-
wean steroids
DC planning
Assessment / Plan
Assessment / Plan
# Acute COPD exacerbation suspect the trigger is seasonal allergies.
# Active smoker
- No wheezing today and clinically has improved. Wean steroids and watch for another day and discharge in a.m. if continued improvement. Chest x-ray without any evidence of pneumonia. Clinically no CHF decompensation. Suspect white count
elevation may be reactive. Follow for now. Currently on room air
.-DuoNebs every 6 hours
-Dexamethasone 4 mg every 8
-Continue Anoro Ellipta
- Rapid de-escalation of abx if cx neg
- patient is trying antihistamines for allergies. Advised Flonase.
Nonobstructive coronary artery disease
-Continue aspirin, statin
Possible history of atrial fibrillation
-Continue metoprolol
-Not on anticoagulation
Essential hypertension
-Continue lisinopril
Hypothyroidism
-Continue levothyroxine
Anxiety/depression
-Continue mirtazapine
Dementia
-Continue donepezil
Full code
DVT prophylaxis�heparin
Regular diet
Anticipated Discharge: Within 24 hours
Subjective/Interval History
-
Date of Service: November 15, 2023
Patient feels much improved today.
Post discharge she was feeling okay with the breathing standpoint. Has not gotten a chance to see her blueprint developer in follow-up yet. Her blueprint developer at [facility].
Unfortunately she still smoking few cigarettes a day.
Breathing changed acutely yesterday. Prior to that, for the last 2 to 3 days she started to have runny nose and itchy eyes. Had pollen allergy in the past but never used to bad. She was washing her eyes and blowing out her nose.
No chest pain or palpitations.
No fever or chills.
Not much of cough.
Objective Data
-
Vital Signs:
Vital Signs
Temp Pulse Resp BP Pulse Ox
97.7 F 86 18 112/56 90
11/15/23 02:06 11/15/23 09:59 11/15/23 07:58 11/15/23 09:59 11/15/23 07:58
Review of Systems
-
Constitutional: Denies Fever
EENT: Denies Sore Throat
Abdomen/GI: Denies Abdominal Pain, Nausea or Vomiting
Neuro: Denies Dizzy
Physical Exam
-
General: No Apparent Distress
HEENT: Moist Mucous Membranes
Respiratory: Clear to Auscultation and Non Labored Respirations; Negative Wheezes, Crackles or Accessory Resp Muscle Use
Cardiac: Regular Rhythm and S1/S2; Negative JVD
Musculoskeletal: No Edema
Neuro: AO x 3
Data Reviewed
-
Labs: Labs Reviewed by me
[2023-11-15] MEDS: LIPITOR PO (10:55)
[2023-11-15 11:37] LABS: NT-proBNP 1790 pg/ml
[2023-11-15] MEDS: DECADRON IV (14:33)
--- NOTE | 2023-11-15 16:16 | CON.PUL ---
Consultation
Consultation Request
Date/Time Consultation Requested: 11/14
Date/Time Consultation Performed: 11/14
Reason for Consultation: COPD exacerbation
Medical History
-
History of Present Illness:
History obtained from the patient and also from the chart. 77-year-old female with history of COPD status post recent discharge 11/02/2023. Patient was instructed to follow-up with pulmonary within 2 weeks, but failed to follow-up. She states she
was doing well, but did notice that once off her steroid taper, symptoms returned which included chest tightness, progression of cough. She denies hemoptysis, fevers, lightheadedness, dizziness, nausea, sick contacts. Unfortunate she continues to
smoke. Upon arrival to [facility], afebrile, pulse 95, breathing at 27, blood pressure 158/88, 100% saturation. Patient required 3 L for 100% saturation. Significant wheezing noted on exam, patient required hour-long nebulizer, steroids.
Received doxycycline. We are asked to help from pulmonary standpoint 11/15/2023
Presently she is feeling much improved, less chest congestion, less short of breath, no use of accessory muscles
.
PMH: Suspected severe COPD, hypercapnia/hypoxia requiring VDRF October 2023, history of heart failure, left bundle branch block, hyperglycemia, hypertension
Past Medical History
Past Medical History: None (See above)
Past Surgical History: None (See above)
Social History
Tobacco: Smoker ([id number], quit for a while, now back to smoking cigarettes a day)
Alcohol: None
Drug: None
Personal: Single
Living: Alone
Employment: Not Employed
Family History
Family History: Reviewed & Not Pertinent
Allergies / Home Medications
Allergies
Allergy/AdvReac Type Severity Reaction Status Date / Time
codeine Allergy Unknown Verified 05/06/23 17:33
meperidine [From Demerol] Allergy Unknown Verified 05/06/23 17:33
Home Medications
�Medication �Instructions �Recorded �Confirmed �Last Taken �Type
albuterol sulfate 90 mcg/actuation 2 puff inhalation R Q4HPRN PRN 10/26/23 11/14/23 Unknown History
aerosol inhaler sob/wheezing
atorvastatin 40 mg tablet 40 mg PO DAILY High Cholesterol 10/26/23 11/14/23 11/14/23 History
donepezil 10 mg tablet 10 mg PO HS Memory 10/26/23 11/14/23 11/13/23 History
levothyroxine 150 mcg tablet 150 mcg PO DAILY Thyroid 10/26/23 11/14/23 11/14/23 History
umeclidinium 62.5 mcg-vilanterol 1 inh inhalation R DAILY COPD 10/26/23 11/14/23 11/14/23 History
25 mcg/actuation powdr for
inhalation (Anoro Ellipta)
acetaminophen 325 mg tablet 650 mg (2 x 325 mg) PO Q4HPRN PRN 11/01/23 11/14/23 Unknown Rx
mild pain #30 tabs
aspirin 81 mg tablet,delayed 81 mg PO DAILY #30 tabs 11/01/23 11/14/23 11/14/23 Rx
release
lisinopril 2.5 mg tablet 2.5 mg PO DAILY #30 tabs 11/01/23 11/14/23 11/14/23 Rx
metoprolol succinate 25 mg 25 mg PO DAILY #30 tabs 11/01/23 11/14/23 11/14/23 Rx
tablet,extended release 24 hr
ipratropium 0.5 mg-albuterol 3 mg 3 ml inhalation R Q8HPRN PRN 11/14/23 11/14/23 11/14/23 15:30 History
(2.5 mg base)/3 mL nebulization shortness of breath
soln
mirtazapine 15 mg tablet 7.5 mg PO HS Depression/Sleep 11/14/23 11/14/23 11/13/23 History
omega-3 fatty acids-fish oil 684 1 cap PO DAILY Supplement 11/14/23 11/14/23 11/14/23 History
mg-1,200 mg capsule,delayed release
Review of Systems
-
All other systems: Negative unless noted
Vitals / Labs / Diagnostic Testing
Vital Signs
Temp Pulse Resp BP Pulse Ox
98.0 F 75 16 96/50 94
11/15/23 15:04 11/15/23 15:04 11/15/23 15:25 11/15/23 15:04 11/15/23 15:25
Lab Data
11/14/23 17:57
11/14/23 17:57
Diagnostic Testing:
Physical Exam
-
HEENT: Normocephalic and Anicteric
Cardiovascular: S1/S2, Regular Rhythm, Murmur (n), Rub (n), Peripheral Edema (n) and Calf Tenderness (n)
Respiratory: Wheeze (Few scattered), Rales (n), Rhonchi (n) and Non-Labored Respirations
GI: Soft, Non Distended and Non Tender
Neurology: Awake, Alert and No Motor Deficits
Skin: Good Color and Other (No clubbing, no cyanosis)
Assessment
-
77-year-old female with history of suspected COPD, 35 pack years of smoking, ongoing, recently hospitalized requiring mechanical ventilation/intubation 10/27/2023, discharged 11/02/2023, with recurrence of symptoms after being tapered off steroids.
Patient admitted for recurrent COPD exacerbation 11/14/2023
Acute COPD exacerbation
Leukocytosis
Recent Acute hypercapnic/hypoxic respiratory failure
Intubated 10/26/23
Discharged 11/02/2023
Left bundle branch block, tachycardia
Hyponatremia
Hyperglycemia
Elevated lactate
Mild acute transaminitis
Elevated troponin, mildly elevated proBNP
s/p LHC 10/30/2023: Nonobstructive coronary disease, elevated LVEDP
Plan/recommendations
At this time, patient appears to be improved since admission
Still with decreased breath sounds, poor air movement, scattered wheezing
Patient without use of accessory muscles.
Chest x-ray without acute findings. Significant hyperinflation noted
Unfortunate patient continues to smoke
Moving forward
Continue steroids for now. She will require slow taper at the time of discharge
Nebulized therapy, patient does have nebulizer and is taking Anoro as outpatient. Will likely require something stronger
Trelegy or Breztri. This can be addressed as outpatient
Currently on Striverdi/Spiriva
Presently on doxycycline. Low threshold to discontinue
Empiric [id number] nebulized therapy, albuterol for now
Strongly encouraged tobacco cessation. Spent greater than 3 minutes discussing the importance of this.
DVT prophylaxis: Remains on heparin drip
GI prophylaxis: On pantoprazole
Will require follow-up in the office within 1 to 2 weeks
[2023-11-15] MEDS: VIBRAMYCIN 100 MG PO (20:15)
[2023-11-16] MEDS: DECADRON 4 MG IV ×2 (01:17→13:06)
[2023-11-16] MEDS: SYNTHROID 150 MCG PO (05:24)
[2023-11-16 07:00] VITALS: BP 121/66
[2023-11-16 07:07] LABS: Hematocrit 38.9 % (37.0-47.0); Hemoglobin 12.8 g/dL (12.0-16.0); Mean Corp Hgb Conc. 32.9 g/dL (33.0-37.0); Mean Corpuscular Hgb 29.3 pg (27.0-31.0); Mean Platelet Volume 9.1 fL (7.4-10.4); Platelet Count 210 10^3/uL (130-400); Red Blood Cell Count 4.37 10^6/uL (4.20-5.40); Red Cell Dist. Width 14.1 % (11.5-14.5); White Blood Cell Count 14.3 10^3/uL (4.8-10.8)
[2023-11-16] MEDS: VIBRAMYCIN 100 MG PO ×2 (07:37→20:00)
[2023-11-16] MEDS: LIPITOR 40 MG PO (07:37)
[2023-11-16] MEDS: HEPARIN 5000 UNITS SC ×2 (07:37→20:01)
[2023-11-16] MEDS: ASPIR LOW (ENTERIC COATED) 81 MG PO (07:37)
[2023-11-16] MEDS: MUCINEX 600 MG PO ×2 (07:37→20:01)
[2023-11-16] MEDS: ZESTRIL 2.5 MG PO (07:41)
[2023-11-16] MEDS: TOPROL XL 25 MG PO (07:42)
[2023-11-16 07:45] VITALS: BMI 23.7
[2023-11-16] MEDS: STRIVERDI RESPIMAT 2 PUFF INH (08:27)
[2023-11-16] MEDS: SPIRIVA RESPIMAT 2.5 MCG 2 PUFF INH (08:27)
[2023-11-16] MEDS: VENTOLIN NEBULES 2.5 MG INH ×4 (08:27→20:39)
--- NOTE | 2023-11-16 13:59 | CM ---
Patient seen bedside with daughter, Dary, initial assessment completed. Patient resides independently in a first floor apartment, denies DME other than grab bars in bathroom. Patient ambulates independently, denies VN or SNF history. Patient
reports PCP is Dr. Alicia through [facility], pharmacy [facility], unsure if she has prescription coverage. Patient denies food insecurities at home. Per PT, no skilled need. CM will continue to follow for discharge planning
needs.
Plan; home no needs likely.
--- NOTE | 2023-11-16 15:01 | W.PN.HOSP.TC ---
Today's Communication/Plan
-
Repeat Troponins
Wean steroids per pulm
Assessment / Plan
Assessment / Plan
# Acute COPD exacerbation suspect the trigger is seasonal allergies.
# Active smoker
- Improved. Chest x-ray without any evidence of pneumonia. Clinically no CHF decompensation.- wt is much lower compared to baseline, BNP lower too.Suspect white count elevation may be reactive. Follow for now. Currently on room air
.-DuoNebs every 6 hours
-Dexamethasone 4 mg every 8 -wean per pulm
-Continue Anoro Ellipta
- Rapid de-escalation of abx if cx neg
- patient is trying antihistamines for allergies. Advised Flonase.
Nonobstructive coronary artery disease
-Continue aspirin, statin
Abnormal Troponin - indeterminate range elevation noted. Patient without chest pain. Repeat again. suspect non ischemic Myocardial injury from COPD flare.
Possible history of atrial fibrillation
-Continue metoprolol
-Not on anticoagulation
Essential hypertension
-Continue lisinopril
Hypothyroidism
-Continue levothyroxine
Anxiety/depression
-Continue mirtazapine
Dementia
-Continue donepezil
Full code
DVT prophylaxis�heparin
Regular diet
Anticipated Discharge: 24 - 48 hours
Subjective/Interval History
-
Date of Service: November 16, 2023
feeling improved with less shortness of breath. pt says walking around the unit without trouble with chest pain or shortness of breath
Objective Data
-
Labs:
Laboratory Results
11/16/23
06:32
WBC 14.3 H
Hgb 12.8
Hct 38.9
Plt Count 210 D
Vital Signs:
Vital Signs
Temp Pulse Resp BP Pulse Ox
98.1 F 77 18 121/66 98
11/16/23 07:00 11/16/23 11:34 11/16/23 11:34 11/16/23 07:41 11/16/23 08:29
I&O
11/15/23 11/16/23 11/17/23
06:59 06:59 06:59
Intake Total 240 / 240
Balance 240 / 240
Review of Systems
-
Constitutional: Denies Fever
EENT: Denies Sore Throat
Respiratory: Denies Cough
Abdomen/GI: Denies Abdominal Pain, Nausea or Vomiting
Neuro: Denies Dizzy
Physical Exam
-
General: No Apparent Distress
HEENT: Moist Mucous Membranes
Respiratory: Negative Wheezes
Cardiac: Regular Rhythm and S1/S2
GI: Soft
Neuro: AO x 3
Data Reviewed
-
Labs: Labs Reviewed by me
[2023-11-16 15:03] LABS: Troponin I 0.021 ng/ml
--- NOTE | 2023-11-16 15:11 | W.PN.PUL3 ---
Today's Communication / Plan
-
Transition to prednisone with a taper.
Continue nebulizer therapy
Doxycycline for 5 days
Smoking cessation encouraged
Outpatient follow-up with primary air brake adjuster
Sign off
Assessment
-
77-year-old female with history of suspected COPD, 35 pack years of smoking, ongoing, recently hospitalized requiring mechanical ventilation/intubation 10/27/2023, discharged 11/02/2023, with recurrence of symptoms after being tapered off steroids.
Patient admitted for recurrent COPD exacerbation 11/14/2023
Acute COPD exacerbation
Leukocytosis
Recent Acute hypercapnic/hypoxic respiratory failure
Intubated 10/26/23
Discharged 11/02/2023
Left bundle branch block, tachycardia
Hyponatremia
Hyperglycemia
Elevated lactate
Mild acute transaminitis
Elevated troponin, mildly elevated proBNP
s/p LHC 10/30/2023: Nonobstructive coronary disease, elevated LVEDP
Plan/recommendations
Clinically improved.
Not bronchospastic on exam
Denies shortness of breath
Oxygen has been weaned off.
Afebrile
-
Transition to prednisone with a slow taper, 40 mg and decrease by 10 mg every 72 hours to off.
Nebulized therapy, patient does have nebulizer and is taking Anoro as outpatient. Will likely require something stronger
Trelegy or Breztri. This can be addressed as outpatient
Currently on Striverdi/Spiriva
Presently on doxycycline. Complete total of 5 days.
Empiric [id number] nebulized therapy, albuterol while in the hospital
Strongly encouraged tobacco cessation.
DVT prophylaxis: Heparin subcu.
GI prophylaxis: On pantoprazole
Will require follow-up in the office within 1 to 2 weeks
Patient will follow up with her private air brake adjuster at [place], Dr. Salmeron
Subjective Data
-
Date of Service:
Date of Service: November 16, 2023
Chief Complaint: Pulmonary Follow Up (Acute COPD exacerbation)
Subjective:
Continues to have coughing and some shortness of breath
Review of Systems
General: Fever (n)
Cardiopulmonary: Dyspnea, Dyspnea on Exertion and Cough
Objective Data
Data Reviewed
Vital Signs / I&O / Oxygen:
Vital Signs
Temp Pulse Resp BP Pulse Ox
98.1 F 77 18 121/66 98
11/16/23 07:00 11/16/23 11:34 11/16/23 11:34 11/16/23 07:41 11/16/23 08:29
Intake and Output
11/15/23 11/16/23 11/17/23
06:59 06:59 06:59
Intake Total 240 / 240
Balance 240 / 240
SaO2 98
Nasal Cannula flow liters per 2
minute
Physical Exam
General: Respiratory Distress (none at rest)
HEENT: Normocephalic
Cardiovascular: S1-S2
Respiratory: Wheeze (expiratory)
GI: Soft and Non Distended
Neurology: Awake and Oriented
Skin: Warm
Labs/Micro/Reports
Lab Data
11/16/23 06:32
11/14/23 17:57
[2023-11-16 18:36] VITALS: BP 108/65
[2023-11-16 20:46] LABS: Troponin I 0.017 ng/ml
[2023-11-16] MEDS: ARICEPT 10 MG PO (21:32)
[2023-11-16] MEDS: REMERON 7.5 MG PO (21:32)
[2023-11-16 23:00] VITALS: BP 111/47
[2023-11-17] MEDS: SYNTHROID 150 MCG PO (06:00)
[2023-11-17 07:00] VITALS: BP 124/72
[2023-11-17] MEDS: VENTOLIN NEBULES 2.5 MG INH ×2 (08:12→11:48)
[2023-11-17] MEDS: STRIVERDI RESPIMAT 2 PUFF INH (08:13)
[2023-11-17] MEDS: SPIRIVA RESPIMAT 2.5 MCG 2 PUFF INH (08:13)
[2023-11-17] MEDS: ZESTRIL 2.5 MG PO (08:16)
[2023-11-17] MEDS: ASPIR LOW (ENTERIC COATED) 81 MG PO (08:16)
[2023-11-17] MEDS: MUCINEX 600 MG PO (08:16)
[2023-11-17] MEDS: VIBRAMYCIN 100 MG PO (08:16)
[2023-11-17] MEDS: LIPITOR 40 MG PO (08:16)
[2023-11-17] MEDS: TOPROL XL 25 MG PO (08:16)
[2023-11-17] MEDS: DELTASONE 40 MG PO (08:16)
[2023-11-17] MEDS: HEPARIN 5000 UNITS SC (08:17)
--- NOTE | 2023-11-17 10:21 | CM ---
Patient seen bedside, reports she is hopeful to go home today. CM reviewed IMM with patient, signed, placed in chart. CM will continue to follow for discharge planning needs.
Plan; home no needs.
--- NOTE | 2023-11-17 11:44 | W.PN.HOSP.TC ---
Today's Communication/Plan
-
DC
Assessment / Plan
Assessment / Plan
# Acute COPD exacerbation suspect the trigger is seasonal allergies.
# Active smoker
- Improved. Chest x-ray without any evidence of pneumonia. Clinically no CHF decompensation.- wt is much lower compared to baseline, BNP lower too.Suspect white count elevation may be reactive. Follow for now. Currently on room air
- Dexamethasone 4 mg every 8 -wean per pulm- now on oral Pred
-Continue Anoro Ellipta
- Doxy for 5 days in total
- patient is trying antihistamines for allergies. Advised Flonase.
Nonobstructive coronary artery disease
-Continue aspirin, statin
Abnormal Troponin - indeterminate range elevation noted. Patient without chest pain. Repeat again normal range. suspect non ischemic Myocardial injury from COPD flare.
Possible history of atrial fibrillation
-Continue metoprolol
-Not on anticoagulation
Essential hypertension
-Continue lisinopril
Hypothyroidism
-Continue levothyroxine
Anxiety/depression
-Continue mirtazapine
Dementia
-Continue donepezil
Full code
DVT prophylaxis�heparin
Regular diet
Medially stable for dc today
Anticipated Discharge: Today
Subjective/Interval History
-
Date of Service: November 17, 2023
Patient feels improved. Denies any cough today. Denies any shortness of breath. No chest pain.
Objective Data
-
Vital Signs:
Vital Signs
Temp Pulse Resp BP Pulse Ox
97.7 F 73 16 124/72 96
11/17/23 07:00 11/17/23 08:17 11/17/23 08:17 11/17/23 07:00 11/17/23 08:17
I&O
11/16/23 11/17/23 11/18/23
06:59 06:59 06:59
Intake Total 240 / 240 1180 / 1180
Balance 240 / 240 1180 / 1180
Review of Systems
-
Constitutional: Denies Fever
EENT: Denies Sore Throat
Neuro: Denies Dizzy
Physical Exam
-
General: No Apparent Distress
HEENT: Moist Mucous Membranes
Respiratory: Clear to Auscultation and Non Labored Respirations; Negative Wheezes, Crackles or Accessory Resp Muscle Use
Cardiac: Regular Rhythm and S1/S2
Neuro: AO x 3
Data Reviewed
-
Labs: Labs Reviewed by me
--- NOTE | 2023-11-17 11:50 | W.DS.TRANS ---
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
-
Discharge Instructions:
Discharge Diagnosis/Procedures COPD exacerbation
Diet Regular
Activity As tolerated
Driving Restrictions As prior to admission
Bathing Restrictions None
Instructions:
Stand-Alone Forms:
Changes to Home Medications: Yes
Discharge Medications:
DC Medications w/original date entered in codetag
albuterol sulfate 90 mcg/actuation aerosol inhaler 2 puff inhalation R Q4HPRN PRN sob/wheezing 10/26/23
atorvastatin 40 mg tablet 40 mg PO DAILY High Cholesterol 10/26/23
donepezil 10 mg tablet 10 mg PO HS Memory 10/26/23
levothyroxine 150 mcg tablet 150 mcg PO DAILY Thyroid 10/26/23
umeclidinium 62.5 mcg-vilanterol 25 mcg/actuation powdr for inhalation (Anoro Ellipta) 1 inh inhalation R DAILY COPD 10/26/23
acetaminophen 325 mg tablet 650 mg (2 x 325 mg) PO Q4HPRN PRN mild pain #30 tabs 11/01/23
aspirin 81 mg tablet,delayed release 81 mg PO DAILY #30 tabs 11/01/23
lisinopril 2.5 mg tablet 2.5 mg PO DAILY #30 tabs 11/01/23
metoprolol succinate 25 mg tablet,extended release 24 hr 25 mg PO DAILY #30 tabs 11/01/23
ipratropium 0.5 mg-albuterol 3 mg (2.5 mg base)/3 mL nebulization soln 3 ml inhalation R Q8HPRN PRN shortness of breath 11/14/23
mirtazapine 15 mg tablet 7.5 mg PO HS Depression/Sleep 11/14/23
omega-3 fatty acids-fish oil 684 mg-1,200 mg capsule,delayed release 1 cap PO DAILY Supplement 11/14/23
doxycycline hyclate 100 mg tablet 100 mg PO BID #6 tabs 11/17/23
prednisone 10 mg tablet 10 mg PO DIRECTED #20 tabs 11/17/23
Home Medication Changes
New medication-prednisone taper, doxycycline
Pending Results: No
[2023-11-17 13:00] VITALS: BP 120/72
--- NOTE | 2023-11-17 16:36 | W.DCSUMMARY ---
Discharge Summary
Discharge Data
Date of Admission: 11/15/23
Date of Discharge: 11/17/23
-
Pending Results: No
Hospital Course
Primary diagnosis:
Acute chronic obstructive pulmonary disease exacerbation
Active smoker
Secondary diagnosis:
Nonobstructive coronary artery disease
Nonischemic myocardial injury
History of atrial fibrillation
Essential hypertension
Hypothyroidism
Hospital course:
Patient is an active smoker and has a history of able COPD presented with another exacerbation. Suspected seasonal allergies as a trigger. She unfortunately persist to smoke which could be playing a role. No evidence of pneumonia with chest
x-ray. No evidence of CHF decompensation. Had troponin 0.1 peak -suspected secondary to nonischemic myocardial injury from COPD flare. She did well with steroids. Was seen by pulmonary. Once stable she was discharged back home. She was not
hypoxic during the stay here. She was advised strongly to quit smoking.
Consultants on board:
Pulmonary-Dr. Mina
Discharge Plan
-
Patient Disposition: Home (Routine Discharge)
Discharge Diagnosis/Procedures: COPD exacerbation
Diet: Regular
Activity: As tolerated
Driving Restrictions: As prior to admission
Bathing Restrictions: None
Referrals:
UNKNOWN - PT DOES,NOT KNOW [Family Provider] - in less than 1 week (See PCP )
Prescriptions:
New
prednisone 10 mg tablet
10 mg PO DIRECTED Qty: 20 0RF
Rx Instructions:
40mg daily for 2 days and taper by 10mg every two days
doxycycline hyclate 100 mg tablet
100 mg PO BID Qty: 6 0RF
Continued
atorvastatin 40 mg Tablet
40 mg PO DAILY
donepezil 10 mg Tablet
10 mg PO HS
levothyroxine 150 mcg Tablet
150 mcg PO DAILY
albuterol sulfate 90 mcg/actuation Hfa Aerosol Inhaler
2 puff INHALATION R Q4HPRN PRN (Reason: sob/wheezing)
Anoro Ellipta 62.5-25 mcg/actuation Blister With Device
1 inh INHALATION R DAILY
aspirin 81 mg Tablet,Delayed Release (Dr/Ec)
81 mg PO DAILY Qty: 30 0RF
acetaminophen 325 mg Tablet
650 mg PO Q4HPRN PRN (Reason: mild pain) Qty: 30 0RF
metoprolol succinate 25 mg Tablet Extended Release 24 Hr
25 mg PO DAILY Qty: 30 1RF
lisinopril 2.5 mg Tablet
2.5 mg PO DAILY Qty: 30 1RF
mirtazapine 15 mg tablet
7.5 mg PO HS
Patient Comments:
11/14/2023: 'TAKE HALF A TABLET (7.5MG) AT BEDTIME FOR TWO WEEKS THEN INCREASE TO ONE FULL TABLET (15 MG).'
omega-3 fatty acids-fish oil 684-1,200 mg Capsule,Delayed Release(Dr/Ec)
1 cap PO DAILY
ipratropium-albuterol 0.5 mg-3 mg(2.5 mg base)/3 mL solution for nebulization
3 ml inhalation R Q8HPRN PRN (Reason: shortness of breath)
Discharge Orders:
Discharge Patient (As Directed); Ordered 11/17/23
Ordered By: Osmel Rea
Discharge Date and Time
Discharge Date/Time: 11/17/23 13:22
Print Language: MALAYSIAN
== END 2023-11-17 13:22 | disposition home or self-care (01) | DRG 191 ==
LOC: 4 WEST ACU 06:22
PROVIDERS: ADMITTING PHYSICIAN Hospitalist; ATTENDING PHYSICIAN Internal Medicine; CONSULT PHYSICIAN Internal Medicine Critical Care Medicine; EMERGENCY PHYSICIAN Emergency Medicine
DX: J44.1 Chronic obstructive pulmonary disease with (acute) exacerbation (principal); E87.1 Hypo-osmolality and hyponatremia; F03.94 Unspecified dementia, unspecified severity, with anxiety; I5A Non-ischemic myocardial injury (non-traumatic); I48.19 Other persistent atrial fibrillation; F17.210 Nicotine dependence, cigarettes, uncomplicated; I25.10 Atherosclerotic heart disease of native coronary artery without angina pectoris; I50.9 Heart failure, unspecified; I11.0 Hypertensive heart disease with heart failure; E03.9 Hypothyroidism, unspecified; Z79.82 Long term (current) use of aspirin
CPT/HCPCS: 71045; 80053; 83735; 83880; 84484; 85025; 85027; 93005; 94640; 96374; 99285; 99406

== ENCOUNTER 2023-12-18 22:42 | Inpatient (IN) | payer MEDICARE, OTHER, SELFPAY ==
[2023-12-18 17:59] VITALS: BP 126/98
--- NOTE | 2023-12-18 18:03 | ED.PDOC.TR ---
ED Provider Triage
-
Patient seen by provider in Triage?: Seen in Triage
Patient seen in rapid assessment in triage to expedite patient care. 77-year-old female with history of COPD presenting with shortness of breath for the past 3 to 4 days. Has been using inhalers and nebulizers at home without relief. Typically
has room air saturations in the upper 90s at her [employer] office when she is not having an acute flareup. Denies fevers or chills. Will start with basic labs, chest x-ray,, order DuoNeb.
[2023-12-18 18:21] LABS: % Basophils 0.7 % (0-2); % Immature Granulocytes 0.3 % (0-0.5); % Lymphocytes 23.3 % (20.5-51.1); % Neutrophils 54.7 % (42.2-75.2); Absolute Basophils 0.1 10^3/uL (0-0.2); Absolute Eosinophils 1.4 10^3/uL (0-0.7); Absolute Lymphocytes 2.3 10^3/uL (1.2-3.4); Absolute Monocytes 0.7 10^3/uL (0.1-0.6); Absolute Neutrophils 5.3 10^3/uL (1.4-6.5); Hematocrit 42.1 % (37.0-47.0); Hemoglobin 14.5 g/dL (12.0-16.0); Mean Corp Hgb Conc. 34.4 g/dL (33.0-37.0); Mean Platelet Volume 8.8 fL (7.4-10.4); Nucleated Red Blood Cells % 0 %; Platelet Count 274 10^3/uL (130-400); Red Blood Cell Count 4.84 10^6/uL (4.20-5.40); Red Cell Dist. Width 14.4 % (11.5-14.5); White Blood Cell Count 9.7 10^3/uL (4.8-10.8)
[2023-12-18] MEDS: DUONEB 3 ML INH (18:26)
[2023-12-18 18:37] LABS: ALT (SGPT) 34 U/L (0-35); AST (SGOT) 45 U/L (14-36); Albumin 4.6 g/dl (3.5-5.0); Alkaline Phosphatase 65 U/L (38-126); Blood Urea Nitrogen 14 mg/dl (7-17); Calcium 10.9 mg/dl (8.4-10.2); Carbon Dioxide 29 mmol/L (22-30); Chloride 100 mmol/L (98-107); Glucose 146 mg/dl (70-99); Potassium 5.4 mmol/L (3.5-5.1); Sodium 138 mmol/L (135-145); Total Bilirubin 0.5 mg/dl (0.2-1.3); Total Protein 7.1 g/dl (6.3-8.2); eGFR > 60.00
[2023-12-18 20:04] VITALS: BMI 23.3
--- NOTE | 2023-12-18 20:16 | ED.GENMED ---
History of Present Illness
General
Chief Complaint: Breathing Problem
Source: patient, records and family
Exam Limitations: none
Time Seen by Provider: 12/18/23 19:38
Nursing documentation reviewed up to this point in time: agreed with
Travel History
Have you had any contact with someone who has COVID-19?: No
Do you have any symptoms of coronavirus? Fever > 100 degrees, chills, cough, shortness of breath, sore throat, loss of taste or smell, muscle aches, or headache?: No
History of Present Illness
History of Present Illness:
77-year-old female COPD not on oxygen is on inhalers, sees Dr. Ordoñez cough shortness of breath for few days with productive sputum no fevers, here she is sitting upright, wheezing, pulse ox 90--91% on room air, she is an ex smoker and used to
smoke least a pack a day
Past History
Past History
ED Past Medical History: COPD and Hypothyroidism
ED Past Surgical History: Negative Cardiac
Social History
Tobacco: Former smoker
Alcohol: None
Drug: None
Personal: Single
Living: alone
Employment: Retired
Family History
Family History: Other (Noncontributory)
Review of Systems
Review of Systems
All Other Systems: Not applicable
Constitutional: Denies fever or fatigue
Respiratory: Reports cough and trouble breathing
Cardiac: Reports no symptoms
ABD/GI: Reports no symptoms
: Reports no symptoms
Musculoskeletal: Reports no symptoms
Phy Exam
Physical Exam
Physical Exam:
Physical Exam
General: Sitting upright looks short of breath
Neck: No jaundice
Heart: s1/s2 regular rate and rhythm, no murmur. equal radial pulses.
Lungs: Bilateral wheeze and rhonchi
Abdomen: Not tender
Neuro: alert and oriented. no focal neurological deficits
Skin: no rash
Psychiatric: well kept. interactive and cooperative
Extremities: no edema. no calf tenderness.
Scores
Heart Failure Risk
Heart Failure Risk Score: Not Applicable
Course
Orders/Labs/Results
Orders:
Orders
12/18/23 18:04
Ipratropium/Albuterol Sulfate [Duoneb] 3 ml INH R NOW STA
12/18/23 18:05
CR Chest - 2 Views Urgent
Comment:
Reason For Exam: SOB
12/18/23 18:11
Complete Blood Count/With Diff Urgent
Comprehensive Metabolic Panel Urgent
12/18/23 20:07
Dexamethasone Sod Phosphate [Decadron] 10 mg IV NOW STA
O2 Therapy [RESP] Urgent
Nasal Cannula Liter Flow: 2 LPM
Titrate/Wean O2 to maintain O2 sat greater than (%): 95
12/18/23 20:34
Albuterol Nebs [Ventolin Nebules] 2.5 mg INH R NOW STA
12/18/23 21:01
ABG [Arterial Blood Gas] Urgent
%Oxygen/Room Air: 2l
Abnormal Lab Results
12/18/23
18:11
Absolute Monos (auto) 0.7 H 10^3/uL
(0.1-0.6)
Absolute Eos (auto) 1.4 H 10^3/uL
(0-0.7)
Eosinophils % 14.0 H %
(0-6)
Potassium 5.4 H mmol/L
(3.5-5.1)
Glucose 146 H mg/dl
(70-99)
Calcium 10.9 H mg/dl
(8.4-10.2)
AST 45 H U/L
(14-36)
12/18/23 18:11
12/18/23 18:11
Vital Signs
Initial and Last Documented VS:
Initial Vital Signs
Temp Pulse Resp BP Pulse Ox
98.4 F 86 22 126/98 91
12/18/23 17:59 12/18/23 17:59 12/18/23 17:59 12/18/23 17:59 12/18/23 17:59
Last Documented Vital Signs
Temp Pulse Resp BP Pulse Ox
98.4 F 84 25 108/83 99
12/18/23 17:59 12/18/23 20:44 12/18/23 20:30 12/18/23 20:44 12/18/23 20:30
MDM/Problems Addressed
Differential Diagnosis Includes:
COPD bronchitis pneumonia heart failure less likely PE or pneumothorax
MDM/Problems Addressed:
Shortness of breath
Chronic conditions affecting care: COPD
Acute Exacerbation and/or Progression of Chronic Illness: COPD
*Radiology
Radiology exam reviewed: radiology read reviewed
*Pulse Oximetry
Patient hypoxic: yes
*EKG
Interpreted by ED Provider?: Yes
Interpretation: abnormal
Comparison EKG: no comparison EKG present
Heart Rate: 78
Ischemia: non-specific ST changes
*Resistor Coater Interpretation
Rate: normal
Interpretation: normal
Heart Rate: 78
Rhythm: sinus
*Critical Care Note
Total Time (30-74mins, 75-104mins- exclusive of procedures): Not Applicable
Update Note
Update Note:
8:55 PM patient still wheezing given another neb she feels anxious, will check ABG to assess for hypercarbia chest x-ray noted
ED Attending Note
-
Portions of this chart may have been created with voice recognition software.� Occasional wrong word or��sound alike� substitutions may have occurred due to the inherent limitations of voice recognition software.
Discharge Plan
Departure
Patient Disposition: Admit
Date of Disposition: 12/18/23
Time of Disposition: 21:04
Presentation/result/management discussed w/ accepting MD/DO: Hospitalist
Patient with high blood pressure during this ER visit?: No
Condition: Fair
Discharge Problem:
COPD exacerbation, COPD with acute exacerbation
Prescriptions:
No Action
atorvastatin 40 mg Tablet
40 mg PO DAILY
donepezil 10 mg Tablet
10 mg PO HS
levothyroxine 150 mcg Tablet
150 mcg PO DAILY
albuterol sulfate 90 mcg/actuation Hfa Aerosol Inhaler
2 puff INHALATION R Q4HPRN PRN (Reason: sob/wheezing)
Anoro Ellipta 62.5-25 mcg/actuation Blister With Device
1 inh INHALATION R DAILY
aspirin 81 mg Tablet,Delayed Release (Dr/Ec)
81 mg PO DAILY Qty: 30 0RF
acetaminophen 325 mg Tablet
650 mg PO Q4HPRN PRN (Reason: mild pain) Qty: 30 0RF
metoprolol succinate 25 mg Tablet Extended Release 24 Hr
25 mg PO DAILY Qty: 30 1RF
lisinopril 2.5 mg Tablet
2.5 mg PO DAILY Qty: 30 1RF
mirtazapine 15 mg tablet
7.5 mg PO HS
Patient Comments:
11/14/2023: 'TAKE HALF A TABLET (7.5MG) AT BEDTIME FOR TWO WEEKS THEN INCREASE TO ONE FULL TABLET (15 MG).'
omega-3 fatty acids-fish oil 684-1,200 mg Capsule,Delayed Release(Dr/Ec)
1 cap PO DAILY
ipratropium-albuterol 0.5 mg-3 mg(2.5 mg base)/3 mL solution for nebulization
3 ml inhalation R Q8HPRN PRN (Reason: shortness of breath)
prednisone 10 mg tablet
10 mg PO DIRECTED Qty: 20 0RF
Rx Instructions:
40mg daily for 2 days and taper by 10mg every two days
doxycycline hyclate 100 mg tablet
100 mg PO BID Qty: 6 0RF
Interventions
Interventions:
*Risk Screen - Suicide Last Done: 12/18/23 17:59
*General Assessment Last Done: 12/18/23 20:03
*Neglect/Abuse Screening Last Done: 12/18/23 17:59
*ED COVID-19 Vaccine History Last Done: 12/18/23 17:59
Discharge Date and Time
Print Language: SPANISH
[2023-12-18] MEDS: DECADRON 10 MG IV (20:18)
[2023-12-18] MEDS: VENTOLIN NEBULES 2.5 MG INH (20:43)
[2023-12-18 20:44] VITALS: BP 108/83
[2023-12-18 21:00] VITALS: BP 139/75
--- NOTE | 2023-12-18 21:05 | HPS.HSE ---
Addendum entered and electronically signed by Bert Santana DO 12/18/23 22:57:
Patient seen and examined independently. Agree with findings and plan as set forth by Keri Salcedo PA-C.
Patient is a 77y F with PMH significant for ASCVD, CHF and COPD who presents to ED complaining of SOB. Patient states that dyspnea has been progressive over the past few days - much worse this afternoon. Mild cough productive of white / sesay
mucus. No fevers/ chills. No improvement in symptoms with home nebulizer.
Patient has been hospitalized 3 times in the past 3 months with similar symptoms. She continues to smoke 2-3 cigarettes per day.
Ass:
COPD with Acute Exacerbation
Acute Hypoxemic Respiratory Insufficiency
Mild Hyperkalemia
ASCVD
Chronic HFmrEF
Benign Hypertension
Hypothyroidism
Anxiety / Depression
Mild Dementia
Plan:
Admit for further evaluation and treatment.
IV steroids, nebs, O2 support, etc.
Doxycycline PO.
Pulmonary evaluation for additional recommendations.
Continue usual med regimen for other chronic health issues.
Encourage smoking cessation.
Original Note:
Family Physician
-
Family Physician:
Chief Complaint
-
Shortness of Breath
History of Present Illness
This is a 77 year old female with past medical history of chronic obstructive pulmonary disease, coronary artery disease, and congestive heart failure who presents to the emergency department with difficulty breathing x 1-2 days. Additional history
obtained from patient's daughter. Patient had some shortness of breath yesterday and this morning when the daughter checked on her, but at that time was not hypoxia. Around 4:30PM patient called her daughter complaining of worsening shortness of
breath, and when the daughter checked on her she could not the pulse oximeter to register so she brought her to the emergency department for evaluation. Patient report productive cough of sesay/white sputum for the last 1-2 days. Patient reports she
uses a nebulizer at home for her COPD but denies improvement. She denies chest pain, palpitations, fevers, chills, and sweats.
Medical History
Past Medical History
Past Medical History: Reports Other
Additional Past Medical History:
COPD
Non-Obstructive Coronary Artery Disease
Heart Failure with Mildly Reduced Ejection Fraction
Essential Hypertension
Hyperlipidemia
Hypothyroidism
Anxiety/Depression
Dementia
Past Surgical History: Reports None
Social History
Tobacco: Smoker (Patient reports smoking less than half pack a day)
Family History
Family History: Not pertinent
Allergies / Home Medications
Allergies reflects when Allergies were last updated in [facility].
Home Medications with original date entered in [facility]
Allergy/Medication List:
Allergies
Allergy/AdvReac Type Severity Reaction Status Date / Time
codeine Allergy Unknown Verified 12/18/23 17:59
meperidine [From Demerol] Allergy Unknown Verified 12/18/23 17:59
Home Medications
albuterol sulfate 90 mcg/actuation aerosol inhaler 2 puff inhalation R Q4HPRN PRN sob/wheezing 10/26/23
atorvastatin 40 mg tablet 40 mg PO DAILY High Cholesterol 10/26/23
donepezil 10 mg tablet 10 mg PO HS Memory 10/26/23
levothyroxine 150 mcg tablet 150 mcg PO DAILY Thyroid 10/26/23
umeclidinium 62.5 mcg-vilanterol 25 mcg/actuation powdr for inhalation (Anoro Ellipta) 1 inh inhalation R DAILY COPD 10/26/23
aspirin 81 mg tablet,delayed release 81 mg PO DAILY #30 tabs 11/01/23
ipratropium 0.5 mg-albuterol 3 mg (2.5 mg base)/3 mL nebulization soln 3 ml inhalation R Q8HPRN PRN shortness of breath 11/14/23
mirtazapine 15 mg tablet 15 mg PO HS Depression/Sleep 11/14/23
omega-3 fatty acids-fish oil 684 mg-1,200 mg capsule,delayed release 1 cap PO DAILY Supplement 11/14/23
empagliflozin 10 mg tablet (Jardiance) 10 mg PO DAILY 12/18/23
furosemide 20 mg tablet 20 mg PO DAILY 12/18/23
lisinopril 5 mg tablet 5 mg PO DAILY 12/18/23
metoprolol succinate 25 mg tablet,extended release 24 hr 25 mg PO BID 12/18/23
Review of Systems
-
A 12 point ROS was completed and negative except as noted: Yes
Constitutional: Denies Fever or Chills
Respiratory: Reports See HPI
Cardiac: Denies Chest Pain or Palpitations
Physical Exam
Vital Signs
Vital Signs
Temp Pulse Resp BP Pulse Ox
98.4 F 84 25 108/83 99
12/18/23 17:59 12/18/23 20:44 12/18/23 20:30 12/18/23 20:44 12/18/23 20:30
Physical Exam
General: Comfortable and Conversant (Slight conversation dyspnea)
HEENT: Anicteric, Moist mucous membranes and Oxygen (Nasal Cannula)
Respiratory: Wheezes (Diffuse); No Accessory Resp Muscle Use
Cardiac: S1/S2 and Regular Rhythm; No Tachycardia
GI: Soft and Non Tender
Musculoskeletal: No Clubbing, No Cyanosis and No Edema
Skin: Warm and Dry
Neuro: Awake, Alert and Nonfocal/grossly intact
Psych: Calm
Laboratory Results
-
12/18/23 18:11
12/18/23 18:11
Laboratory Results
Total Bilirubin 0.5 mg/dl (0.2-1.3) 12/18/23 18:11
AST 45 U/L (14-36) H 12/18/23 18:11
ALT 34 U/L (0-35) 12/18/23 18:11
Alkaline Phosphatase 65 U/L (38-126) 12/18/23 18:11
Data Reviewed
-
Diagnostic Radiology: Report Reviewed by me
Lab Data: Labs Reviewed by me
Impression/Plan
-
Acute Hypoxic Respiratory Insufficiency secondary to Acute COPD Exacerbation
-Continue supplemental oxygen
-Consult Pulmonary
-Continue Decadron
-Continue Duoneb QID and PRN
-Continue Pulmicort neb
-Complete coarse of doxycycline
Hyperkalemia
-Hold Lisinopril
-Continue Lasix
-Recheck Labs in AM
Hypercalcemia
-Recheck in AM with Ionized Calcium
-Check Intact PTH
Non-Obstructive Coronary Artery Disease
-Continue aspirin
Chronic HFmrEF - Patient appears well compensated
-Continue Lasix and Jardiance
-Monitor Is&Os and Daily Weights
Essential Hypertension
-Hold lisinopril due to hyperkalemia
-Continue Metoprolol
Hyperlipidemia
-Continue atorvastatin
Hypothyroidism
-Continue levothyroxine
Anxiety/Depression
-Continue mirtazapine
Dementia
-Continue Donepezil
-Monitor sugars and continue coverage insulin
Tobacco Use Disorder
-Encourage smoking cessation
DVT proph: Lovenox
Code Status: Full Code
[2023-12-18 21:27] LABS: B.E. -0.3 mmol/L; HCO3 26.4 mmol/L (21-28); O2 Saturation % 95.7 % (94-98); PCO2 50 mmHg (32-35); PO2 74 mmHg (83-108); pH 7.33 (7.35-7.45)
[2023-12-18 23:24] VITALS: BP 121/71
[2023-12-19] VITALS (17 sets, daily range): BP systolic 101–124; BP diastolic 63–82; PULSE 88; O2SAT 97; BMI 23.3
[2023-12-19] MEDS: REMERON 15 MG PO ×2 (00:29→21:04)
[2023-12-19] MEDS: ARICEPT 10 MG PO ×2 (00:29→21:04)
[2023-12-19] MEDS: DECADRON 4 MG IV ×3 (06:00→21:05)
[2023-12-19 06:21] LABS: Hematocrit 43.6 % (37.0-47.0); Mean Corp Hgb Conc. 34.4 g/dL (33.0-37.0); Mean Corpuscular Hgb 29.8 pg (27.0-31.0); Mean Corpuscular Volume 86.5 fL (81.0-99.0); Mean Platelet Volume 8.7 fL (7.4-10.4); Platelet Count 283 10^3/uL (130-400); Red Blood Cell Count 5.04 10^6/uL (4.20-5.40); Red Cell Dist. Width 14.4 % (11.5-14.5); White Blood Cell Count 8.8 10^3/uL (4.8-10.8)
[2023-12-19 06:23] LABS: Ionized Calcium 1.23 mMOL/L (1.15-1.33)
[2023-12-19 06:33] LABS: Blood Urea Nitrogen 15 mg/dl (7-17); Calcium 10.4 mg/dl (8.4-10.2); Carbon Dioxide 30 mmol/L (22-30); Chloride 99 mmol/L (98-107); Estimated Creatinine Clearance 59 ml/min; Glucose 113 mg/dl (70-99); Magnesium 2.1 mg/dl (1.6-2.3); Potassium 4.7 mmol/L (3.5-5.1); Sodium 141 mmol/L (135-145); eGFR > 60.00
[2023-12-19 07:04] LABS: TSH Reflex To Free T4 0.84 uIU/ml (0.47-4.68)
--- NOTE | 2023-12-19 07:34 | CON.PUL ---
Consultation
Consultation Request
Date/Time Consultation Requested: 12/19/2023-9 AM
Date/Time Consultation Performed: 12/19/2023-9:30 AM
Requesting Provider: Hospitalist
Performing Provider: Dr. Rankin
Reason for Consultation: Shortness of breath
Medical History
-
Chief Complaint: Shortness of breath
History of Present Illness:
77-year-old female with underlying COPD not followed by pulmonary-has been instructed to do so but failed to follow-up, CAD, chronic heart failure reduced EF, hypertension, hypothyroid and mild dementia who presented with increasing shortness of
breath and COPD exacerbation-pulmonary consulted for shortness of breath and COPD exacerbation 12/19/2023. Patient is feeling somewhat improved on oxygen and after nebulizers. She has some chest congestion, no significant cough, some wheezing, chest
tightness, dyspnea on exertion and offers no complaints of pleurisy, hemoptysis, reflux, abdominal pain, anorexia, leg swelling or weakness.
Past Medical History
Past Medical History: None (COPD. Tobacco addiction. Respiratory failure-hypoxia/hypercapnia the ventilator dependence October 2023. CAD. Heart failure mildly reduced EF. Hypertension. Hyperlipidemia. Hypothyroid. Anxiety. Depression. Mild
dementia.)
Social History
Tobacco: Smoker ([id number] quit 2 weeks ago)
Drug: None
Living: With Family
Occupational Exposures: No known asbestos exposure
Environmental Exposures: No known tuberculosis exposure
Family History
Family History: Reviewed & Not Pertinent
Allergies / Home Medications
Allergies
Allergy/AdvReac Type Severity Reaction Status Date / Time
codeine Allergy Unknown Verified 12/18/23 17:59
meperidine [From Demerol] Allergy Unknown Verified 12/18/23 17:59
Home Medications
�Medication �Instructions �Recorded �Confirmed �Last Taken �Type
albuterol sulfate 90 mcg/actuation 2 puff inhalation R Q4HPRN PRN 10/26/23 12/18/23 Unknown History
aerosol inhaler sob/wheezing
atorvastatin 40 mg tablet 40 mg PO DAILY High Cholesterol 10/26/23 12/18/23 12/18/23 History
donepezil 10 mg tablet 10 mg PO HS Memory 10/26/23 12/18/23 12/17/23 History
levothyroxine 150 mcg tablet 150 mcg PO DAILY Thyroid 10/26/23 12/18/23 12/18/23 History
umeclidinium 62.5 mcg-vilanterol 1 inh inhalation R DAILY COPD 10/26/23 12/18/23 12/18/23 History
25 mcg/actuation powdr for
inhalation (Anoro Ellipta)
aspirin 81 mg tablet,delayed 81 mg PO DAILY #30 tabs 11/01/23 12/18/23 12/18/23 Rx
release
ipratropium 0.5 mg-albuterol 3 mg 3 ml inhalation R Q8HPRN PRN 11/14/23 12/18/23 11/14/23 15:30 History
(2.5 mg base)/3 mL nebulization shortness of breath
soln
mirtazapine 15 mg tablet 15 mg PO HS Depression/Sleep 11/14/23 12/18/23 12/17/23 History
omega-3 fatty acids-fish oil 684 1 cap PO DAILY Supplement 11/14/23 12/18/23 12/18/23 History
mg-1,200 mg capsule,delayed release
empagliflozin 10 mg tablet 10 mg PO DAILY 12/18/23 12/18/23 12/18/23 History
(Jardiance)
furosemide 20 mg tablet 20 mg PO DAILY 12/18/23 12/18/23 12/18/23 History
lisinopril 5 mg tablet 5 mg PO DAILY 12/18/23 12/18/23 12/18/23 History
metoprolol succinate 25 mg 25 mg PO BID 12/18/23 12/18/23 12/18/23 History
tablet,extended release 24 hr
Review of Systems
-
Unable to Obtain full review of systems at this time due to: Other (Per HPI)
Vitals / Labs / Diagnostic Testing
Vital Signs
Temp Pulse Resp BP Pulse Ox
98.4 F 88 22 107/75 96
12/18/23 17:59 12/19/23 02:45 12/19/23 02:45 12/19/23 02:04 12/19/23 02:30
Lab Data
12/19/23 06:12
12/19/23 06:12
Laboratory Results
12/18/23
21:16
pH 7.33 L
pCO2 50 H
pO2 74 L
HCO3 26.4
O2 Delivery Level
Diagnostic Testing:
Physical Exam
-
Exam:
Well-nourished and well-developed in no apparent distress
HEENT-atraumatic, normocephalic
Neck-supple, no JVD, no bruit
Heart-regular rate and rhythm-no murmurs, rubs or gallops
Chest with diminished breath sounds, prolonged expiratory time, expiratory wheezes and rare basilar crackle
Back without tenderness
Abdomen-soft, nontender, nondistended, no hepatosplenomegaly
Extremities-no cyanosis, clubbing, edema and good peripheral pulses
Integument-intact, no rashes, lesions or ecchymosis
Neurology-alert and oriented, nonfocal motor and sensory exam
Assessment
-
77-year-old female with underlying COPD not followed by pulmonary-has been instructed to do so but failed to follow-up, CAD, chronic heart failure reduced EF, hypertension, hypothyroid and mild dementia who presented with increasing shortness of
breath and COPD exacerbation-pulmonary consulted for shortness of breath and COPD exacerbation 12/19/2023.
COPD-suspect Gold stage III with acute exacerbation
Hypoxemic and mild hypercapnic respiratory failure-ABG 12/18/2023-on 2 L--50/70/7 0.33
Recurrent recent hospitalizations including ventilator dependent respiratory failure October and COPD exacerbation november 2023
Hyperkalemia
Hypercalcemia
Chronic heart failure reduced EF
Conditions present prior to admission:
COPD.
Tobacco addiction.
Respiratory failure-hypoxia/hypercapnia the ventilator dependence October 2023.
CAD.
Heart failure mildly reduced EF.
Hypertension.
Hyperlipidemia.
Hypothyroid.
Migraine
Anxiety.
Depression.
Mild dementia.
Tubal ligation 1979
Plan
Patient requires admission for COPD exacerbation
Supplemental oxygen as needed
ABG reviewed and reveals mild hypercapnic and hypoxemic respiratory failure
BiPAP if needed
Duo nebs
Pulmicort nebulizers
Mucolytic's
Decadron 4 mg IV every 8 hours
Incentive spirometry
Acapella
Consider vest if difficulties mobilizing secretions
Consider chest physiotherapy if difficulties mobilizing secretions
Check cultures
Empiric antibiotics initiated-doxycycline
Monitor leukocytosis
Monitor blood sugars
Insulin supplementation as needed
Correcting electrolyte imbalances-hyperkalemia and hypercalcemia
Smoking cessation counseling provided
DVT prophylaxis-on Lovenox
GI prophylaxis-on pantoprazole
Early nutrition
Early mobilization
Reviewed with nursing, respiratory therapy, and primary team.
Outpatient pulmonary follow-up
The patient was seen in the pulmonary office 11/21/2023 by Ashley Cornejo NP/Dr. Ordoñez-has appointment with PFT 02/24/2024 at 2 PM
Diagnostic data:
Chest x-ray 11/14/2023-hyperinflation
Chest x-ray 12/18/2023-mild apical scarring, mild flattening of diaphragms consistent with COPD, NAD
CT chest/-negative for pulmonary embolism, 1.5 cm low-density adrenal mass likely adrenal adenoma
Cardiac catheterization-nonobstructing CAD, elevated left ventricular end-diastolic pressure
Spirometry 11/21/2023-FEV1 1.13-55%, FVC 1.95-70%
Data Reviewed
-
PFT: Report reviewed by me
EKG: Report reviewed by me
Radiology: Image personally visualized and interpreted and Report reviewed by me
CT Scan: Report reviewed by me
Medical Tests (Nuc Med, Echo etc): Report reviewed by me
Labs: Labs reviewed by me
Old Records: Reviewed
Total Time Spent with Patient (in minutes): 65
[2023-12-19] MEDS: PULMICORT 0.5 MG INH ×2 (08:13→19:59)
[2023-12-19] MEDS: DUONEB 3 ML INH ×4 (08:13→19:54)
[2023-12-19] MEDS: LIPITOR 40 MG PO ×2 (08:42→08:46)
[2023-12-19] MEDS: SYNTHROID 150 MCG PO ×2 (08:42→08:48)
[2023-12-19] MEDS: JARDIANCE 10 MG PO (08:47)
[2023-12-19] MEDS: LASIX 20 MG PO (08:47)
[2023-12-19] MEDS: TOPROL XL 25 MG PO ×2 (08:48→20:51)
[2023-12-19] MEDS: PROTONIX 40 MG PO (08:48)
[2023-12-19] MEDS: ASPIR LOW (ENTERIC COATED) 81 MG PO (08:48)
[2023-12-19] MEDS: MUCINEX 600 MG PO ×2 (08:48→20:51)
[2023-12-19] MEDS: VIBRAMYCIN 100 MG PO ×2 (08:48→20:51)
--- NOTE | 2023-12-19 09:10 | EDRN ---
the pt was received from previous route sales person RN, the pt is resting in stretcher in the lowest position, side rails up x2, call reece within reach, HOB elevated, no s/s of distress, the pt is AAO with periods of confusion which the pt states that she
is aware of, the pt stated, 'I am sorry i just forget things and i think that they are working me up for dementia that's one thing i don't forget, so i get confused sometimes', this RN assured the pt that this pt will redirect her as needed, VS WNL,
assessment performed in work list, the pt is currently on 3L NC with p02 96%, the pt ordered her breakfast, the pt has attempted to get out of bed multiple times without pressing the call reece, this RN reminded the pt that she should press the red
call reece when she needs something or when she needs to go to the bathroom, the pt did remember to press the call reece the next time and this RN and PCT Kristina entered the pts room and the pt was able to ambulate to the bathroom and back to the
stretcher with no issues, will continue to monitor the pt closely
--- NOTE | 2023-12-19 09:39 | EDRN ---
the pts breakfast came and this RN asked the pt if she wanted to eat breakfast in the stretcher or in the chair, the pt wanted to eat her breakfast in the chair, this RN put the side rail down and the pt was able to transfer from the stretcher to
the chair with no issues, the pt is eating breakfast, will continue to monitor the pt closely
--- NOTE | 2023-12-19 10:48 | EDRN ---
Dr. Vera is currently at the pts bedside speaking with the pt
--- NOTE | 2023-12-19 12:50 | W.PN.HOSP.TC ---
Today's Communication/Plan
-
Monitor vital signs and see plan
Wean oxygen as tolerated
Continue steroids
DuoNebs
Wean oxygen as tolerated
Assessment / Plan
Assessment / Plan
General: Comfortable and Conversant (Slight conversation dyspnea)
HEENT: Anicteric, Moist mucous membranes and Oxygen (Nasal Cannula)
Respiratory: Wheezes (Diffuse); No Accessory Resp Muscle Use
Cardiac: S1/S2 and Regular Rhythm; No Tachycardia
GI: Soft and Non Tender
Musculoskeletal: No Clubbing, No Cyanosis and No Edema
Skin: Warm and Dry
Neuro: Awake, Alert and Nonfocal/grossly intact
Psych: Calm
Acute Hypoxic Respiratory Insufficiency secondary to Acute COPD Exacerbation with
Currently on 4 L, wean oxygen as tolerated
-Continue supplemental oxygen
Pulmonary following
-Continue Decadron
-Continue Duoneb QID and PRN
-Continue Pulmicort neb
-Complete coarse of doxycycline
Hyperkalemia
-Hold Lisinopril
-Continue Lasix
Hypercalcemia
�Calcium normal
-Check Intact PTH
Non-Obstructive Coronary Artery Disease
-Continue aspirin
Chronic HFmrEF - Patient appears well compensated
-Continue Lasix and Jardiance
-Monitor Is&Os and Daily Weights
Essential Hypertension
-Hold lisinopril due to hyperkalemia
-Continue Metoprolol
Hyperlipidemia
-Continue atorvastatin
Hypothyroidism
-Continue levothyroxine
Anxiety/Depression
-Continue mirtazapine
Dementia
-Continue Donepezil
-Monitor sugars and continue coverage insulin
Tobacco Use Disorder
-Encourage smoking cessation
DVT proph: Lovenox
Code Status: Full Code
I spent a total of 52 minutes with the patient or on the floor. More than 50% of this time involved counseling and coordination of care.
Anticipated Discharge: > 48 hours
Subjective/Interval History
-
Date of Service: December 19, 2023
Denies chest pain
Objective Data
-
Labs:
Laboratory Results
12/19/23
06:12
WBC 8.8
Hgb 15.0
Hct 43.6
Plt Count 283
Sodium 141
Potassium 4.7
Chloride 99
Carbon Dioxide 30
BUN 15
Creatinine 0.7
Glucose 113 H
Calcium 10.4 H
Vital Signs:
Vital Signs
Temp Pulse Resp BP Pulse Ox
98.1 F 85 20 109/82 92
12/19/23 08:49 12/19/23 11:44 12/19/23 11:44 12/19/23 08:49 12/19/23 11:44
--- NOTE | 2023-12-19 12:54 | EDRN ---
"the pt is sitting on the side of the bed, VS WNL, the pt is currently still on 3L NC with Sp02 of 96%, no s/s of distress, no c/o pain, no c/o SOB, occupational therapy and physical therapy currently at the pts bedside with the pt, the pts daughter "[place]"is currently at the pts bedside as well, will continue to monitor the pt closely"
--- NOTE | 2023-12-19 14:31 | EDRN ---
this RN called the receiving unit and notified them that paper report was going to be tubed up
[2023-12-19] MEDS: LOVENOX 40 MG SC (17:59)
[2023-12-20 03:21] VITALS: BP 118/76
[2023-12-20 05:31] VITALS: BMI 22.2
[2023-12-20] MEDS: DECADRON 4 MG IV ×3 (05:47→21:09)
[2023-12-20] MEDS: DUONEB 3 ML INH ×4 (07:25→19:13)
[2023-12-20] MEDS: PULMICORT 0.5 MG INH ×2 (07:25→19:14)
[2023-12-20 07:58] VITALS: BP 114/69
[2023-12-20 08:30] LABS: % Basophils 0.1 % (0-2); % Eosinophils 0.1 % (0-6); % Immature Granulocytes 0.9 % (0-0.5); % Lymphocytes 6.2 % (20.5-51.1); % Monocytes 4.8 % (1.7-9.3); % Neutrophils 87.9 % (42.2-75.2); Absolute Immature Granulocytes 0.1 10^3/uL (0-0.05); Absolute Lymphocytes 0.7 10^3/uL (1.2-3.4); Absolute Monocytes 0.6 10^3/uL (0.1-0.6); Absolute Neutrophils 10.3 10^3/uL (1.4-6.5); Hematocrit 40.1 % (37.0-47.0); Hemoglobin 13.6 g/dL (12.0-16.0); Mean Corp Hgb Conc. 33.9 g/dL (33.0-37.0); Mean Corpuscular Hgb 29.6 pg (27.0-31.0); Mean Corpuscular Volume 87.2 fL (81.0-99.0); Nucleated Red Blood Cells % 0 %; Platelet Count 284 10^3/uL (130-400); Red Cell Dist. Width 14.2 % (11.5-14.5); White Blood Cell Count 11.7 10^3/uL (4.8-10.8)
[2023-12-20 08:50] VITALS: BMI 22.2
[2023-12-20 09:21] LABS: Blood Urea Nitrogen 24 mg/dl (7-17); Calcium 10.3 mg/dl (8.4-10.2); Carbon Dioxide 27 mmol/L (22-30); Chloride 99 mmol/L (98-107); Estimated Creatinine Clearance 59 ml/min; Glucose 102 mg/dl (70-99); Potassium 4.8 mmol/L (3.5-5.1); Sodium 139 mmol/L (135-145); eGFR > 60.00
--- NOTE | 2023-12-20 09:22 | W.PN.PUL.V3 ---
Today's Communication / Plan
-
Wean oxygen
Increase activity
Decrease steroids in the next 24 hours
Nebulizers
Doxycycline
Outpatient pulmonary follow-up
Assessment
-
77-year-old female with underlying COPD not followed by pulmonary-has been instructed to do so but failed to follow-up, CAD, chronic heart failure reduced EF, hypertension, hypothyroid and mild dementia who presented with increasing shortness of
breath and COPD exacerbation-pulmonary consulted for shortness of breath and COPD exacerbation 12/19/2023.
COPD-suspect Gold stage III with acute exacerbation
Hypoxemic and mild hypercapnic respiratory failure-ABG 12/18/2023-on 2 L--50/70/7 0.33
Recurrent recent hospitalizations including ventilator dependent respiratory failure October and COPD exacerbation november 2023
Hyperkalemia
Hypercalcemia
Chronic heart failure reduced EF
Conditions present prior to admission:
COPD.
Tobacco addiction.
Respiratory failure-hypoxia/hypercapnia the ventilator dependence October 2023.
CAD.
Heart failure mildly reduced EF.
Hypertension.
Hyperlipidemia.
Hypothyroid.
Migraine
Anxiety.
Depression.
Mild dementia.
Tubal ligation 1978
Plan
Respiratory decompensation likely due to COPD with acute exacerbation
Supplemental oxygen as needed-attempt to wean to room air
Patient does not have home oxygen-will need to assess prior to discharge
ABG reviewed and reveals mild hypercapnic and hypoxemic respiratory failure
BiPAP if needed-believe we will likely be able to avoid
Duo nebs
Pulmicort nebulizers
Mucolytic's
Decadron 4 mg IV every 8 hours-no change today-likely will be able to reduce in the next 24 hours
Incentive spirometry
Acapella
Consider vest if difficulties mobilizing secretions
Consider chest physiotherapy if difficulties mobilizing secretions
Cultures reviewed-unrevealing
Blood cultures negative
Influenza negative
Unable to produce sputum
Empiric antibiotics initiated-doxycycline
Monitor leukocytosis
Follow blood sugars
Insulin supplementation as needed
Correcting electrolyte imbalances-hyperkalemia and hypercalcemia
Smoking cessation counseling provided-and will be ongoing
DVT prophylaxis-on Lovenox
GI prophylaxis-on pantoprazole
Nutrition
Early mobilization/physical therapy
Outpatient pulmonary follow-up
The patient was seen in the pulmonary office 11/21/2023 by Ashley Cornejo NP/Dr. Ordoñez-has appointment with PFT 02/24/2024 at 2 PM
Diagnostic data:
Chest x-ray 11/14/2023-hyperinflation
Chest x-ray 12/18/2023-mild apical scarring, mild flattening of diaphragms consistent with COPD, NAD
CT chest-negative for pulmonary embolism, 1.5 cm low-density adrenal mass likely adrenal adenoma
Cardiac catheterization-nonobstructing CAD, elevated left ventricular end-diastolic pressure
Spirometry 11/21/2023-FEV1 1.13-55%, FVC 1.95-70%
Subjective Data
-
Date of Service:
Date of Service: December 20, 2023
Chief Complaint: Pulmonary Follow Up and Dyspnea Follow Up
Subjective:
Mild shortness of breath, still some wheezing, complaining about the food, no chest pain or abdominal pain, clearly forgetful-does not remember being seen in the pulmonary office, not sure if she remembered seeing me in the emergency room
Review of Systems
General: Other (Per HPI)
Objective Data
Data Reviewed
Vital Signs / I&O:
Vital Signs
Temp Pulse Resp BP Pulse Ox
97.7 F 80 20 114/69 97
12/20/23 07:58 12/20/23 07:58 12/20/23 07:58 12/20/23 07:58 12/20/23 07:58
Intake and Output
12/19/23 12/20/23 12/21/23
06:59 06:59 06:59
Intake Total 480 / 480
Balance 480 / 480
SaO2: 97
Nasal Cannula flow liters per minute: 3
Physical Exam
General: Respiratory Distress (n) and Comfortable
HEENT: Normocephalic, Anicteric and Moist Mucous Membranes
Cardiovascular: Regular Rhythm and Murmur
Respiratory: Wheeze (Expiratory), Crackles (Rare basilar), Rhonchi ( few expiratory), Non-Labored Respirations, Accessory Resp Muscle Use (n) and Stridor (n)
GI: Soft, Non Distended and Non Tender
Neurology: Awake, Alert and No Motor Deficits
Skin: Warm, Good Color, Cyanosis (n), Jaundice (n) and Rash (n)
Labs/Micro/Reports
Lab Data
12/20/23 07:40
12/20/23 07:40
[2023-12-20] MEDS: LASIX 20 MG PO (09:54)
[2023-12-20] MEDS: VIBRAMYCIN 100 MG PO ×2 (09:54→20:58)
[2023-12-20] MEDS: PROTONIX 40 MG PO (09:54)
[2023-12-20] MEDS: TOPROL XL 25 MG PO ×2 (09:55→20:58)
[2023-12-20] MEDS: JARDIANCE 10 MG PO (09:55)
[2023-12-20] MEDS: MUCINEX 600 MG PO ×2 (09:55→20:58)
[2023-12-20] MEDS: ASPIR LOW (ENTERIC COATED) 81 MG PO (09:56)
[2023-12-20 11:24] VITALS: BP 109/69
--- NOTE | 2023-12-20 12:58 | W.PN.HOSP.TC ---
Addendum entered and electronically signed by Bhanu Vera MD 12/20/23 16:06:
Daughter updated over the phone
Original Note:
Today's Communication/Plan
-
Monitor vital signs
See plan
Still on oxygen, wean oxygen as tolerated
Continue with steroids, nebs, doxycycline
PT/OT
Assessment / Plan
Assessment / Plan
General: Comfortable and Conversant (Slight conversation dyspnea)
HEENT: Anicteric, Moist mucous membranes and Oxygen (Nasal Cannula)
Respiratory: Wheezes (Diffuse); No Accessory Resp Muscle Use
Cardiac: S1/S2 and Regular Rhythm; No Tachycardia
GI: Soft and Non Tender
Musculoskeletal: No Clubbing, No Cyanosis and No Edema
Skin: Warm and Dry
Neuro: Awake, Alert and Nonfocal/grossly intact
Psych: Calm
Acute Hypoxic Respiratory Insufficiency secondary to Acute COPD Exacerbation
Currently on 4 L, wean oxygen as tolerated
-Continue supplemental oxygen
Pulmonary following
-Continue Decadron
-Continue Duoneb QID and PRN
-Continue Pulmicort neb
-Complete coarse of doxycycline
Hyperkalemia
-Hold Lisinopril
-Continue Lasix
Hypercalcemia
�Calcium normal
-Check Intact PTH
Non-Obstructive Coronary Artery Disease
-Continue aspirin
Chronic HFmrEF - Patient appears well compensated
-Continue Lasix and Jardiance
-Monitor Is&Os and Daily Weights
Essential Hypertension
-Hold lisinopril; BP not high
-Continue Metoprolol
Hyperlipidemia
-Continue atorvastatin
Hypothyroidism
-Continue levothyroxine
Anxiety/Depression
-Continue mirtazapine
Dementia
-Continue Donepezil
-Monitor sugars and continue coverage insulin
Tobacco Use Disorder
-Encourage smoking cessation
DVT proph: Lovenox
Code Status: Full Code
Anticipated Discharge: > 48 hours
Subjective/Interval History
-
Date of Service: December 20, 2023
Denies pain
Objective Data
-
Labs:
Laboratory Results
12/20/23
07:40
WBC 11.7 H
Hgb 13.6
Hct 40.1
Plt Count 284
Sodium 139
Potassium 4.8
Chloride 99
Carbon Dioxide 27
BUN 24 H
Creatinine 0.7
Glucose 102 H
Calcium 10.3 H
Vital Signs:
Vital Signs
Temp Pulse Resp BP Pulse Ox
99.0 F 102 20 109/69 92
12/20/23 11:24 12/20/23 11:30 12/20/23 11:30 12/20/23 11:24 12/20/23 11:30
I&O
12/19/23 12/20/23 12/21/23
06:59 06:59 06:59
Intake Total 480 / 480
Balance 480 / 480
--- NOTE | 2023-12-20 13:33 | PN.CDI ---
CDI
- -
CDI:
Physician Documentation Request
Admit Date: 12/18/23 22:42
Dear Doctor Chuy,
Please review the following and provide your response in the progress notes.
Pt admitted with exacerbation COPD
12/18 PN: 'Conversant (Slight conversation dyspnea)...Acute Hypoxic Respiratory Insufficiency secondary to Acute COPD Exacerbation..'
12/18 Pulm note: 'Hypoxemic and mild hypercapnic respiratory failure-ABG 12/18/2023-on 2 L--50/70/7 0.33'
ABG result:
Laboratory Tests
12/18/23
21:16
pH 7.33 L
pCO2 50 H
pO2 74 L
Due to the potentially conflicting documentation, could you please clarify which of the following accurately represents the patient's respiratory status:
Acute hypoxic/hypercapnic respiratory failure
Acute Hypoxic Respiratory Insufficiency
Other
Additional information for Respiratory Failure:
Recognized criteria for Respiratory Failure (Source: [facility] Hospitalist May 2013)
ABGs: (1 or more) Symptoms Please indicate type if known
1. p)2 <60 or RA SPO2 <91% on RA 1. Tachypnea, SOB, dyspnea Hypoxic
2. pCO2 50 and pH <7.35 2. Use of accessory muscles Hypercapnic
3. pO2 decrease of pCO2 increase by 3. Pallor or cyanosis Hypoxic and Hypercapnic
10 mmHg from baseline if known 4. Anxiety or restlessness Unable to determine
5. Unable to speak in full sentences
Supplemental O2 of > 40% (5LPM) Intubation is not required
Use of terms such as suspected, likely, concern for, or probable (associated with a specific diagnosis that is being evaluated, monitored, or treated as if it exists) are acceptable and can be coded in the inpatient setting, when documented at the
time of discharge.
Thank you,
Lacey Stone RN, BSN
CDI Specialist
Available via [place] [employer]
Please use your independent medical judgment in providing your response.
[2023-12-20 15:37] VITALS: BP 122/69
--- NOTE | 2023-12-20 15:38 | CM ---
Met with patient and her daughter/primary contact, Dary Carpenter #[phone], at the bedside; initial assessment completed
Pharmacy verified: [facility], [address] [place] [address]
Family Physician verified: Usha Alicia #[phone]
Contacted Admissions to update Family Physician and Address in [facility]
Patient lives alone in a one floor Condo; no steps to enter. Bathroom has walk-in shower with grab bar and seat
PLOF: daughter reported that mother has Dementia; independent with ambulation, steps, and personal care (bathing, dressing, feeding); needs assistance with medications and hot top liner; drives
DME: nebulizer
Per daughter, patient is a smoker
Transportation: daughter will be able to transport to home or SNF if patient agrees with plan
SNF/Rehab/Home Health utilization history: none
PT/OT recommend SNF @ discharge; list of facilities provided to consider for preferences
Plan: discharge to SNF when medically stable; CM will follow and obtain SNF preferences when identified
[2023-12-20] MEDS: LOVENOX 40 MG SC (17:40)
[2023-12-20 19:25] VITALS: BP 129/68
[2023-12-20] MEDS: REMERON 15 MG PO (21:09)
[2023-12-20] MEDS: ARICEPT 10 MG PO (21:09)
[2023-12-20 23:11] VITALS: BP 125/68
[2023-12-21 03:25] VITALS: BP 118/66
[2023-12-21] MEDS: DECADRON 4 MG IV ×3 (05:56→20:06)
[2023-12-21] MEDS: SYNTHROID 150 MCG PO (05:57)
[2023-12-21 06:00] VITALS: BMI 22.2
[2023-12-21 07:35] VITALS: BP 130/71
[2023-12-21] MEDS: DUONEB 3 ML INH ×4 (07:57→19:52)
[2023-12-21] MEDS: PULMICORT 0.5 MG INH ×2 (07:57→19:52)
[2023-12-21] MEDS: ASPIR LOW (ENTERIC COATED) 81 MG PO (08:16)
[2023-12-21] MEDS: TOPROL XL 25 MG PO ×2 (08:16→20:06)
[2023-12-21] MEDS: JARDIANCE 10 MG PO (08:16)
[2023-12-21] MEDS: PROTONIX 40 MG PO (08:16)
[2023-12-21] MEDS: MUCINEX 600 MG PO ×2 (08:16→20:06)
[2023-12-21] MEDS: VIBRAMYCIN 100 MG PO ×2 (08:16→20:06)
[2023-12-21] MEDS: LIPITOR 40 MG PO (08:16)
[2023-12-21] MEDS: LASIX 20 MG PO (08:16)
[2023-12-21 08:26] LABS: % Basophils 0.1 % (0-2); % Eosinophils 0.1 % (0-6); % Immature Granulocytes 0.9 % (0-0.5); % Lymphocytes 8.8 % (20.5-51.1); % Monocytes 5.6 % (1.7-9.3); % Neutrophils 84.5 % (42.2-75.2); Absolute Immature Granulocytes 0.1 10^3/uL (0-0.05); Absolute Monocytes 0.6 10^3/uL (0.1-0.6); Absolute Neutrophils 9.6 10^3/uL (1.4-6.5); Hematocrit 42.9 % (37.0-47.0); Hemoglobin 14.4 g/dL (12.0-16.0); Mean Corp Hgb Conc. 33.6 g/dL (33.0-37.0); Mean Corpuscular Hgb 29.8 pg (27.0-31.0); Mean Corpuscular Volume 88.6 fL (81.0-99.0); Mean Platelet Volume 9.3 fL (7.4-10.4); Nucleated Red Blood Cells % 0 %; Platelet Count 304 10^3/uL (130-400); Red Blood Cell Count 4.84 10^6/uL (4.20-5.40); Red Cell Dist. Width 14.4 % (11.5-14.5); White Blood Cell Count 11.3 10^3/uL (4.8-10.8)
[2023-12-21 09:03] LABS: Blood Urea Nitrogen 34 mg/dl (7-17); Calcium 10.4 mg/dl (8.4-10.2); Carbon Dioxide 28 mmol/L (22-30); Chloride 99 mmol/L (98-107); Estimated Creatinine Clearance 52 ml/min; Glucose 87 mg/dl (70-99); Potassium 4.2 mmol/L (3.5-5.1); Sodium 140 mmol/L (135-145); eGFR > 60.00
[2023-12-21 09:36] LABS: Intact PTH 60.8 pg/ml (13.6-85.8)
--- NOTE | 2023-12-21 10:07 | W.PN.PUL3 ---
Today's Communication / Plan
-
Goal SpO2>88% and <96%
Up OOB as toelrated
PT/OT rec'd skilled rehab upon discharge
Decrease steroids tonight to 4mg IV q12hr
Nebulizers
Doxycycline
NRT with nicotine patch
Outpatient pulmonary follow-up
Assessment
-
77-year-old female with underlying COPD not followed by pulmonary-has been instructed to do so but failed to follow-up, CAD, chronic heart failure reduced EF, hypertension, hypothyroid and mild dementia who presented with increasing shortness of
breath and COPD exacerbation-pulmonary consulted for shortness of breath and COPD exacerbation 12/19/2023.
Impression:
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
Hypoxemic and mild hypercapnic respiratory failure-ABG 12/18/2023-on 2 L--50/70/7 0.33
Recurrent recent hospitalizations including ventilator dependent respiratory failure October and COPD exacerbation november 2023
Hyperkalemia
Hypercalcemia
Chronic heart failure reduced EF
Conditions present prior to admission:
COPD.
Tobacco addiction.
Respiratory failure-hypoxia/hypercapnia the ventilator dependence October 2023.
CAD.
Heart failure mildly reduced EF.
Hypertension.
Hyperlipidemia.
Hypothyroid.
Migraine
Anxiety.
Depression.
Mild dementia.
Tubal ligation 1978
Plan
Respiratory decompensation likely due to COPD with acute exacerbation with continued cigarette use
Continue O2 if needed to keep SpO2 >88% and <96%
Patient does not have home oxygen-will need to assess prior to discharge
ABG reviewed and reveals mild hypercapnic and hypoxemic respiratory failure
BiPAP if needed-believe we will likely be able to avoid
DuoNebs
Pulmicort nebulizers BID
Mucolytics
Decadron 4 mg IV every 8 hours-wean down to 4mg IV q12hr tonight
Incentive spirometry
Acapella
Consider vest if difficulties mobilizing secretions
Consider chest physiotherapy if difficulties mobilizing secretions
Cultures not obtained this admission
Influenza negative
Unable to produce sputum
Empiric antibiotics initiated-doxycycline
Trend leukocytosis
Follow blood sugars with goal >100 and <180
Insulin supplementation as needed
Replete K>4, Mg>2
Smoking cessation counseling provided-and will be ongoing
I will rx nicotine patch; I discussed in depth nicotine replacement therapy and the importance of using 2 different modalities as opposed to 1 (i.e., nicotine patch + lozenges or gum, nicotine patient therapy + Wellbutrin versus Chantix), and also
other options that are non-pharmacological, including exercise, meditation, acupuncture or hypnosis.
DVT prophylaxis-on Lovenox
GI prophylaxis-not indicated
Nutrition
Early mobilization/physical therapy
Outpatient pulmonary follow-up
The patient was seen in the pulmonary office 11/21/2023 by sAhley Cornejo NP/Dr. Ordoñez-has appointment with PFT 02/24/2024 at 2 PM
Total time spent today was 35 minutes for this encounter. Time includes reviewing laboratory test/imaging results, reviewing pertinent medical records, obtaining and reviewing medical history, performing an appropriate exam, ordering medications,
tests and procedures. Time also includes documentation of this encounter, coordinating patient care and communicating with other healthcare professionals. Total time does not include separately billed tests performed on this date of service.
Diagnostic data:
Chest x-ray 11/14/2023-hyperinflation
Chest x-ray 12/18/2023-mild apical scarring, mild flattening of diaphragms consistent with COPD, NAD
CT chest/-negative for pulmonary embolism, 1.5 cm low-density adrenal mass likely adrenal adenoma
Cardiac catheterization/-nonobstructing CAD, elevated left ventricular end-diastolic pressure
Spirometry 11/21/2023-FEV1 1.13-55%, FVC 1.95-70%
Subjective Data
-
Date of Service:
Date of Service: December 21, 2023
Chief Complaint: Pulmonary Follow Up and Dyspnea Follow Up
Subjective:
Patient was seen and evaluated today at bedside. Currently on room air breathing comfortably. Afebrile overnight. She is still motivated to quit smoking when she is finally discharged. Currently denies chest pain, headache, abdominal pain,
fevers or chills.
Review of Systems
General: Other (Negative unless mentioned above)
Objective Data
Data Reviewed
Vital Signs / I&O / Oxygen:
Vital Signs
Temp Pulse Resp BP Pulse Ox
97.7 F 76 16 130/71 95
12/21/23 07:35 12/21/23 08:01 12/21/23 08:01 12/21/23 07:35 12/21/23 08:20
Intake and Output
12/20/23 12/21/23 12/22/23
06:59 06:59 06:59
Intake Total 480 / 480 960 / 960
Balance 480 / 480 960 / 960
SaO2 95
Nasal Cannula flow liters per 2
minute
Physical Exam
General: Respiratory Distress (n) and Comfortable
HEENT: Normocephalic, Anicteric and Moist Mucous Membranes
Cardiovascular: S1-S2 and Peripheral Edema (Negative)
Respiratory: Wheeze (Negative), Crackles (Negative), Rhonchi (Negative), Non-Labored Respirations, Accessory Resp Muscle Use (n), Stridor (n) and Other (Diminished breath sounds bilaterally)
GI: Soft, Non Distended, Non Tender and Normal Bowel Sounds
Neurology: Awake, Alert and Tremors (Negative)
Skin: Warm, Dry, Cyanosis (n), Jaundice (n) and Rash (n)
Labs/Micro/Reports
Lab Data
12/21/23 06:39
12/21/23 06:39
[2023-12-21 11:15] VITALS: BP 118/70
--- NOTE | 2023-12-21 13:21 | W.PN.HOSP.TC ---
Today's Communication/Plan
-
Monitor vital signs and see plan
Continue with Decadron
Continue with Doxy
Continue nebs
Wean oxygen as tolerated
Will need SNF on discharge
Assessment / Plan
Assessment / Plan
General: Comfortable and Conversant (Slight conversation dyspnea)
HEENT: Anicteric, Moist mucous membranes and Oxygen (Nasal Cannula)
Respiratory: Wheezes (Diffuse); No Accessory Resp Muscle Use
Cardiac: S1/S2 and Regular Rhythm; No Tachycardia
GI: Soft and Non Tender
Musculoskeletal: No Clubbing, No Cyanosis and No Edema
Skin: Warm and Dry
Neuro: Awake, Alert and Nonfocal/grossly intact
Psych: Calm
Acute Hypoxic hypercarbic Respiratory failure secondary to Acute COPD Exacerbation
Currently on 4 L, wean oxygen as tolerated
-Continue supplemental oxygen
Pulmonary following
-Continue Decadron
-Continue Duoneb QID and PRN
-Continue Pulmicort neb
-Complete coarse of doxycycline
Hyperkalemia
-Hold Lisinopril
-Continue Lasix
Hypercalcemia
�Calcium normal
- Intact PTH wnl
Non-Obstructive Coronary Artery Disease
-Continue aspirin
Chronic HFmrEF - Patient appears well compensated
-Continue Lasix and Jardiance
-Monitor Is&Os and Daily Weights
Essential Hypertension
-Hold lisinopril; BP not high
-Continue Metoprolol
Hyperlipidemia
-Continue atorvastatin
Hypothyroidism
-Continue levothyroxine
Anxiety/Depression
-Continue mirtazapine
Dementia
-Continue Donepezil
-Monitor sugars and continue coverage insulin
Tobacco Use Disorder
-Encourage smoking cessation
DVT proph: Lovenox
Code Status: Full Code
PT/OT rec SNF
Spoke with daughter 6/7, will plan for SNF on discharge
Anticipated Discharge: 24 - 48 hours
Subjective/Interval History
-
Date of Service: December 21, 2023
denies pain
Objective Data
-
Labs:
Laboratory Results
12/21/23
06:39
WBC 11.3 H
Hgb 14.4
Hct 42.9
Plt Count 304
Sodium 140
Potassium 4.2
Chloride 99
Carbon Dioxide 28
BUN 34 H
Creatinine 0.8
Glucose 87
Calcium 10.4 H
Vital Signs:
Vital Signs
Temp Pulse Resp BP Pulse Ox
97.4 F 81 20 118/70 97
12/21/23 11:15 12/21/23 11:15 12/21/23 11:15 12/21/23 11:15 12/21/23 11:15
I&O
12/20/23 12/21/23 12/22/23
06:59 06:59 06:59
Intake Total 480 / 480 960 / 960
Balance 480 / 480 960 / 960
--- NOTE | 2023-12-21 14:17 | CM ---
Patient seen bedside with daughter Dary.
OIptions reviewed and referrals placed to [facility], [place] and [facility].
Plan: Skilled rehab once bed available.
[2023-12-21 15:55] VITALS: BP 115/57
[2023-12-21] MEDS: LOVENOX 40 MG SC (17:54)
[2023-12-21 19:25] VITALS: BP 135/70
[2023-12-21] MEDS: REMERON 15 MG PO (20:56)
[2023-12-21] MEDS: ARICEPT 10 MG PO (20:57)
[2023-12-21 23:17] VITALS: BP 127/67
[2023-12-22 03:20] VITALS: BP 135/68
[2023-12-22] MEDS: SYNTHROID 150 MCG PO (05:23)
[2023-12-22 06:00] VITALS: BMI 21.2
[2023-12-22 07:00] VITALS: BP 124/67
[2023-12-22 07:20] LABS: Venous Blood Gas O2 Sat % 66.6 %; Venous Blood Gas pCO2 63 mmHg (35-48); Venous Blood Gas pH 7.34 (7.32-7.43); Venous Blood Gas pO2 39 mmHg (30-50)
[2023-12-22 07:23] LABS: % Basophils 0.2 % (0-2); % Eosinophils 0.2 % (0-6); % Immature Granulocytes 0.7 % (0-0.5); % Lymphocytes 9.5 % (20.5-51.1); % Monocytes 9.4 % (1.7-9.3); Absolute Immature Granulocytes 0.1 10^3/uL (0-0.05); Absolute Lymphocytes 1.1 10^3/uL (1.2-3.4); Absolute Neutrophils 8.9 10^3/uL (1.4-6.5); Hematocrit 41.8 % (37.0-47.0); Hemoglobin 14.1 g/dL (12.0-16.0); Mean Corp Hgb Conc. 33.7 g/dL (33.0-37.0); Mean Corpuscular Hgb 30.1 pg (27.0-31.0); Mean Corpuscular Volume 89.1 fL (81.0-99.0); Nucleated Red Blood Cells % 0 %; Platelet Count 246 10^3/uL (130-400); Red Blood Cell Count 4.69 10^6/uL (4.20-5.40); Red Cell Dist. Width 14.3 % (11.5-14.5); White Blood Cell Count 11.1 10^3/uL (4.8-10.8)
[2023-12-22 07:25] LABS: Venous Blood Gas O2 Therapy 21%
[2023-12-22 07:44] LABS: Blood Urea Nitrogen 35 mg/dl (7-17); Calcium 10.5 mg/dl (8.4-10.2); Carbon Dioxide 32 mmol/L (22-30); Chloride 102 mmol/L (98-107); Estimated Creatinine Clearance 52 ml/min; Glucose 88 mg/dl (70-99); Magnesium 2.2 mg/dl (1.6-2.3); Phosphorus 3.7 mg/dl (2.5-4.5); Potassium 4.8 mmol/L (3.5-5.1); Sodium 140 mmol/L (135-145); eGFR > 60.00
[2023-12-22] MEDS: DUONEB 3 ML INH ×4 (07:58→19:42)
[2023-12-22] MEDS: PULMICORT 0.5 MG INH ×2 (07:58→19:42)
[2023-12-22] MEDS: LIPITOR 40 MG PO (08:15)
[2023-12-22] MEDS: LASIX 20 MG PO (08:15)
[2023-12-22] MEDS: ASPIR LOW (ENTERIC COATED) 81 MG PO (08:15)
[2023-12-22] MEDS: TOPROL XL 25 MG PO ×2 (08:16→19:42)
[2023-12-22] MEDS: JARDIANCE 10 MG PO (08:21)
[2023-12-22] MEDS: VIBRAMYCIN 100 MG PO ×2 (08:21→19:42)
[2023-12-22] MEDS: PROTONIX 40 MG PO (08:22)
[2023-12-22] MEDS: DECADRON 4 MG IV ×2 (08:22→19:43)
[2023-12-22] MEDS: NICODERM TRANSDERMAL 21 MG TRANSDERM (08:26)
[2023-12-22] MEDS: MUCINEX 600 MG PO ×2 (08:26→19:42)
--- NOTE | 2023-12-22 09:44 | W.PN.PUL3 ---
Today's Communication / Plan
-
Goal SpO2>88% and <96%
Up OOB as toelrated
PT/OT rec'd skilled rehab upon discharge
Decrease steroids on 12/20 to 4mg IV q12hr --> hopefully can transition to PO prednisone over the next 1-2 days with slow taper
Nebulizers
Doxycycline
NRT with nicotine patch ---> strongly reinforced cigarette cessation - she is in the action phase and is motivated to quit
Outpatient pulmonary follow-up
Assessment
-
77-year-old female with underlying COPD not followed by pulmonary-has been instructed to do so but failed to follow-up, CAD, chronic heart failure reduced EF, hypertension, hypothyroid and mild dementia who presented with increasing shortness of
breath and COPD exacerbation-pulmonary consulted for shortness of breath and COPD exacerbation 12/19/2023.
Impression:
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
Hypoxemic and mild hypercapnic respiratory failure-ABG 12/18/2023-on 2 L--50/70/7 0.33
Recurrent recent hospitalizations including ventilator dependent respiratory failure October and COPD exacerbation november 2023
Hyperkalemia � resolved
Hypercalcemia
Chronic heart failure reduced EF
Conditions present prior to admission:
COPD.
Tobacco addiction.
Respiratory failure-hypoxia/hypercapnia the ventilator dependence October 2023.
CAD.
Heart failure mildly reduced EF.
Hypertension.
Hyperlipidemia.
Hypothyroid.
Migraine
Anxiety.
Depression.
Mild dementia.
Tubal ligation 1978
Plan
Respiratory decompensation likely due to COPD with acute exacerbation with continued cigarette use
Continue O2 if needed to keep SpO2 >88% and <96%
Patient does not have home oxygen-will need to assess prior to discharge
ABG reviewed and reveals mild hypercapnic and hypoxemic respiratory failure
BiPAP if needed-believe we will likely be able to avoid now that she is stable on minimal supplemental O2
DuoNebs
Pulmicort nebulizers BID
Mucolytics
Decadron 4 mg IV every 8 hours- on 12/20 I weaned down to 4mg IV q12hr --> depending on patient's clinical status, could likely transition to PO prednisone in the next 1-2 days
Incentive spirometry
Acapella
Consider vest if difficulties mobilizing secretions
Consider chest physiotherapy if difficulties mobilizing secretions
Cultures not obtained this admission
Influenza negative
Unable to produce sputum
Empiric antibiotics initiated-doxycycline- give 5-7 days total
Trend leukocytosis
Follow blood sugars with goal >100 and <180
Insulin supplementation as needed
Replete K>4, Mg>2
Smoking cessation counseling provided-and will be ongoing
I Rx nicotine patch and she seems to be tolerating it well; I discussed in depth nicotine replacement therapy and the importance of using 2 different modalities as opposed to 1 (i.e., nicotine patch + lozenges or gum, nicotine patient therapy +
Wellbutrin versus Chantix), and also other options that are non-pharmacological, including exercise, meditation, acupuncture or hypnosis.
DVT prophylaxis-on Lovenox
GI prophylaxis-not indicated
Nutrition
Early mobilization/physical therapy
Outpatient pulmonary follow-up
The patient was seen in the pulmonary office 11/21/2023 by Ashley Cornejo NP/Dr. Ordoñez-has appointment with PFT 02/24/2024 at 2 PM
Total time spent today was 35 minutes for this encounter. Time includes reviewing laboratory test/imaging results, reviewing pertinent medical records, obtaining and reviewing medical history, performing an appropriate exam, ordering medications,
tests and procedures. Time also includes documentation of this encounter, coordinating patient care and communicating with other healthcare professionals. Total time does not include separately billed tests performed on this date of service.
Diagnostic data:
Chest x-ray 11/14/2023-hyperinflation
Chest x-ray 12/18/2023-mild apical scarring, mild flattening of diaphragms consistent with COPD, NAD
CT chest/-negative for pulmonary embolism, 1.5 cm low-density adrenal mass likely adrenal adenoma
Cardiac catheterization/-nonobstructing CAD, elevated left ventricular end-diastolic pressure
Spirometry 11/21/2023-FEV1 1.13-55%, FVC 1.95-70%
Subjective Data
-
Date of Service:
Date of Service: December 22, 2023
Chief Complaint: Pulmonary Follow Up and Dyspnea Follow Up
Subjective:
Patient seen today at bedside. She is on 1 L/min nasal cannula and she says she feels okay. She is bringing up phlegm without difficulty. No acute events reported overnight. She denies chest pain, headache, fevers or chills.
Review of Systems
General: Other (Negative unless mentioned above)
Objective Data
Data Reviewed
Vital Signs / I&O / Oxygen:
Vital Signs
Temp Pulse Resp BP Pulse Ox
97.7 F 79 16 133/92 97
12/22/23 07:00 12/22/23 08:16 12/22/23 08:01 12/22/23 08:16 12/22/23 08:01
Intake and Output
12/21/23 12/22/23 12/23/23
06:59 06:59 06:59
Intake Total 960 / 960 300 / 300
Balance 960 / 960 300 / 300
SaO2 97
Nasal Cannula flow liters per 2
minute
Physical Exam
General: Respiratory Distress (n) and Comfortable
HEENT: Normocephalic, Anicteric and Moist Mucous Membranes
Cardiovascular: S1-S2 and Peripheral Edema (Negative)
Respiratory: Wheeze ([place] bilaterally upon expiration), Crackles (Negative), Rhonchi (Negative), Non-Labored Respirations, Accessory Resp Muscle Use (n), Stridor (n) and Other (Diminished breath sounds bilaterally)
GI: Soft, Non Distended, Non Tender and Normal Bowel Sounds
Neurology: AO x 3 and Tremors (Negative)
Skin: Warm, Dry, Cyanosis (n), Jaundice (n) and Rash (n)
Labs/Micro/Reports
Lab Data
12/22/23 07:10
12/22/23 07:10
--- NOTE | 2023-12-22 10:14 | PTCARENOTE ---
Assumed care of pt from previous nurse. Pt denies pain. pt with hand tremors. pt is on tele running nsr with bbb. pt lungs are diminished, pt is on 2L's via nc sating 97%, pt is pleitez. Pt call reece is within reach, pt does not ring jocelyne, bed alarm in
place, will cont to monitor.
[2023-12-22 11:00] VITALS: BP 130/77
--- NOTE | 2023-12-22 12:32 | W.PN.HOSP.TC ---
Today's Communication/Plan
-
Monitor vital signs and see plan
Continue with Decadron, nebs
Nicotine patch
Wean oxygen as tolerated
Will need SNF on discharge
Assessment / Plan
Assessment / Plan
General: Comfortable and Conversant (Slight conversation dyspnea)
HEENT: Anicteric, Moist mucous membranes and Oxygen (Nasal Cannula)
Respiratory: Wheezes; No Accessory Resp Muscle Use
Cardiac: S1/S2 and Regular Rhythm; No Tachycardia
GI: Soft and Non Tender
Musculoskeletal: No Clubbing, No Cyanosis and No Edema
Skin: Warm and Dry
Neuro: Awake, Alert and Nonfocal/grossly intact
Psych: Calm
Acute Hypoxic hypercarbic Respiratory failure secondary to Acute COPD Exacerbation
Currently on 2 L, wean oxygen as tolerated
-Continue supplemental oxygen
Pulmonary following
-Continue Decadron; decrease to 4 every 12
-Continue Duoneb QID and PRN
-Continue Pulmicort neb
-Complete coarse of doxycycline
Hyperkalemia
-Hold Lisinopril
-Continue Lasix
Hypercalcemia
�Calcium normal
- Intact PTH wnl
Non-Obstructive Coronary Artery Disease
-Continue aspirin
Chronic HFmrEF - Patient appears well compensated
-Continue Lasix and Jardiance
-Monitor Is&Os and Daily Weights
Essential Hypertension
-Hold lisinopril; BP not high
-Continue Metoprolol
Hyperlipidemia
-Continue atorvastatin
Hypothyroidism
-Continue levothyroxine
Anxiety/Depression
-Continue mirtazapine
Dementia
-Continue Donepezil
-Monitor sugars and continue coverage insulin
Tobacco Use Disorder
-Encourage smoking cessation
Nicotine patch
DVT proph: Lovenox
Code Status: Full Code
PT/OT rec SNF
Spoke with daughter 6/7, will plan for SNF on discharge
Anticipated Discharge: 24 - 48 hours
Subjective/Interval History
-
Date of Service: December 22, 2023
denies pain
Objective Data
-
Labs:
Laboratory Results
12/22/23
07:10
WBC 11.1 H
Hgb 14.1
Hct 41.8
Plt Count 246
Sodium 140
Potassium 4.8
Chloride 102
Carbon Dioxide 32 H
BUN 35 H
Creatinine 0.8
Glucose 88
Calcium 10.5 H
Vital Signs:
Vital Signs
Temp Pulse Resp BP Pulse Ox
97.8 F 74 16 130/77 97
12/22/23 11:00 12/22/23 11:31 12/22/23 11:31 12/22/23 11:00 12/22/23 11:31
I&O
12/21/23 12/22/23 12/23/23
06:59 06:59 06:59
Intake Total 960 / 960 300 / 300
Balance 960 / 960 300 / 300
[2023-12-22 15:00] VITALS: BP 151/77
[2023-12-22] MEDS: LOVENOX 40 MG SC (17:57)
[2023-12-22] MEDS: ARICEPT 10 MG PO (21:17)
[2023-12-22] MEDS: REMERON 15 MG PO (21:17)
[2023-12-22 23:00] VITALS: BP 146/92
[2023-12-23] MEDS: SYNTHROID 150 MCG PO (05:33)
[2023-12-23 06:00] VITALS: BMI 21.7
[2023-12-23] MEDS: DUONEB 3 ML INH ×4 (06:03→20:18)
[2023-12-23] MEDS: PULMICORT 0.5 MG INH ×2 (06:03→20:18)
[2023-12-23 07:00] VITALS: BP 125/80
[2023-12-23] MEDS: ASPIR LOW (ENTERIC COATED) 81 MG PO (07:51)
[2023-12-23] MEDS: VIBRAMYCIN 100 MG PO ×2 (07:51→19:40)
[2023-12-23] MEDS: LASIX 20 MG PO (07:52)
[2023-12-23] MEDS: PROTONIX 40 MG PO (07:52)
[2023-12-23] MEDS: LIPITOR 40 MG PO (07:52)
[2023-12-23] MEDS: JARDIANCE 10 MG PO (07:52)
[2023-12-23] MEDS: MUCINEX 600 MG PO ×2 (07:52→19:40)
[2023-12-23] MEDS: TOPROL XL 25 MG PO ×2 (07:53→19:43)
[2023-12-23] MEDS: NICODERM TRANSDERMAL 21 MG TRANSDERM (07:54)
[2023-12-23] MEDS: DECADRON 4 MG IV ×2 (07:55→19:40)
[2023-12-23 09:44] LABS: % Basophils 0.2 % (0-2); % Eosinophils 0.3 % (0-6); % Immature Granulocytes 0.8 % (0-0.5); % Lymphocytes 15.4 % (20.5-51.1); % Monocytes 7.1 % (1.7-9.3); % Neutrophils 76.2 % (42.2-75.2); Absolute Immature Granulocytes 0.1 10^3/uL (0-0.05); Absolute Lymphocytes 1.7 10^3/uL (1.2-3.4); Absolute Monocytes 0.8 10^3/uL (0.1-0.6); Absolute Neutrophils 8.2 10^3/uL (1.4-6.5); Hematocrit 45.2 % (37.0-47.0); Hemoglobin 15.2 g/dL (12.0-16.0); Mean Corp Hgb Conc. 33.6 g/dL (33.0-37.0); Mean Corpuscular Hgb 29.8 pg (27.0-31.0); Mean Corpuscular Volume 88.6 fL (81.0-99.0); Mean Platelet Volume 9.3 fL (7.4-10.4); Nucleated Red Blood Cells % 0 %; Platelet Count 287 10^3/uL (130-400); Red Cell Dist. Width 14.2 % (11.5-14.5); White Blood Cell Count 10.7 10^3/uL (4.8-10.8)
--- NOTE | 2023-12-23 09:51 | W.PN.PUL.V3 ---
Today's Communication / Plan
-
. Wean oxygen.
Assess discharge. Supplemental option needs.
Change to prednisone with taper.
Outpatient pulmonary follow-up
Finite course of antibiotics
Assessment
-
77-year-old female with underlying COPD not followed by pulmonary-has been instructed to do so but failed to follow-up, CAD, chronic heart failure reduced EF, hypertension, hypothyroid and mild dementia who presented with increasing shortness of
breath and COPD exacerbation-pulmonary consulted for shortness of breath and COPD exacerbation 12/19/2023.
Impression:
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
Hypoxemic and mild hypercapnic respiratory failure-ABG 12/18/2023-on 2 L--50/70/7 0.33
Recurrent recent hospitalizations including ventilator dependent respiratory failure October and COPD exacerbation november 2023
Hyperkalemia � resolved
Hypercalcemia
Chronic heart failure reduced EF
Conditions present prior to admission:
COPD.
Tobacco addiction.
Respiratory failure-hypoxia/hypercapnia the ventilator dependence October 2023.
CAD.
Heart failure mildly reduced EF.
Hypertension.
Hyperlipidemia.
Hypothyroid.
Migraine
Anxiety.
Depression.
Mild dementia.
Tubal ligation 1978
Plan
Respiratory decompensation likely due to COPD with acute exacerbation with continued cigarette use.
Continue to wean oxygen.
Assess distress. Supplemental oxygen needs prior to discharge-the patient does not have home oxygen
ABG reviewed and reveals mild hypercapnic and hypoxemic respiratory failure
BiPAP if needed-believe we will likely be able to avoid now that she is stable on minimal supplemental O2
DuoNebs. Continue
Pulmicort nebulizers BID
Mucolytics
Discontinue Decadron and begin prednisone taper 12/24/23
Incentive spirometry
Acapella.
Mucus clearing devices including vest therapy, it has difficulties mobilizing secretions
Cultures not obtained this admission
Influenza negative
Unable to produce sputum
Empiric antibiotics initiated-doxycycline--finite course
Follow leukocytosis
Follow blood sugars with goal >100 and <180
Insulin supplementation as needed
Replace electrolytes.
Smoking cessation counseling. Ongoing
Nicotine patch
Other smoking cessation techniques were reviewed at length.
DVT prophylaxis-on Lovenox
GI prophylaxis-not indicated
Nutrition
Early mobilization/physical therapy
Outpatient pulmonary follow-up
The patient was seen in the pulmonary office 11/21/2023 by Ashley Cornejo NP/Dr. Ordoñez-has appointment with PFT 02/24/2024 at 2 PM
Diagnostic data:
Chest x-ray 11/14/2023-hyperinflation
Chest x-ray 12/18/2023-mild apical scarring, mild flattening of diaphragms consistent with COPD, NAD
CT chest-negative for pulmonary embolism, 1.5 cm low-density adrenal mass likely adrenal adenoma
Cardiac catheterization-nonobstructing CAD, elevated left ventricular end-diastolic pressure
Spirometry 11/21/2023-FEV1 1.13-55%, FVC 1.95-70%
Subjective Data
-
Date of Service:
Date of Service: December 23, 2023
Chief Complaint: Pulmonary Follow Up and Dyspnea Follow Up
Subjective:
Feels somewhat better, less short of breath, less dyspnea on exertion, forgetful, no abdominal pain
Review of Systems
General: Other ( per HPI)
Objective Data
Data Reviewed
Vital Signs / I&O:
Vital Signs
Temp Pulse Resp BP Pulse Ox
98.6 F 81 20 125/80 94
12/23/23 07:00 12/23/23 07:00 12/23/23 07:00 12/23/23 07:00 12/23/23 07:00
Intake and Output
06/09/24 06/10/24 06/11/24
06:59 06:59 06:59
Intake Total 300 / 300 720 / 720
Balance 300 / 300 720 / 720
SaO2: 94
Nasal Cannula flow liters per minute: 1
Physical Exam
General: Respiratory Distress (n) and Comfortable
HEENT: Normocephalic, Anicteric and Moist Mucous Membranes
Cardiovascular: S1-S2 and Peripheral Edema (Negative)
Respiratory: Wheeze (Pratt bilaterally upon expiration), Crackles (Negative), Rhonchi (Negative), Non-Labored Respirations, Accessory Resp Muscle Use (n), Stridor (n) and Other (Diminished breath sounds bilaterally)
GI: Soft, Non Distended, Non Tender and Normal Bowel Sounds
Neurology: AO x 3 and Tremors (Negative)
Skin: Warm, Dry, Cyanosis (n), Jaundice (n) and Rash (n)
Labs/Micro/Reports
Lab Data
12/23/23 08:44
[2023-12-23 10:03] LABS: Blood Urea Nitrogen 29 mg/dl (7-17); Calcium 10.5 mg/dl (8.4-10.2); Carbon Dioxide 29 mmol/L (22-30); Chloride 100 mmol/L (98-107); Estimated Creatinine Clearance 59 ml/min; Glucose 127 mg/dl (70-99); Sodium 140 mmol/L (135-145); eGFR > 60.00
[2023-12-23] MEDS: COLACE 100 MG PO (11:09)
[2023-12-23] MEDS: MIRALAX 17 GRAMS PO (11:09)
--- NOTE | 2023-12-23 11:26 | CM ---
Patient seen bedside.
Await medical clearance for d/c to skilled rehab.
Oxygen 1 liter NC, still with desats with ambulation.
Monitoring labs.
Await updated PT/OT notes.
plan: skilled rehab when stable and bed available.
--- NOTE | 2023-12-23 11:35 | W.PN.HOSP.TC ---
Addendum entered and electronically signed by Bhanu Vera MD 12/23/23 14:40:
Called daughter, left voicemail
Original Note:
Today's Communication/Plan
-
Monitor vital signs and see plan
Wean oxygen as tolerated
Continue with Decadron, hopeful transition to prednisone in next 24 hours
Continue with nicotine patch
SNF on discharge
Assessment / Plan
Assessment / Plan
General: Comfortable and Conversant (Slight conversation dyspnea)
HEENT: Anicteric, Moist mucous membranes and Oxygen (Nasal Cannula)
Respiratory: Wheezes; No Accessory Resp Muscle Use
Cardiac: S1/S2 and Regular Rhythm; No Tachycardia
GI: Soft and Non Tender
Musculoskeletal: No Clubbing, No Cyanosis and No Edema
Skin: Warm and Dry
Neuro: Awake, Alert and Nonfocal/grossly intact
Psych: Calm
Acute Hypoxic hypercarbic Respiratory failure secondary to Acute COPD Exacerbation
Currently on 1-22 L, wean oxygen as tolerated
-Continue supplemental oxygen
Pulmonary following
-Continue Decadron; decrease to every 12
-Continue Duoneb QID and PRN
-Continue Pulmicort neb
-Complete coarse of doxycycline
Hyperkalemia
-Hold Lisinopril
-Continue Lasix
Hypercalcemia
�Calcium normal
- Intact PTH wnl
Non-Obstructive Coronary Artery Disease
-Continue aspirin
Chronic HFmrEF - Patient appears well compensated
-Continue Lasix and Jardiance
-Monitor Is&Os and Daily Weights
Essential Hypertension
-Hold lisinopril; BP not high
-Continue Metoprolol
Hyperlipidemia
-Continue atorvastatin
Hypothyroidism
-Continue levothyroxine
Anxiety/Depression
-Continue mirtazapine
Dementia
-Continue Donepezil
-Monitor sugars and continue coverage insulin
Tobacco Use Disorder
-Encourage smoking cessation
Nicotine patch
DVT proph: Lovenox
Code Status: Full Code
PT/OT rec SNF
Spoke with daughter 6/7, will plan for SNF on discharge
Anticipated Discharge: Within 24 hours
Subjective/Interval History
-
Date of Service: December 23, 2023
denies chest pain
Objective Data
-
Labs:
Laboratory Results
12/23/23
08:44
WBC 10.7
Hgb 15.2
Hct 45.2
Plt Count 287
Sodium 140
Potassium 4.0
Chloride 100
Carbon Dioxide 29
BUN 29 H
Creatinine 0.7
Glucose 127 H
Calcium 10.5 H
Vital Signs:
Vital Signs
Temp Pulse Resp BP Pulse Ox
98.6 F 81 20 125/80 96
12/23/23 07:00 12/23/23 07:00 12/23/23 07:00 12/23/23 07:00 12/23/23 10:28
I&O
12/22/23 12/23/23 12/24/23
06:59 06:59 06:59
Intake Total 300 / 300 720 / 720
Balance 300 / 300 720 / 720
[2023-12-23 14:12] VITALS: PULSE 89; O2SAT 89
[2023-12-23 15:00] VITALS: BP 121/69
[2023-12-23 16:37] VITALS: BP 127/85; PULSE 86; O2SAT 92
[2023-12-23] MEDS: LOVENOX 40 MG SC (17:22)
[2023-12-23] MEDS: ARICEPT 10 MG PO (19:41)
[2023-12-23] MEDS: REMERON 15 MG PO (19:41)
[2023-12-23] MEDS: COLACE PO (19:48)
[2023-12-23 23:10] VITALS: BP 141/72
[2023-12-24 05:35] VITALS: BMI 21.7
[2023-12-24] MEDS: SYNTHROID 150 MCG PO (05:40)
[2023-12-24 07:08] VITALS: BP 133/78
[2023-12-24] MEDS: VIBRAMYCIN 100 MG PO (07:30)
[2023-12-24] MEDS: TOPROL XL 25 MG PO (07:31)
[2023-12-24] MEDS: LIPITOR 40 MG PO (07:31)
[2023-12-24] MEDS: PROTONIX 40 MG PO (07:31)
[2023-12-24] MEDS: ASPIR LOW (ENTERIC COATED) 81 MG PO (07:31)
[2023-12-24] MEDS: DELTASONE 40 MG PO (07:32)
[2023-12-24] MEDS: NICODERM TRANSDERMAL 21 MG TRANSDERM (07:32)
[2023-12-24] MEDS: LASIX 20 MG PO (07:33)
[2023-12-24] MEDS: JARDIANCE 10 MG PO (07:33)
[2023-12-24] MEDS: MUCINEX 600 MG PO (07:33)
[2023-12-24] MEDS: DECADRON IV (07:34)
[2023-12-24] MEDS: MIRALAX 17 GRAMS PO (07:34)
[2023-12-24] MEDS: COLACE 100 MG PO (07:34)
[2023-12-24] MEDS: PULMICORT 0.5 MG INH (07:59)
[2023-12-24] MEDS: DUONEB 3 ML INH ×2 (08:00→11:50)
[2023-12-24 09:22] LABS: % Basophils 0.2 % (0-2); % Eosinophils 1.8 % (0-6); % Immature Granulocytes 0.9 % (0-0.5); % Lymphocytes 23.3 % (20.5-51.1); % Monocytes 6.8 % (1.7-9.3); Absolute Eosinophils 0.2 10^3/uL (0-0.7); Absolute Immature Granulocytes 0.1 10^3/uL (0-0.05); Absolute Lymphocytes 2.8 10^3/uL (1.2-3.4); Absolute Monocytes 0.8 10^3/uL (0.1-0.6); Absolute Neutrophils 8.1 10^3/uL (1.4-6.5); Hematocrit 45.8 % (37.0-47.0); Hemoglobin 15.1 g/dL (12.0-16.0); Mean Corpuscular Hgb 29.2 pg (27.0-31.0); Mean Corpuscular Volume 88.4 fL (81.0-99.0); Mean Platelet Volume 9.1 fL (7.4-10.4); Nucleated Red Blood Cells % 0 %; Platelet Count 282 10^3/uL (130-400); Red Blood Cell Count 5.18 10^6/uL (4.20-5.40); Red Cell Dist. Width 14.1 % (11.5-14.5); White Blood Cell Count 12.1 10^3/uL (4.8-10.8)
[2023-12-24 09:50] LABS: Blood Urea Nitrogen 28 mg/dl (7-17); Calcium 10.5 mg/dl (8.4-10.2); Carbon Dioxide 30 mmol/L (22-30); Chloride 98 mmol/L (98-107); Estimated Creatinine Clearance 59 ml/min; Glucose 83 mg/dl (70-99); Potassium 4.1 mmol/L (3.5-5.1); Sodium 139 mmol/L (135-145); eGFR > 60.00
--- NOTE | 2023-12-24 10:21 | W.PN.PUL.V3 ---
Today's Communication / Plan
-
Prednisone taper
Wean oxygen
Increase activity
Finite course of antibiotics
Outpatient pulmonary follow-up
Assessment
-
77-year-old female with underlying COPD not followed by pulmonary-has been instructed to do so but failed to follow-up, CAD, chronic heart failure reduced EF, hypertension, hypothyroid and mild dementia who presented with increasing shortness of
breath and COPD exacerbation-pulmonary consulted for shortness of breath and COPD exacerbation 12/19/2023.
Impression:
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
Hypoxemic and mild hypercapnic respiratory failure-ABG 12/18/2023-on 2 L--50/70/7 0.33
Recurrent recent hospitalizations including ventilator dependent respiratory failure October and COPD exacerbation november 2023
Hyperkalemia � resolved
Hypercalcemia
Chronic heart failure reduced EF
Conditions present prior to admission:
COPD.
Tobacco addiction.
Respiratory failure-hypoxia/hypercapnia the ventilator dependence October 2023.
CAD.
Heart failure mildly reduced EF.
Hypertension.
Hyperlipidemia.
Hypothyroid.
Migraine
Anxiety.
Depression.
Mild dementia.
Tubal ligation 1978
Plan
Respiratory decompensation likely due to COPD with acute exacerbation with continued cigarette use.
Continue to wean oxygen
Assess discharge supplemental oxygen needs prior to discharge-looks like she will be going to [facility] rehab
ABG reviewed and reveals mild hypercapnic and hypoxemic respiratory failure
BiPAP if needed-believe we will likely be able to avoid now that she is stable on minimal supplemental O2
Continue with DuoNebs and Pulmicort nebulizers
Continue with mucolytic's
Prednisone taper
Encouraged incentive spirometry and Acapella
Mucus clearing devices including vest therapy, it has difficulties mobilizing secretions
Cultures not obtained this admission
Influenza negative
Unable to produce sputum
Empiric antibiotics initiated-doxycycline--finite course
Monitor leukocytosis
Follow blood sugars with goal >100 and <180
Insulin supplementation as needed
Continue to replace electrolytes as needed
Smoking cessation counseling-ongoing
Nicotine patch
Other smoking cessation techniques were reviewed at length.
DVT prophylaxis-on Lovenox
GI prophylaxis-not indicated
Nutrition
Early mobilization/physical therapy
Patient will be discharged to [facility]-rehab
Eventual outpatient pulmonary follow-up
The patient was seen in the pulmonary office 11/21/2023 by Ashley Cornejo NP/Dr. Ordoñez-has appointment with PFT 02/24/2024 at 2 PM
Diagnostic data:
Chest x-ray 11/14/2023-hyperinflation
Chest x-ray 12/18/2023-mild apical scarring, mild flattening of diaphragms consistent with COPD, NAD
CT chest-negative for pulmonary embolism, 1.5 cm low-density adrenal mass likely adrenal adenoma
Cardiac catheterization-nonobstructing CAD, elevated left ventricular end-diastolic pressure
Spirometry 11/21/2023-FEV1 1.13-55%, FVC 1.95-70%
Subjective Data
-
Date of Service:
Date of Service: December 24, 2023
Chief Complaint: Pulmonary Follow Up and Dyspnea Follow Up
Subjective:
Feels better, less wheezy, wants to shower, no chest pain or abdominal pain
Review of Systems
General: Other (Per HPI)
Objective Data
Data Reviewed
Vital Signs / I&O:
Vital Signs
Temp Pulse Resp BP Pulse Ox
97.4 F 70 16 133/78 97
12/24/23 07:08 12/24/23 08:03 12/24/23 08:03 12/24/23 07:08 12/24/23 07:30
Intake and Output
12/23/23 12/24/23 12/25/23
06:59 06:59 06:59
Intake Total 720 / 720 1380 / 1380
Balance 720 / 720 1380 / 1380
SaO2: 97
Nasal Cannula flow liters per minute: 1
Physical Exam
General: Respiratory Distress (n) and Comfortable
HEENT: Normocephalic, Anicteric and Moist Mucous Membranes
Cardiovascular: S1-S2 and Peripheral Edema (Negative)
Respiratory: Wheeze ([place] bilaterally upon expiration), Crackles (Negative), Rhonchi (Negative), Non-Labored Respirations, Accessory Resp Muscle Use (n), Stridor (n) and Other (Diminished breath sounds bilaterally)
GI: Soft, Non Distended, Non Tender and Normal Bowel Sounds
Neurology: AO x 3 and Tremors (Negative)
Skin: Warm, Dry, Cyanosis (n), Jaundice (n) and Rash (n)
Labs/Micro/Reports
Lab Data
12/24/23 08:41
12/24/23 08:41
--- NOTE | 2023-12-24 10:53 | W.PN.HOSP.TC ---
Addendum entered and electronically signed by Bhanu Vera MD 12/24/23 13:09:
Per family preservation caseworker, patient accepted to SNF. Will discharge patient today
Time of discharge 38 minutes
Original Note:
Today's Communication/Plan
-
monitor vitals
see plan
home o2 assessment
now on prednisone
cw nebs
dc planning
Assessment / Plan
Assessment / Plan
General: Comfortable and Conversant
HEENT: Anicteric, Moist mucous membranes and Oxygen (Nasal Cannula)
Respiratory: Wheezes; No Accessory Resp Muscle Use
Cardiac: S1/S2 and Regular Rhythm; No Tachycardia
GI: Soft and Non Tender
Musculoskeletal: No Edema
Neuro: Awake, Alert and Nonfocal/grossly intact
Psych: Calm
Acute Hypoxic hypercarbic Respiratory failure secondary to Acute COPD Exacerbation
Currently on 1-2 L, wean oxygen as tolerated
-Continue supplemental oxygen
Pulmonary following
-now started on prednisone; will do taper on dc
-Continue Duoneb QID and PRN
-Continue Pulmicort neb
-Complete coarse of doxycycline
home o2 eval
Hyperkalemia
-Hold Lisinopril; now BP is normal so start when BP is high
-Continue Lasix
Hypercalcemia
�Calcium normal
- Intact PTH wnl
Non-Obstructive Coronary Artery Disease
-Continue aspirin
Chronic HFmrEF - Patient appears well compensated
-Continue Lasix and Jardiance
-Monitor Is&Os and Daily Weights
Essential Hypertension
-Hold lisinopril; BP not high
-Continue Metoprolol
Hyperlipidemia
-Continue atorvastatin
Hypothyroidism
-Continue levothyroxine
Anxiety/Depression
-Continue mirtazapine
Dementia
-Continue Donepezil
-Monitor sugars and continue coverage insulin
Tobacco Use Disorder
-Encourage smoking cessation
Nicotine patch
DVT proph: Lovenox
Code Status: Full Code
PT/OT rec SNF
Spoke with daughter 12/19, will plan for SNF on discharge
called 12/22; left voicemail
I spent a total of 52 minutes with the patient or on the floor. More than 50% of this time involved counseling and coordination of care.
Anticipated Discharge: Within 24 hours
Subjective/Interval History
-
Date of Service: December 24, 2023
denies pain
Objective Data
-
Labs:
Laboratory Results
12/24/23
08:41
WBC 12.1 H
Hgb 15.1
Hct 45.8
Plt Count 282
Sodium 139
Potassium 4.1
Chloride 98
Carbon Dioxide 30
BUN 28 H
Creatinine 0.7
Glucose 83
Calcium 10.5 H
Vital Signs:
Vital Signs
Temp Pulse Resp BP Pulse Ox
97.4 F 70 16 133/78 97
12/24/23 07:08 12/24/23 08:03 12/24/23 08:03 12/24/23 07:08 12/24/23 10:21
I&O
12/23/23 12/24/23 12/25/23
06:59 06:59 06:59
Intake Total 720 / 720 1380 / 1380
Balance 720 / 720 1380 / 1380
[2023-12-24 12:24] VITALS: BP 145/80
--- NOTE | 2023-12-24 12:34 | CM ---
Addendum entered by Leonor Fields 12/24/23 15:51:
Covid negative.
Addendum entered by Leonor Fields 12/24/23 14:29:
Home oxygen assessment completed by nursing.
Oxygen saturation with ambulation off oxygen 91%.
Covid test sent, result pending.
IMM completed.
Daughter will transport.
Addendum entered by Leonor Fields 12/24/23 13:58:
[facility]
Report# [id number]

Original Note:
Patient for skilled rehab today, daughter will transport
Home oxygen assessment ordered.
requested Covid test.
Aneta from [facility] will call when bed is available.
No auth required.
Plan: skilled rehab today.
[2023-12-24] MEDS: LOVENOX SC (12:37)
--- NOTE | 2023-12-24 13:12 | W.DCSUMMARY ---
Discharge Summary
Discharge Data
Date of Admission: 12/18/23
Date of Discharge: 12/24/23
-
Pending Results: No
Hospital Course
77-year-old female with past medical history of CAD, CHF, essential hypertension, hyperlipidemia, hypertension, anxiety/depression, dementia, COPD came to the hospital with acute hypoxic hypercarbic respiratory failure secondary to acute COPD
exacerbation. Patient was seen by pulmonary throughout hospitalization. Patient was initially started on IV steroids which was later transitioned to oral prednisone with taper prior to discharge. Patient continued to require oxygenation
throughout hospitalization. Patient also had hypercalcemia for which she was instructed to follow-up outpatient. Patient breathing continues to improve throughout hospitalization. Patient was also evaluated by physical therapy who recommended
SNF. Once patient breathing was better, she was then discharged to SNF with instructions to follow-up with all her physicians outpatient.
Discharge Plan
-
Patient Disposition: [facility]/SNF
Discharge Diagnosis/Procedures: Acute Hypoxic hypercarbic Respiratory failure secondary to Acute COPD Exacerbation
Hypercalcemia
Hyperkalemia
Condition: Fair
Diet: As tolerated
Activity: As tolerated
Driving Restrictions: As prior to admission
Bathing Restrictions: None
Activity Restrictions/Additional Instructions:
Continue doxycycline for 1 more day
Please follow-up with your primary care provider for hypercalcemia
Referrals:
Tony Lim MD [Active] - in three to four weeks
(See nurse practitioner within 3-4-going to [facility] rehab first
Has scheduled appointment 02/24/2024 with PFTs at 2 PM)
UNKNOWN - PT DOES,NOT KNOW [Unknown Provider] - in less than 1 week
Prescriptions:
New
guaifenesin 600 mg Tablet Extended Release 12hr
600 mg PO Q12 Qty: 0 0RF
nicotine 21 mg/24 hr Patch 24 Hour
21 mg transdermal DAILY Qty: 0 0RF
budesonide 0.5 mg/2 mL Suspension For Nebulization
0.5 mg inhalation R BID Qty: 0 0RF
docusate sodium 100 mg Capsule
100 mg PO BID Qty: 0 0RF
prednisone 10 mg Tablet
See Rx Instructions .ROUTE .COMPLEX Qty: 30 0RF
Rx Instructions:
Take By Mouth:
40 mg daily x3 days, 30 mg daily x3 days,
20 mg daily x3 days, 10 mg daily x3 days.
polyethylene glycol 3350 [HealthyLax] 17 gram Powder In Packet
17 g PO DAILY Qty: 0 0RF
doxycycline hyclate 100 mg Capsule
100 mg PO Q12 Qty: 2 0RF
pantoprazole 40 mg Tablet,Delayed Release (Dr/Ec)
40 mg PO DAILY Qty: 0 0RF
Continued
atorvastatin 40 mg Tablet
40 mg PO DAILY
donepezil 10 mg Tablet
10 mg PO HS
levothyroxine 150 mcg Tablet
150 mcg PO DAILY
albuterol sulfate 90 mcg/actuation Hfa Aerosol Inhaler
2 puff INHALATION R Q4HPRN PRN (Reason: sob/wheezing)
Anoro Ellipta 62.5-25 mcg/actuation Blister With Device
1 inh INHALATION R DAILY
Patient Comments:
12/18/2023: Pt prescribed Trelegy Ellipta, but ran out and has been using Anoro
aspirin 81 mg Tablet,Delayed Release (Dr/Ec)
81 mg PO DAILY Qty: 30 0RF
mirtazapine 15 mg tablet
15 mg PO HS
omega-3 fatty acids-fish oil 684-1,200 mg Capsule,Delayed Release(Dr/Ec)
1 cap PO DAILY
ipratropium-albuterol 0.5 mg-3 mg(2.5 mg base)/3 mL solution for nebulization
3 ml inhalation R Q8HPRN PRN (Reason: shortness of breath)
lisinopril 5 mg tablet
5 mg PO DAILY
furosemide 20 mg tablet
20 mg PO DAILY
Jardiance 10 mg tablet
10 mg PO DAILY
metoprolol succinate 25 mg tablet extended release 24 hr
25 mg PO BID
Discharge Orders:
Discharge Patient (As Directed); Ordered 12/24/23
Ordered By: Bhanu Vera
Discharge Date and Time
Discharge Date/Time: 12/24/23 15:04
Print Language: RUSSIAN
[2023-12-24 14:41] LABS: COVID-19 Antigen Negative (Negative)
== END 2023-12-24 15:04 | DRG 190 ==
LOC: 4 WEST ACU 22:42
PROVIDERS: Internal Medicine Critical Care Medicine; Physician Assistant; Physician Assistant Medical; ADMITTING PHYSICIAN Hospitalist; ATTENDING PHYSICIAN Internal Medicine; CONSULT PHYSICIAN Internal Medicine Critical Care Medicine; EMERGENCY PHYSICIAN Emergency Medicine; FAMILY PHYSICIAN Student in an Organized Health Care Education/Training Program
PROC: 5A0935A Assistance with Respiratory Ventilation, Less than 24 Consecutive Hours, High Flow/Velocity Cannula (ICD-10-PCS; 2023-12-23)
DX: J44.1 Chronic obstructive pulmonary disease with (acute) exacerbation (principal); J96.01 Acute respiratory failure with hypoxia; J96.02 Acute respiratory failure with hypercapnia; I50.22 Chronic systolic (congestive) heart failure; F03.A4 Unspecified dementia, mild, with anxiety; F03.A3 Unspecified dementia, mild, with mood disturbance; I25.10 Atherosclerotic heart disease of native coronary artery without angina pectoris; F17.210 Nicotine dependence, cigarettes, uncomplicated; E03.9 Hypothyroidism, unspecified; F32.A Depression, unspecified; E83.52 Hypercalcemia; E78.5 Hyperlipidemia, unspecified; G43.909 Migraine, unspecified, not intractable, without status migrainosus; D72.829 Elevated white blood cell count, unspecified; I11.0 Hypertensive heart disease with heart failure; E87.5 Hyperkalemia; Z79.51 Long term (current) use of inhaled steroids; Z79.890 Hormone replacement therapy; Z79.82 Long term (current) use of aspirin; Z88.5 Allergy status to narcotic agent; Z11.52 Encounter for screening for COVID-19; Z79.84 Long term (current) use of oral hypoglycemic drugs
CPT/HCPCS: 71046; 80048; 80053; 82330; 82805; 83735; 83970; 84100; 84443; 85025; 85027; 87811; 94640; 96374; 97116; 97166; 97535; 99285

== ENCOUNTER → 2024-01-29 09:17 | Outpatient (REF) | payer MEDICARE, OTHER, SELFPAY | LOC: HWRCS 09:17 | PROVIDERS: ATTENDING PHYSICIAN Internal Medicine Interventional Cardiology; FAMILY PHYSICIAN Student in an Organized Health Care Education/Training Program | DX: I42.8 Other cardiomyopathies (principal) | CPT/HCPCS: 93306 ==

== ENCOUNTER 2024-02-24 21:30 | Emergency (ER) | payer MEDICARE, OTHER, SELFPAY ==
[2024-02-24 21:38] VITALS: BP 128/69
[2024-02-24 21:44] VITALS: BMI 21.7
[2024-02-24 21:57] LABS: % Basophils 0.8 % (0-2); % Eosinophils 17.7 % (0-6); % Immature Granulocytes 0.2 % (0-0.5); % Lymphocytes 23.8 % (20.5-51.1); % Monocytes 7.6 % (1.7-9.3); % Neutrophils 49.9 % (42.2-75.2); Absolute Basophils 0.1 10^3/uL (0-0.2); Absolute Eosinophils 1.8 10^3/uL (0-0.7); Absolute Lymphocytes 2.4 10^3/uL (1.2-3.4); Absolute Monocytes 0.8 10^3/uL (0.1-0.6); Hematocrit 41.5 % (37.0-47.0); Hemoglobin 14.2 g/dL (12.0-16.0); Mean Corp Hgb Conc. 34.2 g/dL (33.0-37.0); Mean Corpuscular Hgb 29.7 pg (27.0-31.0); Mean Corpuscular Volume 86.8 fL (81.0-99.0); Mean Platelet Volume 9.1 fL (7.4-10.4); Nucleated Red Blood Cells % 0 %; Platelet Count 241 10^3/uL (130-400); Red Blood Cell Count 4.78 10^6/uL (4.20-5.40); Red Cell Dist. Width 13.8 % (11.5-14.5)
[2024-02-24 22:00] VITALS: BP 96/74
[2024-02-24 22:22] LABS: ALT (SGPT) 30 U/L (0-35); AST (SGOT) 38 U/L (14-36); Albumin 2.9 g/dl (3.5-5.0); Alkaline Phosphatase 59 U/L (38-126); Blood Urea Nitrogen 14 mg/dl (7-17); Calcium 10.4 mg/dl (8.4-10.2); Carbon Dioxide 29 mmol/L (22-30); Chloride 98 mmol/L (98-107); Estimated Creatinine Clearance 63 ml/min; Glucose 95 mg/dl (70-99); Potassium 3.9 mmol/L (3.5-5.1); Sodium 135 mmol/L (135-145); Total Bilirubin 0.3 mg/dl (0.2-1.3); Total Protein 6.6 g/dl (6.3-8.2); eGFR > 60.00
[2024-02-24 23:00] VITALS: BP 108/73
[2024-02-25] VITALS: BP 122/74
--- NOTE | 2024-02-25 00:26 | ED.GENMED ---
History of Present Illness
General
Chief Complaint: Breathing Problem
Time Seen by Provider: 02/25/24 00:26
History of Present Illness
History of Present Illness:
HPI: Patient came in by ambulance due to chest breath. She did not have much improvement initially with her albuterol however a DuoNeb given by EMS did help. She was also given some oxygen by EMS. Earlier in the day she had pulmonary function
testing and then after she returned home (approximately 7 hours ago, she developed some upper abdominal type).
EXAM:
GENERAL: The patient is in mild respiratory distress
HEENT: Moist oral mucosa
CARDIOVASCULAR: No murmurs, normal heart rate, regular rhythm, No chest wall tenderness
PULMONARY: Mild respiratory distress, breath sounds are equally decreased with scant wheeze
ABDOMEN: Soft with no peritoneal signs, no tenderness
NEUROLOGIC: Good strength all extremities, no coordination deficits
PSYCHIATRIC: Appropriate mental status, reasonable insight and judgement
EXTREMITIES: Nontender, no edema, moves all extremities equally
SKIN: No rash, no lesions
TIME OF INITIAL ENCOUNTER: 12:20 AM
NUMBER AND COMPLEXITY OF PROBLEMS ADDRESSED AT THE ENCOUNTER
� Chronic conditions affecting care: COPD, former smoker, A-fib, hyperlipidemia, hypothyroidism, depression
� Acute Exacerbation and/or Progression of Chronic Illness: This is an acute but recurring problem
� Differential Diagnosis includes: COPD exacerbation, viral syndrome, CHF, doubt ACS
AMOUNT AND/OR COMPLEXITY OF DATA TO BE REVIEWED AND ANALYZED
� I performed an independent evaluation of and my interpretation is:
EKG: Sinus 77, left axis deviation, IVCD
CT:
X-rays: Chest x-ray consistent with COPD with no acute findings
Laboratory Studies: Normal, chemistries unremarkable, troponin 0.020 repeat troponin less than 0.012
Other:
� Review of other/old records: I reviewed records. The patient was admitted here 2 months ago with COPD exacerbation and was started on IV steroids. At that time she was also on oxygen.
� Clinical information was obtained by an independent historian: I spoke to the daughter at bedside
� Prescriptions/Medications Considered but not given:
� Further testing considered but not performed:
RISK OF COMPLICATIONS AND/OR MORBIDITY OR MORTALITY OF PATIENT MANAGEMENT
� Social determinants of health affecting care: Lives at home
� Discussion with other providers:
� Escalation of care including admission/observation vs risk of discharge considered: The patient does have some ongoing mild respiratory distress with decreased breath sounds. Will give additional DuoNeb and start IV steroids.
Her room air sats are as low as 91%. The patient was given additional DuoNeb. I reassessed patient at 2:15 AM. The patient's room air sat is 93%. Her respiratory rate is minimally elevated but her overall work of breathing is improved. I
offered and considered keeping the patient in the hospital. The daughter had some hesitation however the patient ultimately preferred to go home which I feel is reasonable. She is encouraged to return here if worse. Will give a short course of
steroids as an outpatient as well.
Past History
Past History
ED Past Medical History: COPD and Hypothyroidism
ED Past Surgical History: Negative Cardiac
Social History
Tobacco: Former smoker
Alcohol: None
Drug: None
Personal: Single
Living: alone
Employment: Retired
Family History
Family History: Other (Noncontributory)
Phy Exam
Physical Exam
Physical Exam:
See HPI
Scores
Heart Failure Risk
Heart Failure Risk Score: Not Applicable
Course
Orders/Labs/Results
Orders:
Orders
02/24/24 21:37
EKG [Electrocardiogram (*1)] Urgent
Reason for Study: Shortness of Breath
EKG- Treatment ONCE
02/24/24 21:47
O2 Therapy [RESP] Urgent
Titrate/Wean O2 to maintain O2 sat greater than (%): 90
Special Instructions: Maintain sats >/=90%
Pulse Ox/spot Check [RESP] Urgent
Quantity: 1
Special Instructions: ON ROOM AIR
02/24/24 21:49
Complete Blood Count/With Diff Urgent
Comprehensive Metabolic Panel Urgent
Troponin I Urgent
02/25/24 00:35
Ipratropium/Albuterol Sulfate [Duoneb] 3 ml INH R NOW ONE
MethylPREDNISolone PF [Solu-Medrol Pf] 125 mg IV NOW STA
02/25/24 00:36
CR Chest - 2 Views Urgent
Comment:
Reason For Exam: sob
02/25/24 01:06
Troponin I Urgent
02/25/24 01:36
Ipratropium/Albuterol Sulfate [Duoneb] 3 ml INH R NOW STA
Abnormal Lab Results
02/24/24
21:49
Absolute Monos (auto) 0.8 H 10^3/uL
(0.1-0.6)
Absolute Eos (auto) 1.8 H 10^3/uL
(0-0.7)
Eosinophils % 17.7 H %
(0-6)
Calcium 10.4 H mg/dl
(8.4-10.2)
AST 38 H U/L
(14-36)
Albumin 2.9 L g/dl
(3.5-5.0)
02/24/24 21:49
02/24/24 21:49
Vital Signs
Initial and Last Documented VS:
Initial Vital Signs
Temp Pulse Resp BP Pulse Ox
97.5 F 81 20 128/69 96
02/24/24 21:38 02/24/24 21:38 02/24/24 21:38 02/24/24 21:38 02/24/24 21:38
Last Documented Vital Signs
Temp Pulse Resp BP Pulse Ox
97.5 F 92 20 111/83 91
02/24/24 21:38 02/25/24 02:15 02/25/24 02:15 02/25/24 02:00 02/25/24 02:15
*Critical Care Note
Total Time (30-74mins, 75-104mins- exclusive of procedures): Not Applicable
ED Attending Note
-
Portions of this chart may have been created with voice recognition software.� Occasional wrong word or��sound alike� substitutions may have occurred due to the inherent limitations of voice recognition software.
Discharge Plan
Departure
Patient Disposition: Home (Routine Discharge)
Date of Disposition: 02/25/24
Time of Disposition: 02:18
Patient with high blood pressure during this ER visit?: Yes
Discharge Problem:
COPD exacerbation
Instructions: Exacerbation of COPD (DC)
Prescriptions:
New
prednisone 50 mg tablet
50 mg PO DAILY Qty: 4 0RF
No Action
atorvastatin 40 mg Tablet
40 mg PO DAILY
donepezil 10 mg Tablet
10 mg PO HS
levothyroxine 150 mcg Tablet
150 mcg PO DAILY
albuterol sulfate 90 mcg/actuation Hfa Aerosol Inhaler
2 puff INHALATION R Q4HPRN PRN (Reason: sob/wheezing)
aspirin 81 mg Tablet,Delayed Release (Dr/Ec)
81 mg PO DAILY Qty: 30 0RF
mirtazapine 15 mg tablet
15 mg PO HS
omega-3 fatty acids-fish oil 684-1,200 mg Capsule,Delayed Release(Dr/Ec)
1 cap PO DAILY
furosemide 20 mg tablet
20 mg PO DAILY
Jardiance 10 mg tablet
10 mg PO DAILY
metoprolol succinate 25 mg tablet extended release 24 hr
25 mg PO BID
nicotine 21 mg/24 hr Patch 24 Hour
21 mg transdermal DAILY Qty: 0 0RF
Trelegy Ellipta
1 puff inhalation DAILY
albuterol sulfate
1 dose inhalation TID
Patient Comments:
unsure of mg
lisinopril 5 mg Tablet
5 mg PO DAILY
Referrals:
Eloisa Maldonado DO [Family Provider] -
Activity Restrictions/Additional Instructions:
Cardiac blood work unremarkable. I do not see any clear abnormality on the chest x-ray and it appears more consistent with COPD. We did give you a couple of DuoNeb's tonight and you also received a DuoNeb prior to arrival. Follow-up with your
primary care doctor and transitional care nurse. Next dose of steroids later on this morning. I sent a prescription for steroids/prednisone to your pharmacy. Please return here if worse.
Interventions
Interventions:
*Risk Screen - Suicide Last Done: 02/24/24 21:43
*General Assessment Last Done: 02/24/24 21:43
*Neglect/Abuse Screening Last Done: 02/24/24 21:43
ED- Fall Risk Assessment Last Done: 02/24/24 21:47
*ED COVID-19 Vaccine History Last Done: 02/24/24 21:43
ED- Cardiac Assessment Last Done: 02/24/24 23:15
ED- Pulmonary Assessment Last Done: 02/24/24 23:15
Discharge Date and Time
Print Language: ARGENTINE
[2024-02-25] MEDS: DUONEB 3 ML INH ×2 (00:42→01:40)
[2024-02-25] MEDS: SOLU-MEDROL PF 125 MG IV (00:43)
[2024-02-25 01:00] VITALS: BP 149/101
[2024-02-25 01:37] LABS: Troponin I < 0.012 ng/ml
[2024-02-25 01:39] VITALS: BP 122/69
[2024-02-25 02:00] VITALS: BP 111/83
== END 2024-02-25 02:40 | disposition home or self-care (01) ==
LOC: EMR 21:30
PROVIDERS: Emergency Medicine; EMERGENCY PHYSICIAN Emergency Medicine; FAMILY PHYSICIAN Family Medicine
DX: J44.1 Chronic obstructive pulmonary disease with (acute) exacerbation (principal); E03.9 Hypothyroidism, unspecified; E78.00 Pure hypercholesterolemia, unspecified; I48.91 Unspecified atrial fibrillation; Z87.891 Personal history of nicotine dependence
CPT/HCPCS: 99284; 94640; 96374; 71046; 80053; 84484; 85025; 93005

== ENCOUNTER → 2025-05-13 13:46 | Outpatient (REF) | payer MEDICARE, OTHER, SELFPAY | LOC: RCS 13:46 | PROVIDERS: ATTENDING PHYSICIAN Internal Medicine Interventional Cardiology; FAMILY PHYSICIAN Family Medicine | DX: I42.8 Other cardiomyopathies (principal); I50.21 Acute systolic (congestive) heart failure; I44.7 Left bundle-branch block, unspecified | CPT/HCPCS: 93308; 93321; 93325 ==